=== PATIENT | female | born 1930 | race Caucasian/White ===

== ENCOUNTER 2016-10-12 15:30 | Outpatient (CLI) | payer MEDICARE, OTHER | END 2016-10-12 23:59 | DX: N28.9 Disorder of kidney and ureter, unspecified (principal); Z79.4 Long term (current) use of insulin; L03.213 Periorbital cellulitis; J04.0 Acute laryngitis; J20.9 Acute bronchitis, unspecified ==

== ENCOUNTER 2016-10-14 14:18 | Emergency (ER) | payer MEDICARE, OTHER | END 2016-10-14 17:34 | disposition home or self-care (01) | DX: R07.89 Other chest pain (principal); J06.9 Acute upper respiratory infection, unspecified; B97.89 Other viral agents as the cause of diseases classified elsewhere; I45.10 Unspecified right bundle-branch block; I11.0 Hypertensive heart disease with heart failure; I50.9 Heart failure, unspecified; E11.9 Type 2 diabetes mellitus without complications; Z79.4 Long term (current) use of insulin; Z79.82 Long term (current) use of aspirin ==

== ENCOUNTER 2016-10-18 16:15 | Outpatient (CLI) | payer MEDICARE, OTHER | END 2016-10-18 16:16 | disposition home or self-care (01) | DX: J01.90 Acute sinusitis, unspecified (principal) ==

== ENCOUNTER 2016-10-25 14:45 | Outpatient (CLI) | payer MEDICARE, OTHER | END 2016-10-25 14:46 | DX: D64.9 Anemia, unspecified (principal) ==

== ENCOUNTER 2016-11-09 15:00 | Outpatient (CLI) | payer MEDICARE, OTHER | END 2016-11-09 15:01 | DX: D64.9 Anemia, unspecified (principal) ==

== ENCOUNTER 2017-02-03 13:09 | Outpatient (CLI) | payer MEDICARE, OTHER | END 2017-02-03 13:10 | disposition home or self-care (01) | LOC: RT 13:09 | PROVIDERS: ATTEND Family Medicine | DX: R05 Cough (principal); R06.00 Dyspnea, unspecified | CPT/HCPCS: 94010; 94729 ==

== ENCOUNTER 2017-02-08 14:03 | Outpatient (CLI) | payer MEDICARE, OTHER ==
--- NOTE | 2017-02-09 16:32 | Mammography Report ---
DIGITAL SCREENING MAMMOGRAM: 02/08/2017 CLINICAL INDICATION: An 86-year-old, for screening. COMPARISON: 01/2016, 01/2015, 01/2014, 01/2013, 01/2012, 01/2011, 01/2010, 01/2009, 01/2008. TECHNIQUE: Routine CC and MLO projections were obtained of the breasts. FINDINGS: The breasts again demonstrate scattered fibroglandular densities bilaterally. Coarse and p unctate, typically benign calcifications are present. No suspicious masses, clustered microcalcificat ions, or regions of architectural distortion are identified. IMPRESSION: BENIGN FINDINGS. RECOMMENDATION: ROUTINE ANNUAL SCREENING UNLESS OTHERWISE CLINICALLY INDICATED. BIRADS CATEGORY 2-BENIGN FINDINGS. STANDARD QUALIFYING STATEMENTS 1. This examination was reviewed with the aid of Computer-Aided Detection (CAD). 2. A negative or benign imaging report should not delay biopsy if clinically suspicious findings are present. Consider surgical consultation if warranted. More than 5% of cancers are not identified by i maging. 3. Dense breasts may obscure an underlying neoplasm. JOB #: [id number] EXT JOB #:[id number]
== END 2017-02-08 14:04 | disposition home or self-care (01) ==
LOC: DI.N 14:03
PROVIDERS: ATTEND Family Medicine
DX: Z12.31 Encounter for screening mammogram for malignant neoplasm of breast (principal)
CPT/HCPCS: 77067

== ENCOUNTER 2017-03-16 09:20 | Outpatient (CLI) | payer MEDICARE, OTHER | END 2017-03-16 09:21 | LOC: LAB.WCP 09:20 | PROVIDERS: ATTEND Family Medicine | DX: N39.0 Urinary tract infection, site not specified (principal) | CPT/HCPCS: 87086 ==

== ENCOUNTER 2017-04-14 08:39 | Outpatient (CLI) | payer MEDICARE, OTHER ==
[2017-04-14 12:39] LABS: BASOPHILS % (AUTO) 0.5 %; EOSINOPHILS # (AUTO) 0.2 10^3/uL (0.0-0.7); EOSINOPHILS % (AUTO) 4.1 %; HCT - HEMATOCRIT 35.1 % (37.0-47.0); HGB - HEMOGLOBIN 11.8 g/dL (12.0-16.0); LYMPHOCYTES # (AUTO) 2.8 10^3/uL (1.5-3.5); MEAN CORPUSCULAR HEMOGLOBIN 31.2 pg (27.0-31.0); MEAN CORPUSCULAR HGB CONC 33.7 g/dL (32.0-36.0); MEAN CORPUSCULAR VOLUME 92.5 fL (81.0-99.0); MEAN PLATELET VOLUME 9.2 fL (7.9-10.8); MONOCYTES # (AUTO) 0.4 10^3/uL (0.0-1.0); MONOCYTES % (AUTO) 6.8 %; NEUTROPHILS # (AUTO) 2.3 10^3/uL (1.5-6.6); NEUTROPHILS % (AUTO) 39.6 %; NUCLEATED RED BLOOD CELLS AUTO 0.1 /100WBC; RED BLOOD COUNT 3.79 10^6/uL (4.20-5.40); RED CELL DISTRIBUTION WIDTH 14.1 % (12.0-15.0); UNCORRECTED WHITE BLOOD COUNT 5.8 x10^3/uL; WHITE BLOOD COUNT 5.8 x10^3/uL (4.8-10.8)
[2017-04-14 12:57] LABS: ALBUMIN/GLOBULIN RATIO 1.2 (1.0-2.2); BILIRUBIN,TOTAL 0.9 mg/dL (0.2-1.0); BUN - BLOOD UREA NITROGEN 38 mg/dL (6-20); CALCIUM 8.8 mg/dL (8.5-10.3); CARBON DIOXIDE - CO2 25 mmol/L (21-32); CHLORIDE 108 mmol/L (101-111); CHOL/HDL RATIO 3.6 (<4.4); CHOLESTEROL 162 mg/dL; CREATININE 2.4 mg/dL (0.4-1.0); GFR - MDRD 19 (>89); GLUCOSE 67 mg/dL (70-100); HDL CHOLESTEROL 45 mg/dL; HEMOGLOBIN A1C 0.61 g/dL; LDL/HDL RATIO 1.8 (<4.4); POTASSIUM 4.2 mmol/L (3.5-5.0); SODIUM 141 mmol/L (135-145); TOTAL PROTEIN 6.7 g/dL (6.7-8.2); TRIGLYCERIDES 183 mg/dL; VLDL CHOLESTEROL 37 mg/dL
== END 2017-04-14 08:40 | disposition home or self-care (01) ==
LOC: LAB.WCP 08:39
PROVIDERS: ATTEND Family Medicine
DX: I10 Essential (primary) hypertension (principal); E11.29 Type 2 diabetes mellitus with other diabetic kidney complication; E78.5 Hyperlipidemia, unspecified
CPT/HCPCS: 36415; 80053; 80061; 82043; 83036; 85025

== ENCOUNTER → 2017-05-08 | Outpatient (CLI) | payer MEDICARE, OTHER | LOC: LAB.WCP 08:00 | PROVIDERS: ATTEND Internal Medicine Nephrology | DX: R80.9 Proteinuria, unspecified (principal) | CPT/HCPCS: 82570; 84156 ==

== ENCOUNTER 2017-05-22 08:00 | Outpatient (CLI) | payer MEDICARE, OTHER ==
[2017-05-22 19:29] LABS: CALCIUM 8.7 mg/dL (8.5-10.3); CREATININE 2.1 mg/dL (0.4-1.0)
== END 2017-05-22 08:01 | disposition home or self-care (01) ==
LOC: LAB.WCP 08:00
PROVIDERS: ATTEND Student in an Organized Health Care Education/Training Program
DX: N05.9 Unspecified nephritic syndrome with unspecified morphologic changes (principal)
CPT/HCPCS: 36415; 80048

== ENCOUNTER 2017-05-24 15:22 | Outpatient (CLI) | payer MEDICARE, OTHER ==
--- NOTE | 2017-05-25 09:45 | Ultrasound Report ---
RENAL ULTRASOUND: 05/24/2017 CLINICAL INDICATION: Stage IV kidney disease. TECHNIQUE: Real-time scanning was performed with customer assistance representative static images obtained. FINDINGS: The right kidney measures 9.1 x 4.6 x 4.3 cm, and the left kidney measures 9.6 x 4.9 x 4.1 cm. Both kidneys demonstrate increased cortical echogenicity. No hydronephrosis or focal renal les ion is seen. Prevoid, the bladder measures 7.8 x 6.4 x 5.8 cm. No focal bladder wall lesion is seen. Bilateral u reteral jets are visualized. No postvoid residual is present. IMPRESSION: ECHOGENIC KIDNEYS, COMPATIBLE WITH MEDICAL RENAL DISEASE. NO HYDRONEPHROSIS OR POSTVOID RESIDUAL. JOB #: [id number] EXT JOB #:[id number]
== END 2017-05-24 15:23 | disposition home or self-care (01) ==
LOC: DI 15:22
PROVIDERS: ATTEND Internal Medicine Nephrology
DX: N18.4 Chronic kidney disease, stage 4 (severe) (principal)
CPT/HCPCS: 76770

== ENCOUNTER 2017-05-30 12:39 | Outpatient (CLI) | payer MEDICARE, OTHER | END 2017-05-30 12:40 | disposition home or self-care (01) | LOC: DI 12:39 | PROVIDERS: ATTEND Family Medicine | DX: I48.91 Unspecified atrial fibrillation (principal); I51.7 Cardiomegaly | CPT/HCPCS: 93306 ==

== ENCOUNTER 2017-06-16 08:00 | Outpatient (CLI) | payer MEDICARE, OTHER ==
[2017-06-16 20:04] LABS: CALCIUM 8.4 mg/dL (8.5-10.3); CREATININE 2.4 mg/dL (0.4-1.0); POTASSIUM 4.2 mmol/L (3.5-5.0)
== END 2017-06-16 08:01 | disposition home or self-care (01) ==
LOC: LAB.WCP 08:00
PROVIDERS: ATTEND Internal Medicine Nephrology
DX: N05.9 Unspecified nephritic syndrome with unspecified morphologic changes (principal)
CPT/HCPCS: 36415; 80048

== ENCOUNTER 2017-07-31 08:00 | Outpatient (CLI) | payer MEDICARE, OTHER ==
[2017-07-31 19:22] LABS: CALCIUM 8.5 mg/dL (8.5-10.3); CREATININE 2.9 mg/dL (0.4-1.0); PHOSPHORUS 4.8 mg/dL (2.5-4.6); POTASSIUM 3.5 mmol/L (3.5-5.0)
== END 2017-07-31 08:01 | disposition home or self-care (01) ==
LOC: LAB.WCP 08:00
PROVIDERS: ATTEND Internal Medicine Nephrology
DX: N05.9 Unspecified nephritic syndrome with unspecified morphologic changes (principal); R06.2 Wheezing; I10 Essential (primary) hypertension; E83.30 Disorder of phosphorus metabolism, unspecified; N25.81 Secondary hyperparathyroidism of renal origin
CPT/HCPCS: 36415; 80048; 83880; 83970; 84100

== ENCOUNTER 2017-08-06 09:26 | Emergency (ER) | payer MEDICARE, OTHER ==
[2017-08-06 09:38] VITALS: BP 144/54
[2017-08-06] MEDS ORDERED: ACETAMINOPHEN 325 MG TABLET PO STA (10:14)
--- NOTE | 2017-08-06 10:16 | ED Physician Documentation ---
PD HPI HEENT - Stated complaint Stated Complaint: R EAR PX - Chief complaint Chief Complaint: Heent - History obtained from History obtained from: Patient, Friend - History of Present Illness Timing - onset: How many weeks ago (1) Timing - duration: Weeks (1) Timing - details: Gradual onset, Still present Location: Right ear Associated symptoms: Congestion, Rhinorrhea, Cough. No: Fever Similar symptoms before: Diagnosis (ear infection) Recently seen: Not recently seen - Additional information Additional information: 87-year-old female has had a cough and congestion for the past week. She has developed some yellow and green phlegm from her nose and coughing. She is not having chest pain or shortness of breath she has not had a fever. She has developed ear pain this morning and she is coming to the emergency department. She has pain in the right ear only. She has last seen her primary care doctor in follow-up in June for a prior URI. Review of Systems Constitutional: denies: Fever Eyes: denies: Decreased vision Ears: reports: Ear pain Nose: reports: Rhinorrhea / runny nose, Congestion Throat: denies: Sore throat Cardiac: denies: Chest pain / pressure, Palpitations Respiratory: reports: Cough. 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: Hysterectomy - Present Medications Home Medications: Ambulatory Orders Medication Instructions Recorded Confirmed Aspirin 81 mg PO DAILY 07/06/14 08/06/17 Insulin Glargine,Hum.rec.anlog 15 units SUBQ QPM 07/06/14 08/06/17 [Lantus Solostar] Insulin Glulisine [Apidra Solostar] 4 units SUBQ 0800,1700 07/06/14 08/06/17 Lisinopril 20 mg PO BID 07/06/14 08/06/17 Simvastatin [Zocor] 20 mg PO QPM 07/06/14 08/06/17 Insulin Glulisine [Apidra] 8 unit SUBQ 1200 01/20/16 08/06/17 Azithromycin [Zithromax] 250 mg PO DAILY #6 tablet 08/06/17 - Allergies Allergies/Adverse Reactions: Allergies Allergy/AdvReac Type Severity Reaction Status Date / Time butalbital [From Fiorinal] Allergy Unknown Verified 10/14/16 14:36 Sulfa (Sulfonamide Allergy Unknown Verified 08/06/17 09:38 Antibiotics) sulfamethoxazole Allergy Unknown Verified 10/14/16 14:36 [From Aprra] trimethoprim [From ] Allergy Unknown Verified 10/14/16 14:36 venom-honey bee Allergy Anaphylaxis Verified 10/14/16 14:36 [bee venom (honey bee)] - Social History Does the pt smoke?: No Smoking Status: Never smoker Does the pt drink ETOH?: No Does the pt have substance abuse?: No PD ED PE NORMAL - Vitals Vital signs reviewed: Yes (Hypertensive) - General General: No acute distress, Well developed/nourished - HEENT HEENT: Atraumatic, PERRL, EOMI, Other (There is inflammation of the right TM with flattening of the landmarks. The left TM has minimal erythema.) - Neck Neck: Supple, no meningeal sign, No bony TTP - Cardiac Cardiac: RRR, Other (2 out of 6 holosystolic murmur at left sternal border) - Respiratory Respiratory: No respiratory distress, Clear bilaterally - Abdomen Abdomen: Soft, Non tender - Back Back: No CVA TTP, No spinal TTP - Derm Derm: Normal color, Warm and dry, No rash - Extremities Extremities: No deformity, No edema - Neuro Neuro: No motor deficit, No sensory deficit Eye Opening: Spontaneous Motor: Obeys Commands Verbal: Oriented GCS Score: 15 - Psych Psych: Normal mood, Normal affect Results - Vitals Vitals: Vital Signs - 24 hr 08/06/17 09:34 Temperature 36.1 C L Heart Rate 100 Respiratory 18 Rate Blood Pressure 144/54 H O2 Saturation 93 Oxygen O2 Source Room air PD MEDICAL DECISION MAKING - ED course Complexity details: reviewed old records, considered differential, d/w patient, d/w family ED course: 87-year-old female with right otitis media is given Tylenol orally for pain control. Will place her on some azithromycin. She has diabetes and we will forego use of dexamethasone. Departure - Departure Disposition: 01 Home, Self Care Clinical Impression: Otitis media Qualifiers: Otitis media type: suppurative Chronicity: acute Laterality: right Recurrence: not specified as recurrent Spontaneous tympanic membrane rupture: without spontaneous rupture Qualified Code(s): H66.001 - Acute suppurative otitis media without spontaneous rupture of ear drum, right ear Condition: Stable Instructions: ED Otitis Media Acute Adult Follow-Up: Tabitha Kingston MD [Primary Care Provider] - Prescriptions: Azithromycin [Zithromax] 250 mg PO DAILY #6 tablet
[2017-08-06] MEDS ORDERED: ACETAMINOPHEN 325 MG TABLET PO ONE (10:26)
== END 2017-08-06 10:28 | disposition home or self-care (01) ==
LOC: ED 09:26
DX: H66.001 Acute suppurative otitis media without spontaneous rupture of ear drum, right ear (principal); I11.0 Hypertensive heart disease with heart failure; I50.9 Heart failure, unspecified; E11.9 Type 2 diabetes mellitus without complications; Z79.4 Long term (current) use of insulin; Z79.82 Long term (current) use of aspirin
CPT/HCPCS: 99283; A9270

== ENCOUNTER 2017-08-15 08:46 | Outpatient (CLI) | payer MEDICARE, OTHER ==
--- NOTE | 2017-08-15 10:18 | Nuclear Medicine Prelim Report ---
Exam: NM LUNG VENT/PERF V/Q IMPRESSION: 1. No ventilation/perfusion mismatches to indicate pulmonary emboli. Low probability for acute pulmon yuliya embolism. [facility] SITE ID: [id number]
--- NOTE | 2017-08-15 10:21 | Nuclear Medicine Report ---
EXAM: VENTILATION/PERFUSION SCAN (V/Q SCAN) EXAM DATE: 08/15/2017 09:51 AM. CLINICAL HISTORY: RESPIRATORY DISTRESS. COMPARISON: None. TECHNIQUE: Patient was administered 42.4 mCi of technetium 99m DTPA aerosol by inhalation and 8 stand turner ventilation images of the lungs were obtained. Next, the patient was injected with 5.0 mCi of carlyle hnetium 99m MAA intravenously and 8 standard perfusion images of the lungs were obtained. FINDINGS: Perfusion images demonstrate mildly inhomogeneous perfusion to the lungs bilaterally without convinci ng segmental deficit. Endotracheal images demonstrate corresponding radiotracer deposition without co nvincing mismatch. There is minimal central airway deposition. IMPRESSION: 1. No ventilation/perfusion mismatches to indicate pulmonary emboli. Low probability for acute pulmon yuliya embolism. [facility] Referring Provider Line: [phone] SITE ID: [id number]
== END 2017-08-15 08:47 | disposition home or self-care (01) ==
LOC: DI 08:46
PROVIDERS: ATTEND Family Medicine
DX: R06.09 Other forms of dyspnea (principal)
CPT/HCPCS: 78582; A9539; A9540

== ENCOUNTER 2017-08-22 08:00 | Outpatient (CLI) | payer MEDICARE, OTHER | END 2017-08-22 08:01 | disposition home or self-care (01) | LOC: LAB.WCP 08:00 | PROVIDERS: ATTEND Family Medicine | DX: I50.9 Heart failure, unspecified (principal) | CPT/HCPCS: 36415; 83880 ==

== ENCOUNTER 2017-08-29 08:00 | Outpatient (CLI) | payer MEDICARE, OTHER | END 2017-08-29 08:01 | disposition home or self-care (01) | LOC: LAB.WCP 08:00 | PROVIDERS: ATTEND Family Medicine | DX: I50.9 Heart failure, unspecified (principal) | CPT/HCPCS: 36415; 83880 ==

== ENCOUNTER 2017-09-05 14:35 | Outpatient (CLI) | payer MEDICARE, OTHER ==
[2017-09-05 19:58] LABS: CALCIUM 8.7 mg/dL (8.5-10.3); CREATININE 3.3 mg/dL (0.4-1.0)
== END 2017-09-05 14:36 | disposition home or self-care (01) ==
LOC: LAB.WCP 14:35
PROVIDERS: ATTEND Family Medicine
DX: Z79.01 Long term (current) use of anticoagulants (principal); I50.32 Chronic diastolic (congestive) heart failure; N05.9 Unspecified nephritic syndrome with unspecified morphologic changes
CPT/HCPCS: 36415; 80048; 83880; 85610; 85730

== ENCOUNTER 2017-09-21 08:00 | Outpatient (CLI) | payer MEDICARE, OTHER ==
[2017-09-21 12:54] LABS: CALCIUM 8.5 mg/dL (8.5-10.3); CREATININE 3.2 mg/dL (0.4-1.0)
== END 2017-09-21 08:01 | disposition home or self-care (01) ==
LOC: LAB.WCP 08:00
PROVIDERS: ATTEND Internal Medicine Nephrology
DX: N05.9 Unspecified nephritic syndrome with unspecified morphologic changes (principal)
CPT/HCPCS: 80048

== ENCOUNTER 2017-10-02 11:15 | Outpatient (CLI) | payer MEDICARE, OTHER ==
[2017-10-02 19:53] LABS: BASOPHILS % (AUTO) 0.5 %; EOSINOPHILS # (AUTO) 0.1 10^3/uL (0.0-0.7); EOSINOPHILS % (AUTO) 1.4 %; LYMPHOCYTES # (AUTO) 1.9 10^3/uL (1.5-3.5); LYMPHOCYTES % (AUTO) 42.9 %; MEAN CORPUSCULAR HGB CONC 32.7 g/dL (32.0-36.0); MEAN CORPUSCULAR VOLUME 91.6 fL (81.0-99.0); MEAN PLATELET VOLUME 8.8 fL (7.9-10.8); MONOCYTES # (AUTO) 0.5 10^3/uL (0.0-1.0); MONOCYTES % (AUTO) 10.4 %; NEUTROPHILS % (AUTO) 44.8 %; PLT - PLATELET COUNT 138 10^3/uL (130-450); RED BLOOD COUNT 2.99 10^6/uL (4.20-5.40); RED CELL DISTRIBUTION WIDTH 14.5 % (12.0-15.0); WHITE BLOOD COUNT 4.5 x10^3/uL (4.8-10.8)
[2017-10-02 20:15] LABS: CALCIUM 7.9 mg/dL (8.5-10.3); CREATININE 2.3 mg/dL (0.4-1.0)
[2017-10-02 22:36] LABS: PLATELET ESTIMATE, MANUAL NORMAL (130-450,000) (NORMAL); PLATELET MORPHOLOGY NORMAL APPEARANCE (NORMAL)
== END 2017-10-02 11:16 | disposition home or self-care (01) ==
LOC: LAB.WCP 11:15
PROVIDERS: ATTEND Internal Medicine Nephrology
DX: N05.9 Unspecified nephritic syndrome with unspecified morphologic changes (principal); I50.32 Chronic diastolic (congestive) heart failure; D70.9 Neutropenia, unspecified
CPT/HCPCS: 36415; 80048; 83880; 85025

== ENCOUNTER 2017-10-15 02:39 | Outpatient (CLI) | payer MEDICARE, OTHER | END 2017-10-15 02:40 | disposition critical access hospital (66) | LOC: EMS 02:39 | PROVIDERS: ATTEND Surgery | DX: R06.02 Shortness of breath (principal) | CPT/HCPCS: A0425; A0427 ==

== ENCOUNTER 2017-10-15 02:59 | Inpatient (IN) | payer MEDICARE, OTHER ==
[2017-10-15 03:43] LABS: BASOPHILS % (AUTO) 0.6 %; EOSINOPHILS # (AUTO) 0.1 10^3/uL (0.0-0.7); EOSINOPHILS % (AUTO) 1.5 %; HGB - HEMOGLOBIN 8.8 g/dL (12.0-16.0); LYMPHOCYTES # (AUTO) 1.8 10^3/uL (1.5-3.5); LYMPHOCYTES % (AUTO) 40.1 %; MEAN CORPUSCULAR HEMOGLOBIN 30.7 pg (27.0-31.0); MEAN CORPUSCULAR HGB CONC 34.2 g/dL (32.0-36.0); MEAN CORPUSCULAR VOLUME 89.8 fL (81.0-99.0); MEAN PLATELET VOLUME 7.4 fL (7.9-10.8); MONOCYTES # (AUTO) 0.5 10^3/uL (0.0-1.0); MONOCYTES % (AUTO) 10.6 %; NEUTROPHILS # (AUTO) 2.2 10^3/uL (1.5-6.6); NEUTROPHILS % (AUTO) 47.2 %; PLT - PLATELET COUNT 146 10^3/uL (130-450); RED BLOOD COUNT 2.87 10^6/uL (4.20-5.40); RED CELL DISTRIBUTION WIDTH 14.8 % (12.0-15.0); WHITE BLOOD COUNT 4.6 x10^3/uL (4.8-10.8)
[2017-10-15] MEDS ORDERED: IPRATROPIUM/ALBUTEROL 3 ML NEB INH STA (03:44)
[2017-10-15] MEDS ORDERED: LEVALBUTEROL 1.25 MG/3 ML NEB INH STA (03:44)
[2017-10-15 03:52] LABS: CALCIUM 8.7 mg/dL (8.5-10.3); CREATININE 2.7 mg/dL (0.4-1.0)
--- NOTE | 2017-10-15 03:56 | ED Physician Documentation ---
PD HPI DYSPNEA - Stated complaint Stated Complaint: SOA/CHEST PAIN - Chief complaint Chief Complaint: Resp - History obtained from History obtained from: Patient - History of Present Illness Timing - onset: How many days ago (4-5 days ago) Timing - details: Gradual onset, Waxing and waning Improved by: Rest Worsened by: Exertion, Coughing Associated symptoms: Cough, Chest pain / discomfort (transient chest pain associated with coughing). No: Fever Similar symptoms before: Has not had sx before Recently seen: Clinic (evaluated at outpatient clinic 2 days ago for cough, dyspnea, and was prescribed proair MDI but she reports no noticeable improvement with this medication) - Additional information Additional information: c/o several days of gradual onset, gradually worsening dyspnea and productive cough. Tonight she has also developed nausea, vomiting. Review of Systems Constitutional: reports: Fatigue. denies: Fever, Chills, Sweats Nose: reports: Reviewed and negative Throat: reports: Reviewed and negative Cardiac: reports: Chest pain / pressure (only with coughing). denies: Palpitations, Pedal edema, Calf pain Respiratory: reports: Dyspnea, Cough. denies: Wheezing GI: reports: Nausea, Vomiting. denies: Abdominal Pain, Constipation, Diarrhea : denies: Dysuria, Frequency Skin: denies: Rash Neurologic: reports: Generalized weakness. 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: Hysterectomy - Present Medications Home Medications: Ambulatory Orders Medication Instructions Recorded Confirmed Insulin Glargine,Hum.rec.anlog 20 units SUBQ QPM 07/06/14 10/15/17 [Lantus Solostar] Simvastatin [Zocor] 20 mg PO QPM 07/06/14 10/15/17 Insulin Glulisine [Apidra] 6 unit SUBQ BIDWM 01/20/16 10/15/17 Doxazosin [Cardura] 4 mg PO QPM 10/15/17 10/15/17 Furosemide [Lasix] 40 mg PO DAILY 10/15/17 10/15/17 Insulin Glulisine [Apidra Solostar] 8 unit SUBQ 1200 10/15/17 10/15/17 Lisinopril [Lisinopril] 20 mg PO BID 10/15/17 10/15/17 Nitroglycerin 0.1 mg/Hr Patch 1 each TOP DAILY 10/15/17 10/15/17 [Nitro-Dur] amLODIPine [Norvasc] 5 mg PO QPM 10/15/17 10/15/17 hydrALAZINE [Apresoline] 25 mg PO QID 10/15/17 10/15/17 hydroCHLOROthiazide [Hydrodiuril] 25 mg PO DAILY 10/15/17 10/15/17 - Allergies Allergies/Adverse Reactions: Allergies Allergy/AdvReac Type Severity Reaction Status Date / Time butalbital [From Fiorinal] Allergy Unknown Verified 10/14/16 14:36 Sulfa (Sulfonamide Allergy Unknown Verified 08/06/17 09:38 Antibiotics) sulfamethoxazole Allergy Unknown Verified 10/14/16 14:36 [From Aprra] trimethoprim [From ] Allergy Unknown Verified 10/14/16 14:36 venom-honey bee Allergy Anaphylaxis Verified 10/14/16 14:36 [bee venom (honey bee)] - Social History Does the pt smoke?: No Smoking Status: Never smoker Does the pt drink ETOH?: No Does the pt have substance abuse?: No PD ED PE NORMAL - Vitals Vital signs reviewed: Yes - General General: Alert and oriented X 3, Well developed/nourished, Other (appears anxious; vomiting ("dry heaving") at times during H+P) - HEENT HEENT: Moist mucous membranes - Neck Neck: Supple, no meningeal sign - Cardiac Cardiac: RRR, No murmur - Respiratory Respiratory: No respiratory distress, Clear bilaterally - Abdomen Abdomen: Normal bowel sounds, Soft, Non tender, Non distended - Back Back: No CVA TTP - Derm Derm: Normal color - Extremities Extremities: No edema - Neuro Neuro: Alert and oriented X 3 Results - Vitals Vitals: Oxygen O2 Source Room air - EKG (time done) No standard instances Rate: Rate (enter#) (101), Tachy Rhythm: Sinus tachycardia [place]: Normal Intervals: Normal [place], RBBB QRS: Normal Ischemia: Normal ST segments - Labs Labs: Microbiology 10/15/17 03:45 Blood Culture - Preliminary Blood NO GROWTH AFTER 1 DAY 10/15/17 03:40 Blood Culture - Preliminary Blood NO GROWTH AFTER 1 DAY Laboratory Tests 10/15/17 10/15/17 10/15/17 03:25 03:25 03:25 WBC 4.6 L RBC 2.87 L Hgb 8.8 L Hct 25.8 L MCV 89.8 MCH 30.7 MCHC 34.2 RDW 14.8 Plt Count 146 MPV 7.4 L Neut # 2.2 Lymph # 1.8 [place] # 0.5 Eos # 0.1 Baso # 0.0 Absolute Nucleated RBC 0.00 Nucleated RBC % 0.0 Sodium 136 Potassium 3.1 L Chloride 101 Carbon Dioxide 22 Anion Gap 13.0 BUN 63 H Creatinine 2.7 H Estimated GFR (MDRD) 17 L Glucose 208 H Lactic Acid Calcium 8.7 Troponin I 0.06 B-Natriuretic Peptide Influenza A (Rapid) Influenza B (Rapid) Influenza Types A,B Ag 10/15/17 10/15/17 10/15/17 03:25 03:36 03:42 WBC RBC Hgb Hct MCV MCH MCHC RDW Plt Count MPV Neut # Lymph # [place] # Eos # Baso # Absolute Nucleated RBC Nucleated RBC % Sodium Potassium Chloride Carbon Dioxide Anion Gap BUN Creatinine Estimated GFR (MDRD) Glucose Lactic Acid 1.2 Calcium Troponin I B-Natriuretic Peptide 318 H Influenza A (Rapid) Negative Influenza B (Rapid) Negative Influenza Types A,B Ag - - Rads (name of study) chest xray Radiology: Prelim report reviewed, See rad report PD MEDICAL DECISION MAKING - ED course Complexity details: reviewed results, re-evaluated patient, considered differential, d/w patient ED course: patient continued to have nausea and vomiting during ED stay despite IV fluids and zofran. will admit for further testing, observation, and treatment Departure - Departure Disposition: [facility] DC/Xfer Clinical Impression: Vomiting Qualifiers: Vomiting type: unspecified Vomiting Intractability: intractable Nausea presence : with nausea Qualified Code(s): R11.2 - Nausea with vomiting, unspecified Chest pain Qualifiers: Chest pain type: unspecified Qualified Code(s): R07.9 - Chest pain, unspecified Condition: Stable Discharge Date/Time: 10/15/17 07:55
--- NOTE | 2017-10-15 04:46 | XRAY Preliminary Report ---
Exam: XR CHEST 2 VIEW X-RAY IMPRESSION: 1. Large lung volumes and borderline heart size. [facility] SITE ID: [id number]
--- NOTE | 2017-10-15 04:46 | XRAY Report ---
EXAM: CHEST RADIOGRAPHY EXAM DATE: 10/15/2017 04:34 AM. CLINICAL HISTORY: Cough, dyspnea. COMPARISON: 06/19/2017. TECHNIQUE: 2 views. FINDINGS: Lungs/Pleura: Large lung volumes. No alveolar consolidation or pleural effusion seen. No pneumothorax . Mediastinum: Heart size upper normal. Aortic atherosclerosis. Other: Osteopenia. Rotator cuff atrophy in the shoulders. IMPRESSION: 1. Large lung volumes and borderline heart size. [facility] Referring Provider Line: [phone] SITE ID: [id number]
[2017-10-15] MEDS ORDERED: ONDANSETRON 4 MG/2 ML VIAL IVP STA ×3 (04:48→06:55)
[2017-10-15] MEDS ORDERED: SODIUM CHLORIDE 0.9% 500 ML IV STA (05:21)
[2017-10-15] MEDS ORDERED: MORPHINE 2 MG/ML CARPUJECT IVP PRN (06:39)
--- NOTE | 2017-10-15 07:22 | HISTORY & PHYSICAL EXAMINATION ---
Chief Complaint - Chief Complaint Chief Complaint: nausea and vomiting History of Present Illness - Admitted From Admitted From:: ED - History Obtained From Records Reviewed: yes History obtained from: chart review, friend, patient Exam Limitations: physical condition - History of Present Illness HPI Comment/Other: Ayde Boudreaux is an 87-year old female with an extensive past medical history of DM type 2, hypertension, hyperlipidemia, sciatica, mild aortic stenosis, CKD stage 4-sees nephrology, and CHF. The patient pressed her life line at around 2AM with complaints of nausea and vomiting and was brought to the ED for further evaluation. She has been sick since June of 2017 and most recently got an eusthasian tube implanted in her right ear for recurrent infections. She was found to be febrile with a temp max of 37.9 in the ED, hypertensive with a blood pressure of 154/94, and tachycardic with a heart rate of 103. Her WBC was actually low at 4.6. Patient will be admitted to inpatient for further treatment of nausea, chest pain work up including serial troponins and evaluation of febrile status. 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 Her mother had a history of DM type 2, father with no known illnesses. She as 4 brothers, 3 sisters, 3 of which have of cancer, including colon cancer. She also had a twin brother who of a CVA, DC. Living arrangement: At home Living Situation: Alone Social History Notes: The patient is , her ~2 years ago at age 88 from an [place]. She has one daughter who lives in [place] and multiple grandchildren. Her granddaughter, Cary and is listed as first contact lives in [place], [place]. The patient lives in [place], alone in a 1-story home. She has a few life-long friends who are close to her, the main friend being Harriet. 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 She states that she does not drink alcohol, use illicit drugs, and has never been a smoker. - Substance History Use: Uses substance without health or social issues: NONE Abuse: Recurrent use of substance despite neg consequences: NONE Dependence: Experiences withdrawal or developed tolerances: NONE - POLST Patient has POLST: No POLST Status: Limited Interventions (Per interview with family friend, Harriet and phone interview with grand daughter, Cary, patient does not want to be left on a ventilator and/or not kept alive if she may be brain .) Meds/Allgy - Home Medications Home Medications: Ambulatory Orders Medication Instructions Recorded Confirmed Insulin Glargine,Hum.rec.anlog 20 units SUBQ QPM 07/06/14 10/15/17 [Lantus Solostar] Simvastatin [Zocor] 20 mg PO QPM 07/06/14 10/15/17 Insulin Glulisine [Apidra] 6 unit SUBQ BIDWM 01/20/16 10/15/17 Apixaban [Eliquis] 2.5 mg PO BID 10/15/17 10/15/17 Doxazosin [Cardura] 4 mg PO QPM 10/15/17 10/15/17 Furosemide [Lasix] 40 mg PO DAILY 10/15/17 10/15/17 Insulin Glulisine [Apidra Solostar] 8 unit SUBQ 1200 10/15/17 10/15/17 Lisinopril [Lisinopril] 20 mg PO BID 10/15/17 10/15/17 Nitroglycerin 0.1 mg/Hr Patch 1 each TOP DAILY 10/15/17 10/15/17 [Nitro-Dur] amLODIPine [Norvasc] 5 mg PO QPM 10/15/17 10/15/17 hydrALAZINE [Apresoline] 25 mg PO QID 10/15/17 10/15/17 hydroCHLOROthiazide [Hydrodiuril] 25 mg PO DAILY 10/15/17 10/15/17 - Allergies Allergies/Adverse Reactions: Allergies Allergy/AdvReac Type Severity Reaction Status Date / Time butalbital [From Fiorinal] Allergy Unknown Verified 10/14/16 14:36 Sulfa (Sulfonamide Allergy Unknown Verified 08/06/17 09:38 Antibiotics) sulfamethoxazole Allergy Unknown Verified 10/14/16 14:36 [From ] trimethoprim [From ] Allergy Unknown Verified 10/14/16 14:36 venom-honey bee Allergy Anaphylaxis Verified 10/14/16 14:36 [bee venom (honey bee)] Review of Systems - Constitutional Constitutional: reports: Fatigue, Fever, Weakness, Poor appetite - Eyes Eyes: reports: Corrective lenses - Ears, Nose & Throat Ears, Nose & Throat: reports: Ear pain, Hearing loss, Nasal congestion - Cardiovascular Cariovascular: reports: Chest pain (resolved, but was a primary complaint.), Lightheadedness, Decr. exercise tolerance. denies: Irregular heart rate, Palpitations - Respiratory Respiratory: reports: Cough, SOB with exertion - Gastrointestinal Gastrointestinal: reports: Diarrhea, Nausea, Vomiting, Reflux/heartburn, Poor appetite - Genitourinary Genitourinary: reports: Frequency, Urgency, Incontinence, Nocturia - Musculoskeletal Musculoskeletal: reports: Limited range of motion, Joint swelling - Integumentary Integumentary: denies: Rash, Pruritis - Neurological Neurological: denies: Focal weakness, Headache, Dizziness - Psychiatric Psychiatric: denies: Depression, Anxiety - Endocrine Endocrine: reports: Intolerance to cold - Hematologic/Lymphatic Hematologic/Lymphatic: reports: Anemia, Recurrent infections - All Other Systems All Other Systems: reports: Reviewed and negative Exam - Vital Signs Reviewed Vital Signs: Yes Vital Signs: Vital Signs x48h Temp Pulse Resp BP Pulse Ox 10/15/17 07:04 37.5 C 88 18 148/47 H 93 - Physical Exam General Appearance: positive: Alert, Moderate distress, Anxious, Lethargic Eyes Bilateral: positive: Normal inspection ENT: positive: ENT inspection nml, Pharynx nml, Dry mucous membranes Neck: positive: Nml inspection, Thyroid nml, No JVD, Stiff neck Respiratory: positive: Chest non-tender, No respiratory distress, Other (coarse crackles bilateral lower lobes.) Cardiovascular: positive: No gallop, Irregularly irregular, Systolic murmur, Decreased pulse(s) Peripheral Pulses: positive: 1+ Abdomen: positive: Tenderness, Hepatomegaly, Abnml bowel sounds Back: positive: Nml inspection Skin: positive: No rash, Warm, Dry, Pallor Extremities: positive: Non-tender, Full ROM, Nml appearance, No pedal edema Neurologic/Psychiatric: positive: Disoriented to time, Weakness, Sensory loss, Depressed mood/affect Reflexes: Bicep (R): 2+, Bicep (L): 2+ Conclusion/Plan - Problem List (1) Diabetes mellitus type 2 in nonobese Conclusion/Plan: Patient is a known diabetic and is insulin dependent on daily Lantus. Plan: Continue home doses and monitor blood sugars. (2) CHF (congestive heart failure) Conclusion/Plan: Patient last had an echocardiogram in May 2017. 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 Patient remains on medical management including a diuretic and PAOLA/ARB. Repeat echocardiogram was completed and shows worsening aortic stenosis. Plan: Maintain fluid balance and continue medications with the exception of diuretic due to IV resuscitation. Qualifiers: Congestive heart failure type: combined (3) Community acquired pneumonia Conclusion/Plan: Upon admission, a chest x-ray did not indicate pneumonia possibly due to patient being low on fluids. An abdominal CT was obtained due to nausea and confirms pneumonia. Patient had a temp max today of 39.2. Plan: Azithromycin IV for treatment of CAP. Attempt to obtain sputum cultures. Await blood culture results. Qualifiers: Lung location: lower lobe of lung (4) Intractable nausea and vomiting Conclusion/Plan: Upon transport to the nursing floor patient was noted to be dry heaving, with ongoing nausea. Per chart review, patient was having this in the middle of the night and this is also her primary complaint to me. Plan: Treat with anti-emetics and gentle IVFs. - Lab Results Lab results reviewed: Yes Fish Bones: 10/16/17 05:23 10/16/17 05:23 - Diagnostic Imaging Results Diagnostic Imaging Results: positive: Prelim report reviewed, Final report reviewed Diagnostic Imaging Results Comments: EXAM: CHEST RADIOGRAPHY EXAM DATE: 10/15/2017 04:34 AM. CLINICAL HISTORY: Cough, dyspnea. COMPARISON: 06/19/2017. TECHNIQUE: 2 views. FINDINGS: Lungs/Pleura: Large lung volumes. No alveolar consolidation or pleural effusion seen. No pneumothorax. Mediastinum: Heart size upper normal. Aortic atherosclerosis. Other: Osteopenia. Rotator cuff atrophy in the shoulders. IMPRESSION: 1. Large lung volumes and borderline heart size. EXAM: CT ABDOMEN AND PELVIS EXAM DATE: 10/15/2017 09:07 AM. CLINICAL HISTORY: Nausea and vomiting. COMPARISONS: None. TECHNIQUE: Routine helical CT imaging was performed through the abdomen and pelvis. IV contrast: None. Enteric contrast: No. Reconstructions: Coronal and sagittal. In accordance with CT protocol optimization, one or more of the following dose reduction techniques were utilized for this exam: automated exposure control, adjustment of mA and/or KV based on patient size, or use of iterative reconstructive technique. FINDINGS: Lung Bases: Patchy consolidation at the lung bases bilaterally most pronounced at the right lower lobe and to a lesser degree the right middle and left lower lobe, suggesting pneumonia. Liver: Nodular contour suggesting cirrhosis. No convincing focal lesion. Gallbladder/Bile Ducts: Tiny calcified dependent gallstone. No secondary signs of inflammation or evidence of ductal enlargement. Spleen: Normal. Pancreas: Normal. Adrenal Glands: Normal. Kidneys: No hydronephrosis. 8 mm exophytic right lower pole renal cortical hypodensity, indeterminate by noncontrast CT although possibly cyst. Ultrasound correlation suggested. Peritoneal Cavity/Bowel: No free air or free fluid. Scattered primarily sigmoid colonic diverticulosis. No evidence of obstruction. Appendix is not clearly visualized; no pericecal inflammatory changes are evident. Pelvic Organs: Urinary bladder is decompressed. Uterus is absent. Ovaries are not identified and may be absent. Vasculature: No aneurysms or other significant abnormality. Fairly diffuse atherosclerotic calcification of the aorta. Bones: No definite acute fracture or suspicious bony lesion. Large superior endplate Schmorl's node and minimal central depression at L2. Other: Small epigastric fat-containing ventral hernia. IMPRESSION: 1. Bibasal pulmonary consolidation most pronounced at the right lower lobe, consistent with pneumonia. 2. Cirrhosis. 3. Cholelithiasis. 4. Diverticulosis. 5. Indeterminate 8 mm right lower pole renal cortical hypodensity. Ultrasound correlation suggested. 6. Other findings as noted above. EXAM ECHOCARDIOGRAM: 10/15/17 The LV size is decreased. Moderate concentric LV hyertrophy. Overall LV systolic function is normal with an EF of 70-75%. Pseudonormal LV filling pattern consistent with Grade II diastolic dysfunction. No regional wall motion abnormalities are seen. The RV is normal in size and function. Moderate increase in the LA volume index. The RA size is normal. The aortic valve leaflets are mild-moderately calcified. Mild aortic stenosis with peak/mean pressure gradient of 40mmHg/23mmHg, the aortic valve area by continuity equation is 1.85. There is trace-mild aortic regurg, as compared to the 05/2017 echo, aortic stenosis has progressed. Mild mitral regurg, mild tricuspid regurg. Moderately abnormal right heart pressures. The RVSP at rest is 58mmHg. No pulmonic stenosis. - EKG Results EKG Interpreted Independently: Yes Core Measures - Anticipated LOS I expect patient to be DC'd or transferred within 96 hours.: Yes - DVT/VTE - Prophylaxis VTE/DVT Device ordered at admit?: Yes VTE/DVT Prophylaxis med ordered at admit?: Yes - Stroke - Rehab Assessment Rehab services assessment to be ordered?: Yes - AMI - Statin at Admit Aspirin Prescribed on Admit: Yes
[2017-10-15] MEDS ORDERED: PROCHLORPERAZINE INJ 10 MG in SODIUM CHLORIDE 0.9% 50 ML IV PRN (08:26)
[2017-10-15] MEDS ORDERED: INSULIN GLARGINE 300 UNIT/3 ML PEN SUBQ SCH ×3 (09:00→21:00)
[2017-10-15] MEDS ORDERED: ENOXAPARIN 40 MG/0.4 ML SYRINGE SUBQ SCH (09:00)
[2017-10-15] MEDS: POLYETHYLENE GLYCOL 3350 17 GM PACKET PO SCH (09:40)
--- NOTE | 2017-10-15 09:44 | CT Report ---
EXAM: CT ABDOMEN AND PELVIS EXAM DATE: 10/15/2017 09:07 AM. CLINICAL HISTORY: Nausea and vomiting. COMPARISONS: None. TECHNIQUE: Routine helical CT imaging was performed through the abdomen and pelvis. IV contrast: None . Enteric contrast: No. Reconstructions: Coronal and sagittal. In accordance with CT protocol optimization, one or more of the following dose reduction techniques w ere utilized for this exam: automated exposure control, adjustment of mA and/or KV based on patient s ize, or use of iterative reconstructive technique. FINDINGS: Lung Bases: Patchy consolidation at the lung bases bilaterally most pronounced at the right lower lob e and to a lesser degree the right middle and left lower lobe, suggesting pneumonia. Liver: Nodular contour suggesting cirrhosis. No convincing focal lesion. Gallbladder/Bile Ducts: Tiny calcified dependent gallstone. No secondary signs of inflammation or anisa dence of ductal enlargement. Spleen: Normal. Pancreas: Normal. Adrenal Glands: Normal. Kidneys: No hydronephrosis. 8 mm exophytic right lower pole renal cortical hypodensity, indeterminate by noncontrast CT although possibly cyst. Ultrasound correlation suggested. Peritoneal Cavity/Bowel: No free air or free fluid. Scattered primarily sigmoid colonic diverticulosi s. No evidence of obstruction. Appendix is not clearly visualized; no pericecal inflammatory changes are evident. Pelvic Organs: Urinary bladder is decompressed. Uterus is absent. Ovaries are not identified and may be absent. Vasculature: No aneurysms or other significant abnormality. Fairly diffuse atherosclerotic calcificat ion of the aorta. Bones: No definite acute fracture or suspicious bony lesion. Large superior endplate Schmorl's node a nd minimal central depression at L2. Other: Small epigastric fat-containing ventral hernia. IMPRESSION: 1. Bibasal pulmonary consolidation most pronounced at the right lower lobe, consistent with pneumonia . 2. Cirrhosis. 3. Cholelithiasis. 4. Diverticulosis. 5. Indeterminate 8 mm right lower pole renal cortical hypodensity. Ultrasound correlation suggested. 6. Other findings as noted above. [facility] Referring Provider Line: [phone] SITE ID: [id number]
[2017-10-15] MEDS: FAMOTIDINE 20 MG TABLET PO SCH (09:50)
[2017-10-15 09:52] LABS: BASOPHILS % (AUTO) 1.2 %; HGB - HEMOGLOBIN 8.5 g/dL (12.0-16.0); LYMPHOCYTES % (AUTO) 19.1 %; MEAN CORPUSCULAR HEMOGLOBIN 30.6 pg (27.0-31.0); MEAN CORPUSCULAR HGB CONC 33.9 g/dL (32.0-36.0); MEAN CORPUSCULAR VOLUME 90.2 fL (81.0-99.0); MEAN PLATELET VOLUME 7.4 fL (7.9-10.8); MONOCYTES % (AUTO) 8.2 %; NEUTROPHILS % (AUTO) 71.5 %; PLT - PLATELET COUNT 133 10^3/uL (130-450); RED BLOOD COUNT 2.79 10^6/uL (4.20-5.40); RED CELL DISTRIBUTION WIDTH 14.2 % (12.0-15.0)
[2017-10-15] MEDS: POTASSIUM CHLOR 10 MEQ/100 ML 10 MEQ/100 ML BAG IV SCH ×4 (09:54→18:01)
[2017-10-15 09:58] LABS: ABNORMAL LYMPHS % (MANUAL) 0 %
[2017-10-15 10:01] LABS: CALCIUM 8.2 mg/dL (8.5-10.3); CREATININE 2.6 mg/dL (0.4-1.0)
[2017-10-15 10:05] LABS: TROPONIN I 0.1 ng/mL (<0.49)
[2017-10-15 10:06] LABS: HB2 TOTAL 9.3 g/dL; HEMOGLOBIN A1C 0.45 g/dL; HEMOGLOBIN A1C % 6.6 % (4.6-6.2)
[2017-10-15 10:13] LABS: BAND NEUTROPHILS % (MANUAL) 36 %; LYMPHOCYTES # (MANUAL) 0.4 10^3/uL (1.5-3.5); LYMPHOCYTES % (MANUAL) 19 %; METAMYELOCYTES % (MANUAL) 6 %; NEUTROPHILS # (MANUAL) 1.5 10^3/uL (1.5-6.6); NEUTROPHILS % (MANUAL) 37 %
[2017-10-15] MEDS: INSULIN ASPART 300 UNIT/3 ML PEN SUBQ SCH ×4 (10:13→21:29)
[2017-10-15 10:14] LABS: DIFFERENTIAL COMMENT MANUAL DIFFERENTIAL; PLATELET ESTIMATE, MANUAL NORMAL (130-450,000) (NORMAL); PLATELET MORPHOLOGY NORMAL APPEARANCE (NORMAL)
[2017-10-15] MEDS: PROCHLORPERAZINE 10 MG/2 ML VIAL IVP PRN (11:58)
[2017-10-15] MEDS: SODIUM CHLORIDE FLUSH 0.9% 10 ML SYRINGE IVP SCH ×2 (11:59→21:31)
[2017-10-15] MEDS ORDERED: FUROSEMIDE 40 MG TABLET PO SCH (13:00)
[2017-10-15 15:05] LABS: ALBUMIN 3.1 g/dL (3.2-5.5); BILIRUBIN,DIRECT 0.1 mg/dL (0.1-0.5); BILIRUBIN,TOTAL 0.7 mg/dL (0.2-1.0); TOTAL PROTEIN 6.2 g/dL (6.7-8.2)
[2017-10-15] MEDS: hydrALAZINE 25 MG TABLET PO SCH ×3 (15:42→21:29)
[2017-10-15] MEDS: AZITHROMYCIN INJ 500 MG in SODIUM CHLORIDE 0.9% 250 ML IV SCH (16:00)
[2017-10-15] MEDS: APIXABAN 2.5 MG TABLET PO SCH ×2 (16:01→21:32)
[2017-10-15] MEDS: ACETAMINOPHEN 325 MG TABLET PO PRN (16:01)
[2017-10-15] MEDS ORDERED: DEXTROSE 50% ABBOJECT 25 GM/50 ML SYRINGE IVP ONE (16:36)
[2017-10-15] MEDS ORDERED: DEXTROSE 50% ABBOJECT 25 GM/50 ML SYRINGE ONE (16:40)
[2017-10-15] MEDS ORDERED: DEXTROSE 5% 1,000 ML IV SCH (17:00)
[2017-10-15] MEDS ORDERED: NS W/40 MEQ KCL 1,000 ML IV SCH (18:00)
[2017-10-15] MEDS ORDERED: SODIUM CHLORIDE 0.9% 1,000 ML IV SCH (19:00)
[2017-10-15] MEDS: SODIUM CHLORIDE 0.9% 1,000 ML IV SCH (19:15)
[2017-10-16 03:46] LABS: BILIRUBIN,URINE NEGATIVE (NEGATIVE); GLUCOSE, URINE (UA) NEGATIVE (NEGATIVE); KETONES,URINE (UA) NEGATIVE (NEGATIVE); LEUKOCYTE ESTERASE, URINE NEGATIVE (NEGATIVE); NITRITE,URINE POSITIVE (NEGATIVE); OCCULT BLOOD,URINE TRACE-LYSE (NEGATIVE); PROTEIN,URINE 100 mg/dL (NEGATIVE); UROBILINOGEN,URINE 0.2 (NORMAL) E.U./dL (NORMAL)
[2017-10-16 03:47] LABS: BACTERIA,URINE Many /HPF (None Seen); CLARITY,URINE CLEAR (CLEAR); RBC,URINE None Seen /HPF (0-5); SQUAMOUS EPITHELIAL CELL,UR RARE Squamous (<= Few)
[2017-10-16] MEDS: ACETAMINOPHEN 325 MG TABLET PO PRN ×2 (04:31→16:40)
[2017-10-16] MEDS: SODIUM CHLORIDE 0.9% 1,000 ML IV SCH (05:45)
[2017-10-16] MEDS: SODIUM CHLORIDE FLUSH 0.9% 10 ML SYRINGE IVP SCH ×3 (05:46→16:42)
[2017-10-16 05:53] LABS: BASOPHILS % (AUTO) 0.3 %; EOSINOPHILS % (AUTO) 0.1 %; LYMPHOCYTES # (AUTO) 0.9 10^3/uL (1.5-3.5); LYMPHOCYTES % (AUTO) 48.1 %; MEAN CORPUSCULAR HEMOGLOBIN 29.8 pg (27.0-31.0); MEAN CORPUSCULAR HGB CONC 33.3 g/dL (32.0-36.0); MEAN CORPUSCULAR VOLUME 89.4 fL (81.0-99.0); MEAN PLATELET VOLUME 7.5 fL (7.9-10.8); MONOCYTES # (AUTO) 0.1 10^3/uL (0.0-1.0); MONOCYTES % (AUTO) 3.9 %; NEUTROPHILS # (AUTO) 0.9 10^3/uL (1.5-6.6); NEUTROPHILS % (AUTO) 47.6 %; PLT - PLATELET COUNT 106 10^3/uL (130-450); RED BLOOD COUNT 2.32 10^6/uL (4.20-5.40); RED CELL DISTRIBUTION WIDTH 14.8 % (12.0-15.0)
[2017-10-16 05:58] LABS: HGB - HEMOGLOBIN 6.9 g/dL (12.0-16.0); WHITE BLOOD COUNT 1.9 x10^3/uL (4.8-10.8)
[2017-10-16 06:14] LABS: ALBUMIN 2.6 g/dL (3.2-5.5); BILIRUBIN,TOTAL 0.9 mg/dL (0.2-1.0); CALCIUM 7.9 mg/dL (8.5-10.3); CREATININE 2.9 mg/dL (0.4-1.0); TOTAL PROTEIN 5.3 g/dL (6.7-8.2)
[2017-10-16 07:39] LABS: DIFFERENTIAL COMMENT MANUAL=AUTO DIFF; PLATELET ESTIMATE, MANUAL DECREASED (<130,000) (NORMAL); PLATELET MORPHOLOGY 1+ LARGE PLATELETS (NORMAL)
[2017-10-16] MEDS ORDERED: DEXTROSE GEL 37.5 GM TUBE PO ONE (07:47)
[2017-10-16] MEDS: INSULIN ASPART 300 UNIT/3 ML PEN SUBQ SCH ×4 (07:57→21:03)
[2017-10-16] MEDS: POLYETHYLENE GLYCOL 3350 17 GM PACKET PO SCH (07:59)
[2017-10-16] MEDS: hydrALAZINE 25 MG TABLET PO SCH ×2 (07:59→13:18)
[2017-10-16] MEDS: APIXABAN 2.5 MG TABLET PO SCH (08:55)
[2017-10-16] MEDS: FAMOTIDINE 20 MG TABLET PO SCH (08:55)
[2017-10-16] MEDS: AZITHROMYCIN INJ 500 MG in SODIUM CHLORIDE 0.9% 250 ML IV SCH (08:56)
[2017-10-16] MEDS ORDERED: ACETAMINOPHEN 325 MG TABLET PO ONE (11:11)
[2017-10-16] MEDS ORDERED: FUROSEMIDE 20 MG/2 ML VIAL IVP PRN (11:11)
[2017-10-16] MEDS ORDERED: diphenhydrAMINE 25 MG CAPSULE PO ONE (11:13)
--- NOTE | 2017-10-16 11:34 | PROVIDER PROGRESS NOTE ---
Subjective - Prog Note Date Prog Note Date: 10/16/17 Prog Note Time: 11:34 - Subjective Pt reports feeling: No change Subjective: Sierra is much more alert today and has improved mentation. She denies chest pain , but states that her chronic low back pain is bothering her. She denies further episodes of nausea, but continues to have a poor appetite. She has family, or friend Harriet at her bedside. Current Medications - Current Medications Current Medications: Active Medications Acetaminophen (Tylenol) 650 mg PO Q4HR PRN PRN Reason: Pain 1 to 4 Last Admin: 10/16/17 16:40 Dose: 650 mg Amoxicillin (Amoxil) 250 mg PO Q6HR BULL Famotidine (Pepcid) 20 mg PO DAILY [facility] Last Admin: 10/16/17 08:55 Dose: 20 mg Furosemide (Lasix Inj 20mg Vial) 20 mg IVP ONCE PRN PRN Reason: Between units Stop: 10/17/17 11:10 Last Admin: 10/16/17 16:41 Dose: 20 mg Guaifenesin (Robitussin Dm) 10 ml PO Q6HR PRN PRN Reason: Cough Azithromycin 500 mg/ Sodium (Chloride) 250 mls @ 250 mls/hr IV DAILY [facility] Last Infusion: 10/16/17 09:56 Dose: Infused Sodium Chloride (Normal Saline 0.9%) 1,000 mls @ 100 mls/hr IV .Q10H [facility] Last Admin: 10/16/17 05:45 Dose: Not Given Sodium Chloride (Normal Saline 0.9%) 1,000 mls @ 0 mls/hr IV .Q0M BULL PRN Reason: TKO Insulin Aspart (Novolog) 1 - 9 unit SUBQ 0800,1200,1700,2100 BULL PRN Reason: Protocol Last Admin: 10/16/17 17:26 Dose: 1 unit Metoprolol Succinate (Toprol Xl) 12.5 mg PO DAILY [facility] Polyethylene Glycol (Miralax) 17 gm PO DAILY [facility] Last Admin: 10/16/17 07:59 Dose: Not Given Prochlorperazine Edisylate (Compazine Inj) 10 mg IVP Q6HR PRN PRN Reason: Nausea / Vomiting Last Admin: 10/15/17 11:58 Dose: 10 mg Sodium Chloride (Normal Saline Flush 0.9%) 10 ml IVP PRN PRN PRN Reason: NEEDED PER PROVIDER ORDERS Sodium Chloride (Normal Saline Flush 0.9%) 10 ml IVP Q8HR BULL Last Admin: 10/16/17 16:42 Dose: 10 ml Insulin Glargine,Hum.rec.anlog [Lantus Solostar] 20 units SUBQ QPM 07/06/14 Simvastatin [Zocor] 20 mg PO QPM 07/06/14 Insulin Glulisine [Apidra] 6 unit SUBQ BIDWM 01/20/16 Doxazosin [Cardura] 4 mg PO QPM 10/15/17 Furosemide [Lasix] 40 mg PO DAILY 10/15/17 Insulin Glulisine [Apidra Solostar] 8 unit SUBQ 1200 10/15/17 Lisinopril [Lisinopril] 20 mg PO BID 10/15/17 Nitroglycerin 0.1 mg/Hr Patch [Nitro-Dur] 1 each TOP DAILY 10/15/17 amLODIPine [Norvasc] 5 mg PO QPM 10/15/17 hydrALAZINE [Apresoline] 25 mg PO QID 10/15/17 hydroCHLOROthiazide [Hydrodiuril] 25 mg PO DAILY 10/15/17 Objective - Vital Signs/Intake & Output Reviewed Vital Signs: Yes Vital Signs: Vital Signs x48h Temp Pulse Resp BP Pulse Ox 10/16/17 07:33 36.4 C L 81 18 96/36 L 98 10/16/17 05:30 36.9 C 10/16/17 04:07 39.3 C H 97 20 112/69 95 Intake & Output: Intake & Output 10/13/17 10/14/17 10/15/17 10/16/17 23:59 23:59 23:59 23:59 Intake Total 2223.3 1690 Output Total 150 300 Balance 2073.3 1390 - Objective General Appearance: positive: No acute distress, Alert, Lethargic Eyes Bilateral: positive: Normal inspection Eyes: OU Conjunctivae pale ENT: positive: ENT inspection nml, Pharynx nml, Dry mucous membranes Neck: positive: Nml inspection, Thyroid nml, No JVD, Stiff neck Respiratory: positive: Chest non-tender, No respiratory distress, Wheezes, Other (crackles) Cardiovascular: positive: No gallop, Irregularly irregular, Systolic murmur, Decreased pulse(s) Peripheral Pulses: 1+ Radial (R), 1+ Radial (L) Abdomen: positive: Non-tender, No organomegaly, Nml bowel sounds, No distention Back: positive: Nml inspection Skin: positive: No rash, Warm, Dry, Diaphoresis, Pallor Extremities: positive: Non-tender, Full ROM, Nml appearance, Pedal edema Neurologic/Psychiatric: positive: Disoriented to time, Weakness, Sensory loss, Slurred/abnml speech, Depressed mood/affect, Other (CACHIL DEHE) Reflexes: Bicep (R): 1+, Bicep (L): 1+ - Lab Results Fish Bones: 10/16/17 05:23 10/16/17 05:23 Other Labs: Lab Results x24hrs 10/16/17 10/16/17 10/16/17 Range/Units 05:23 05:23 05:23 WBC (4.8-10.8) x10^3/uL RBC (4.20-5.40) 10^6/uL Hgb (12.0-16.0) g/dL Hct (37.0-47.0) % MCV (81.0-99.0) fL MCH (27.0-31.0) pg MCHC (32.0-36.0) g/dL RDW (12.0-15.0) % Plt Count (130-450) 10^3/uL MPV (7.9-10.8) fL Neut # (1.5-6.6) 10^3/uL Lymph # (1.5-3.5) 10^3/uL Wright # (0.0-1.0) 10^3/uL Eos # (0.0-0.7) 10^3/uL Baso # (0.0-0.1) 10^3/uL Absolute Nucleated RBC x10^3/uL Total Counted Band Neuts % (Manual) Abnorm Lymph % (Manual) Nucleated RBC % /100WBC Neutrophils # (Manual) Lymphocytes # (Manual) Monocytes # (Manual) Eosinophils # (Manual) Basophils # (Manual) Differential Comment Manual Slide Review Platelet Estimate (NORMAL) Platelet Morphology (NORMAL) RBC Morph Micro Appear (NORMAL) Sodium 130 L (135-145) mmol/L Potassium 3.6 (3.5-5.0) mmol/L Chloride 99 L (101-111) mmol/L Carbon Dioxide 22 (21-32) mmol/L Anion Gap 9.0 (6-13) BUN 58 H (6-20) mg/dL Creatinine 2.9 H (0.4-1.0) mg/dL Estimated GFR (MDRD) 15 L (>89) Glucose 90 (70-100) mg/dL Calcium 7.9 L (8.5-10.3) mg/dL Total Bilirubin 0.9 (0.2-1.0) mg/dL Direct Bilirubin (0.1-0.5) mg/dL AST 61 H (10-42) IU/L ALT 21 (10-60) IU/L Alkaline Phosphatase 37 L (42-121) IU/L Troponin I 0.52 H* (<0.49) ng/mL B-Natriuretic Peptide 1452 H (5-100) pg/mL Total Protein 5.3 L (6.7-8.2) g/dL Albumin 2.6 L (3.2-5.5) g/dL Globulin 2.7 (2.1-4.2) g/dL Albumin/Globulin Ratio 1.0 (1.0-2.2) Urine Color Urine Clarity (CLEAR) Urine pH (5.0-7.5) PH Ur Specific [place] (1.002-1.030) Urine Protein (NEGATIVE) mg/dL Urine Glucose (UA) (NEGATIVE) mg/dL Urine Ketones (NEGATIVE) mg/dL Urine Occult Blood (NEGATIVE) Urine Nitrite (NEGATIVE) Urine Bilirubin (NEGATIVE) Urine Urobilinogen (NORMAL) E.U./dL Ur Leukocyte Esterase (NEGATIVE) Urine RBC (0-5) /HPF Urine WBC (0-5) /HPF Ur Squamous Epith Cells (<= Few) Urine Bacteria (None Seen) /HPF Ur Microscopic Review Urine Culture Comments 10/16/17 10/16/17 10/15/17 Range/Units 05:23 00:54 14:40 WBC 1.9 L* (4.8-10.8) x10^3/uL RBC 2.32 L (4.20-5.40) 10^6/uL Hgb 6.9 L* (12.0-16.0) g/dL Hct 20.7 L (37.0-47.0) % MCV 89.4 (81.0-99.0) fL MCH 29.8 (27.0-31.0) pg MCHC 33.3 (32.0-36.0) g/dL RDW 14.8 (12.0-15.0) % Plt Count 106 L (130-450) 10^3/uL MPV 7.5 L (7.9-10.8) fL Neut # 0.9 L (1.5-6.6) 10^3/uL Lymph # 0.9 L (1.5-3.5) 10^3/uL Wright # 0.1 (0.0-1.0) 10^3/uL Eos # 0.0 (0.0-0.7) 10^3/uL Baso # 0.0 (0.0-0.1) 10^3/uL Absolute Nucleated RBC 0.00 x10^3/uL Total Counted [employer] O[employer]ATOR Band Neuts % (Manual) Not Reportable Abnorm Lymph % (Manual) Not Reportable Nucleated RBC % 0.1 /100WBC Neutrophils # (Manual) Not Reportable Lymphocytes # (Manual) Not Reportable Monocytes # (Manual) Not Reportable Eosinophils # (Manual) Not Reportable Basophils # (Manual) Not Reportable Differential Comment MANUAL=AUTO DIFF Manual Slide Review Indicated Platelet Estimate DECREASED (<130,000) (NORMAL) Platelet Morphology 1+ LARGE PLATELETS (NORMAL) RBC Morph Micro Appear 1+ BASO STIPPLING (NORMAL) Sodium (135-145) mmol/L Potassium (3.5-5.0) mmol/L Chloride (101-111) mmol/L Carbon Dioxide (21-32) mmol/L Anion Gap (6-13) BUN (6-20) mg/dL Creatinine (0.4-1.0) mg/dL Estimated GFR (MDRD) (>89) Glucose (70-100) mg/dL Calcium (8.5-10.3) mg/dL Total Bilirubin 0.7 (0.2-1.0) mg/dL Direct Bilirubin 0.1 (0.1-0.5) mg/dL AST 47 H (10-42) IU/L ALT 20 (10-60) IU/L Alkaline Phosphatase 47 (42-121) IU/L Troponin I (<0.49) ng/mL B-Natriuretic Peptide (5-100) pg/mL Total Protein 6.2 L (6.7-8.2) g/dL Albumin 3.1 L (3.2-5.5) g/dL Globulin 3.1 (2.1-4.2) g/dL Albumin/Globulin Ratio (1.0-2.2) Urine Color YELLOW Urine Clarity CLEAR (CLEAR) Urine pH 5.0 (5.0-7.5) PH Ur Specific [place] 1.015 (1.002-1.030) Urine Protein 100 H (NEGATIVE) mg/dL Urine Glucose (UA) NEGATIVE (NEGATIVE) mg/dL Urine Ketones NEGATIVE (NEGATIVE) mg/dL Urine Occult Blood TRACE-LYSE (NEGATIVE) Urine Nitrite POSITIVE H (NEGATIVE) Urine Bilirubin NEGATIVE (NEGATIVE) Urine Urobilinogen 0.2 (NORMAL) (NORMAL) E.U./dL Ur Leukocyte Esterase NEGATIVE (NEGATIVE) Urine RBC None Seen (0-5) /HPF Urine WBC 0-3 (0-5) /HPF Ur Squamous Epith Cells RARE Squamous (<= Few) Urine Bacteria Many H (None Seen) /HPF Ur Microscopic Review INDICATED Urine Culture Comments INDICATED - Diagnostic Imaging Diagnostic Imaging Results: positive: Final report reviewed Assessment/Plan - Problem List (1) Diabetes mellitus type 2 in nonobese Impression: Patient is a known diabetic and is insulin dependent on daily Lantus. Patient has had a few low early AM sugars, so Lantus will now be on hold. Plan: Continue ACHS blood glucose monitoring and consider resuming Lantus in the next few days. (2) CHF (congestive heart failure) Impression: Patient last had an echocardiogram in May 2017. 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 Patient remains on medical management including a diuretic and PAOLA/ARB. Repeat echocardiogram was completed and shows no regional wall abnormalities. I suspect that around the time of this echocardiogram is when the cardiac event may have occurred. On AM labs, patient was found to have an elevated troponin of 0.56. Both Eliquis and beta blockers are on hold due to recommendations from CHF out patient MD, Dr. Cabrera Hernandez. Plan: Maintain fluid balance in light of PRBCs today, may require additional diuresis. Qualifiers: Congestive heart failure type: combined (3) Community acquired pneumonia Impression: Upon admission, a chest x-ray did not indicate pneumonia possibly due to patient being low on fluids. An abdominal CT was obtained due to nausea and confirms pneumonia. Patient had a temp max today of 39.3, noted on 10/16/17 ~ 0400. Blood cultures remain; no growth to date. Plan: Azithromycin IV for treatment of CAP. Attempt to obtain sputum cultures. Await blood culture results. Qualifiers: Lung location: lower lobe of lung (4) Intractable nausea and vomiting Impression: Upon transport to the nursing floor patient was noted to be dry heaving, with ongoing nausea. Per chart review, patient was having this in the middle of the night and this is also her primary complaint to me at the time of admission. Patient denies this today and this is suspected to be resolved. Plan: Treat with anti-emetics and gentle IVFs. (5) NSTEMI (non-ST elevated myocardial infarction) Impression: Patient had an scantly elevated troponin on admission, of 0.06, that increased to 0.10, and this AM was "a rule in" [place] at 0.56. Cardiology, Dr. Woods was contacted who spoke with patient's primary CHF doctor, Dr. Cabrera Hernandez. A consensus was to medically manage, add a small dose of metoprolol. I mentioned to Dr. Woods that patient is now anemic, and is suspected to be having a GI bleed, so Eliquis was placed on hold. He informed me that he would put a note in the chart and update Dr. Hernandez. The next intervention may be an outpatient stress test, although she has a high pre-test probability of being positive. This would not yield any beneficial results since patient is not a candidate for angiograms given the nephrotoxic possibilities, and the likelihood of the patient progressing to a dialysis dependent state. Patient has stage 4 CKD. Plan: I will start metoprolol at 12.5mg daily and continue telemetry monitoring with daily troponins. (6) Anemia due to blood loss, acute Impression: Patient was noted to have a hemoglobin of 11.1 one year ago. Upon admission to the ED, her hemoglobin was decreased at 8.5, and this AM it was 6.9. Eliquis was stopped and a call to Dr. Hebert was made for a possible GI work up. Plan: Give 1-2 PRBCs, diuresis, and plan to call Dr. Hebert back when patient is stabilized. (7) UTI (urinary tract infection) Impression: A UA was obtained and shows +UTI, cultures are pending. Patient denies dysuria. Plan: Start PO amoxicillin and await cultures.
[2017-10-16] MEDS ORDERED: SODIUM CHLORIDE 0.9% 1,000 ML IV SCH (12:00)
[2017-10-16] MEDS: guaiFENesin/DEXTROMETHORPHAN 10 ML UDC PO PRN (18:57)
[2017-10-16] MEDS: AMOXICILLIN 250 MG CAPSULE PO SCH (18:57)
[2017-10-16] MEDS: METOPROLOL SUCCINATE 25 MG TABLET PO SCH (18:57)
[2017-10-16 22:33] LABS: HGB - HEMOGLOBIN 9.4 g/dL (12.0-16.0)
[2017-10-17] MEDS: guaiFENesin/DEXTROMETHORPHAN 10 ML UDC PO PRN ×4 (00:58→20:07)
[2017-10-17] MEDS: AMOXICILLIN 250 MG CAPSULE PO SCH ×2 (00:58→06:55)
[2017-10-17] MEDS: ACETAMINOPHEN 325 MG TABLET PO PRN ×2 (05:13→20:07)
[2017-10-17 05:34] LABS: HGB - HEMOGLOBIN 10.1 g/dL (12.0-16.0); MONOCYTES # (AUTO) 0.2 10^3/uL (0.0-1.0)
[2017-10-17 05:40] LABS: EOSINOPHILS % (AUTO) 0.2 %; NEUTROPHILS # (AUTO) 7.5 10^3/uL (1.5-6.6); WHITE BLOOD COUNT 9.5 x10^3/uL (4.8-10.8)
[2017-10-17 05:44] LABS: BASOPHILS % (AUTO) 0.2 %; LYMPHOCYTES # (AUTO) 1.8 10^3/uL (1.5-3.5); LYMPHOCYTES % (AUTO) 18.7 %; MEAN CORPUSCULAR HEMOGLOBIN 29.5 pg (27.0-31.0); MEAN CORPUSCULAR HGB CONC 33.8 g/dL (32.0-36.0); MEAN CORPUSCULAR VOLUME 87.3 fL (81.0-99.0); MONOCYTES % (AUTO) 2.5 %; NEUTROPHILS % (AUTO) 78.4 %; PLT - PLATELET COUNT 108 10^3/uL (130-450); RED BLOOD COUNT 3.43 10^6/uL (4.20-5.40); RED CELL DISTRIBUTION WIDTH 15.4 % (12.0-15.0)
[2017-10-17 05:49] LABS: ALBUMIN 2.7 g/dL (3.2-5.5); ALBUMIN/GLOBULIN RATIO 0.8 (1.0-2.2); CALCIUM 8.4 mg/dL (8.5-10.3); CREATININE 3.1 mg/dL (0.4-1.0); TOTAL PROTEIN 6.1 g/dL (6.7-8.2)
[2017-10-17 06:19] LABS: PLATELET ESTIMATE, MANUAL DECREASED (<130,000) (NORMAL); PLATELET MORPHOLOGY NORMAL APPEARANCE (NORMAL); RBC MORPHOLOGY (MULTIPLE) 1+ OVALOCYTES (NORMAL)
[2017-10-17] MEDS: SODIUM CHLORIDE FLUSH 0.9% 10 ML SYRINGE IVP SCH ×3 (06:55→17:11)
[2017-10-17] MEDS: INSULIN ASPART 300 UNIT/3 ML PEN SUBQ SCH ×4 (08:13→21:32)
[2017-10-17] MEDS: POLYETHYLENE GLYCOL 3350 17 GM PACKET PO SCH (08:13)
[2017-10-17] MEDS: METOPROLOL SUCCINATE 25 MG TABLET PO SCH (09:02)
[2017-10-17] MEDS: FAMOTIDINE 20 MG TABLET PO SCH (09:02)
[2017-10-17] MEDS: cefTRIAXone 1 GM in SODIUM CHLORIDE 0.9% MINIBAG 100 ML IV SCH ×2 (09:23→09:36)
[2017-10-17] MEDS: AZITHROMYCIN INJ 500 MG in SODIUM CHLORIDE 0.9% 250 ML IV SCH (10:11)
[2017-10-17] MEDS: PROCHLORPERAZINE 10 MG/2 ML VIAL IVP PRN (11:00)
--- NOTE | 2017-10-17 11:39 | PROVIDER PROGRESS NOTE ---
Subjective - Prog Note Date Prog Note Date: 10/17/17 Prog Note Time: 08:30 - Subjective Pt reports feeling: Worse Subjective: Patient sitting bolt upright in bed, she has tray there to eat, she reports feeling "worn out, exhausted." She reports feeling mildly SOB but more so tired. She reports +productive cough, she denies fever or chills overnight. She reports poor appetite and sitting this way is hurting her back. She would like to get up today, RN reports did so w/ 1 p assist yesterday. Current Medications - Current Medications Current Medications: Active Medications Acetaminophen (Tylenol) 650 mg PO Q4HR PRN PRN Reason: Pain 1 to 4 Last Admin: 10/17/17 05:13 Dose: 650 mg Famotidine (Pepcid) 20 mg PO DAILY [facility] Last Admin: 10/17/17 09:02 Dose: 20 mg Guaifenesin (Robitussin Dm) 10 ml PO Q6HR PRN PRN Reason: Cough Last Admin: 10/17/17 06:51 Dose: 10 ml Azithromycin 500 mg/ Sodium (Chloride) 250 mls @ 250 mls/hr IV DAILY [facility] Last Admin: 10/17/17 10:11 Dose: 250 mls/hr Sodium Chloride (Normal Saline 0.9%) 1,000 mls @ 0 mls/hr IV .Q0M BULL PRN Reason: TKO Ceftriaxone Sodium 1 gm/ (Sodium Chloride) 100 mls @ 200 mls/hr IV DAILY [facility] Last Infusion: 10/17/17 09:53 Dose: Infused Insulin Aspart (Novolog) 1 - 9 unit SUBQ 0800,1200,1700,2100 BULL PRN Reason: Protocol Last Admin: 10/17/17 08:13 Dose: Not Given Metoprolol Succinate (Toprol Xl) 12.5 mg PO DAILY [facility] Last Admin: 10/17/17 09:02 Dose: 12.5 mg Polyethylene Glycol (Miralax) 17 gm PO DAILY [facility] Last Admin: 10/17/17 08:13 Dose: Not Given Prochlorperazine Edisylate (Compazine Inj) 10 mg IVP Q6HR PRN PRN Reason: Nausea / Vomiting Last Admin: 10/17/17 11:00 Dose: 10 mg Sodium Chloride (Normal Saline Flush 0.9%) 10 ml IVP PRN PRN PRN Reason: NEEDED PER PROVIDER ORDERS Sodium Chloride (Normal Saline Flush 0.9%) 10 ml IVP Q8HR BULL Last Admin: 10/17/17 06:55 Dose: 10 ml Insulin Glargine,Hum.rec.anlog [Lantus Solostar] 20 units SUBQ QPM 07/06/14 Simvastatin [Zocor] 20 mg PO QPM 07/06/14 Insulin Glulisine [Apidra] 6 unit SUBQ BIDWM 01/20/16 Doxazosin [Cardura] 4 mg PO QPM 10/15/17 Furosemide [Lasix] 40 mg PO DAILY 10/15/17 Insulin Glulisine [Apidra Solostar] 8 unit SUBQ 1200 10/15/17 Lisinopril [Lisinopril] 20 mg PO BID 10/15/17 Nitroglycerin 0.1 mg/Hr Patch [Nitro-Dur] 1 each TOP DAILY 10/15/17 amLODIPine [Norvasc] 5 mg PO QPM 10/15/17 hydrALAZINE [Apresoline] 25 mg PO QID 10/15/17 hydroCHLOROthiazide [Hydrodiuril] 25 mg PO DAILY 10/15/17 Objective - Vital Signs/Intake & Output Reviewed Vital Signs: Yes Vital Signs: Vital Signs x48h Temp Pulse Resp BP Pulse Ox 10/17/17 08:36 36.7 C 69 16 127/49 L 97 10/17/17 05:00 36.6 C 84 20 150/54 H 93 Intake & Output: Intake & Output 10/14/17 10/15/17 10/16/17 10/17/17 23:59 23:59 23:59 23:59 Intake Total 2223.3 3410 600 Output Total 150 300 200 Balance 2073.3 3110 400 - Objective General Appearance: positive: Alert, Mild distress Eyes Bilateral: positive: PERRL, No scleral icterus ENT: positive: Pharynx nml Neck: positive: Nml inspection, No JVD Respiratory: positive: Chest non-tender, Rhonchi (bibasilar posteriorly, mild icr WOB, on 1L NC) Cardiovascular: positive: Regular rate & rhythm Peripheral Pulses: 1+ Dorsalis pedis (R), 1+ Dorsalis pedis (L), 2+ Radial (R), 2+ Radial (L) Abdomen: positive: Non-tender, Nml bowel sounds Skin: positive: Color nml, No rash, Warm, Dry Extremities: positive: Full ROM, Nml appearance. negative: Pedal edema, Calf tenderness Neurologic/Psychiatric: positive: Oriented x3, Motor nml, Sensation nml, Mood/ affect nml, Weakness (generalized) - Lab Results Fish Bones: 10/17/17 05:23 10/17/17 05:23 Other Labs: Lab Results x24hrs 10/17/17 10/17/17 10/17/17 Range/Units 11:27 07:55 05:23 WBC 9.5 (4.8-10.8) x10^3/uL RBC 3.43 L (4.20-5.40) 10^6/uL Hgb 10.1 L (12.0-16.0) g/dL Hct 30.0 L (37.0-47.0) % MCV 87.3 (81.0-99.0) fL MCH 29.5 (27.0-31.0) pg MCHC 33.8 (32.0-36.0) g/dL RDW 15.4 H (12.0-15.0) % Plt Count 108 L (130-450) 10^3/uL MPV 8.0 (7.9-10.8) fL Neut # 7.5 H (1.5-6.6) 10^3/uL Lymph # 1.8 (1.5-3.5) 10^3/uL [place] # 0.2 (0.0-1.0) 10^3/uL Eos # 0.0 (0.0-0.7) 10^3/uL Baso # 0.0 (0.0-0.1) 10^3/uL Absolute Nucleated RBC 0.01 x10^3/uL Nucleated RBC % 0.1 /100WBC Manual Slide Review Indicated Platelet Estimate DECREASED (<130,000) (NORMAL) Platelet Morphology NORMAL APPEARANCE (NORMAL) RBC Morph Micro Appear 1+ OVALOCYTES (NORMAL) Sodium (135-145) mmol/L Potassium (3.5-5.0) mmol/L Chloride (101-111) mmol/L Carbon Dioxide (21-32) mmol/L Anion Gap (6-13) BUN (6-20) mg/dL Creatinine (0.4-1.0) mg/dL Estimated GFR (MDRD) (>89) Glucose (70-100) mg/dL POC Whole Bld Glucose 164 H 87 (70 - 100) mg/dL Calcium (8.5-10.3) mg/dL Total Bilirubin (0.2-1.0) mg/dL AST (10-42) IU/L ALT (10-60) IU/L Alkaline Phosphatase (42-121) IU/L B-Natriuretic Peptide (5-100) pg/mL Total Protein (6.7-8.2) g/dL Albumin (3.2-5.5) g/dL Globulin (2.1-4.2) g/dL Albumin/Globulin Ratio (1.0-2.2) Blood Type Blood Type Recheck Antibody Screen Crossmatch IS Only 10/17/17 10/17/17 10/16/17 Range/Units 05:23 05:23 22:22 WBC (4.8-10.8) x10^3/uL RBC (4.20-5.40) 10^6/uL Hgb 9.4 L (12.0-16.0) g/dL Hct 27.8 L (37.0-47.0) % MCV (81.0-99.0) fL MCH (27.0-31.0) pg MCHC (32.0-36.0) g/dL RDW (12.0-15.0) % Plt Count (130-450) 10^3/uL MPV (7.9-10.8) fL Neut # (1.5-6.6) 10^3/uL Lymph # (1.5-3.5) 10^3/uL [place] # (0.0-1.0) 10^3/uL Eos # (0.0-0.7) 10^3/uL Baso # (0.0-0.1) 10^3/uL Absolute Nucleated RBC x10^3/uL Nucleated RBC % /100WBC Manual Slide Review Platelet Estimate (NORMAL) Platelet Morphology (NORMAL) RBC Morph Micro Appear (NORMAL) Sodium 132 L (135-145) mmol/L Potassium 3.8 (3.5-5.0) mmol/L Chloride 97 L (101-111) mmol/L Carbon Dioxide 23 (21-32) mmol/L Anion Gap 12.0 (6-13) BUN 69 H (6-20) mg/dL Creatinine 3.1 H (0.4-1.0) mg/dL Estimated GFR (MDRD) 14 L (>89) Glucose 83 (70-100) mg/dL POC Whole Bld Glucose (70 - 100) mg/dL Calcium 8.4 L (8.5-10.3) mg/dL Total Bilirubin 1.0 (0.2-1.0) mg/dL AST 76 H (10-42) IU/L ALT 23 (10-60) IU/L Alkaline Phosphatase 48 (42-121) IU/L B-Natriuretic Peptide 696 H (5-100) pg/mL Total Protein 6.1 L (6.7-8.2) g/dL Albumin 2.7 L (3.2-5.5) g/dL Globulin 3.4 (2.1-4.2) g/dL Albumin/Globulin Ratio 0.8 L (1.0-2.2) Blood Type Blood Type Recheck Antibody Screen Crossmatch IS Only 10/16/17 10/16/17 10/16/17 Range/Units 20:27 16:47 11:56 WBC (4.8-10.8) x10^3/uL RBC (4.20-5.40) 10^6/uL Hgb (12.0-16.0) g/dL Hct (37.0-47.0) % MCV (81.0-99.0) fL MCH (27.0-31.0) pg MCHC (32.0-36.0) g/dL RDW (12.0-15.0) % Plt Count (130-450) 10^3/uL MPV (7.9-10.8) fL Neut # (1.5-6.6) 10^3/uL Lymph # (1.5-3.5) 10^3/uL [place] # (0.0-1.0) 10^3/uL Eos # (0.0-0.7) 10^3/uL Baso # (0.0-0.1) 10^3/uL Absolute Nucleated RBC x10^3/uL Nucleated RBC % /100WBC Manual Slide Review Platelet Estimate (NORMAL) Platelet Morphology (NORMAL) RBC Morph Micro Appear (NORMAL) Sodium (135-145) mmol/L Potassium (3.5-5.0) mmol/L Chloride (101-111) mmol/L Carbon Dioxide (21-32) mmol/L Anion Gap (6-13) BUN (6-20) mg/dL Creatinine (0.4-1.0) mg/dL Estimated GFR (MDRD) (>89) Glucose (70-100) mg/dL POC Whole Bld Glucose 200 H 154 H 113 H (70 - 100) mg/dL Calcium (8.5-10.3) mg/dL Total Bilirubin (0.2-1.0) mg/dL AST (10-42) IU/L ALT (10-60) IU/L Alkaline Phosphatase (42-121) IU/L B-Natriuretic Peptide (5-100) pg/mL Total Protein (6.7-8.2) g/dL Albumin (3.2-5.5) g/dL Globulin (2.1-4.2) g/dL Albumin/Globulin Ratio (1.0-2.2) Blood Type Blood Type Recheck Antibody Screen Crossmatch IS Only 10/16/17 10/16/17 10/16/17 Range/Units 11:39 08:44 07:46 WBC (4.8-10.8) x10^3/uL RBC (4.20-5.40) 10^6/uL Hgb (12.0-16.0) g/dL Hct (37.0-47.0) % MCV (81.0-99.0) fL MCH (27.0-31.0) pg MCHC (32.0-36.0) g/dL RDW (12.0-15.0) % Plt Count (130-450) 10^3/uL MPV (7.9-10.8) fL Neut # (1.5-6.6) 10^3/uL Lymph # (1.5-3.5) 10^3/uL [place] # (0.0-1.0) 10^3/uL Eos # (0.0-0.7) 10^3/uL Baso # (0.0-0.1) 10^3/uL Absolute Nucleated RBC x10^3/uL Nucleated RBC % /100WBC Manual Slide Review Platelet Estimate (NORMAL) Platelet Morphology (NORMAL) RBC Morph Micro Appear (NORMAL) Sodium (135-145) mmol/L Potassium (3.5-5.0) mmol/L Chloride (101-111) mmol/L Carbon Dioxide (21-32) mmol/L Anion Gap (6-13) BUN (6-20) mg/dL Creatinine (0.4-1.0) mg/dL Estimated GFR (MDRD) (>89) Glucose (70-100) mg/dL POC Whole Bld Glucose 150 H 62 L (70 - 100) mg/dL Calcium (8.5-10.3) mg/dL Total Bilirubin (0.2-1.0) mg/dL AST (10-42) IU/L ALT (10-60) IU/L Alkaline Phosphatase (42-121) IU/L B-Natriuretic Peptide (5-100) pg/mL Total Protein (6.7-8.2) g/dL Albumin (3.2-5.5) g/dL Globulin (2.1-4.2) g/dL Albumin/Globulin Ratio (1.0-2.2) Blood Type O POSITIVE Blood Type Recheck Antibody Screen NEGATIVE Crossmatch IS Only See Detail 10/16/17 10/16/17 10/16/17 Range/Units 05:23 04:45 03:53 WBC (4.8-10.8) x10^3/uL RBC (4.20-5.40) 10^6/uL Hgb (12.0-16.0) g/dL Hct (37.0-47.0) % MCV (81.0-99.0) fL MCH (27.0-31.0) pg MCHC (32.0-36.0) g/dL RDW (12.0-15.0) % Plt Count (130-450) 10^3/uL MPV (7.9-10.8) fL Neut # (1.5-6.6) 10^3/uL Lymph # (1.5-3.5) 10^3/uL [place] # (0.0-1.0) 10^3/uL Eos # (0.0-0.7) 10^3/uL Baso # (0.0-0.1) 10^3/uL Absolute Nucleated RBC x10^3/uL Nucleated RBC % /100WBC Manual Slide Review Platelet Estimate (NORMAL) Platelet Morphology (NORMAL) RBC Morph Micro Appear (NORMAL) Sodium (135-145) mmol/L Potassium (3.5-5.0) mmol/L Chloride (101-111) mmol/L Carbon Dioxide (21-32) mmol/L Anion Gap (6-13) BUN (6-20) mg/dL Creatinine (0.4-1.0) mg/dL Estimated GFR (MDRD) (>89) Glucose (70-100) mg/dL POC Whole Bld Glucose 100 82 (70 - 100) mg/dL Calcium (8.5-10.3) mg/dL Total Bilirubin (0.2-1.0) mg/dL AST (10-42) IU/L ALT (10-60) IU/L Alkaline Phosphatase (42-121) IU/L B-Natriuretic Peptide (5-100) pg/mL Total Protein (6.7-8.2) g/dL Albumin (3.2-5.5) g/dL Globulin (2.1-4.2) g/dL Albumin/Globulin Ratio (1.0-2.2) Blood Type Blood Type Recheck O POSITIVE Antibody Screen Crossmatch IS Only 10/16/17 10/16/17 10/15/17 Range/Units 00:56 00:13 20:59 WBC (4.8-10.8) x10^3/uL RBC (4.20-5.40) 10^6/uL Hgb (12.0-16.0) g/dL Hct (37.0-47.0) % MCV (81.0-99.0) fL MCH (27.0-31.0) pg MCHC (32.0-36.0) g/dL RDW (12.0-15.0) % Plt Count (130-450) 10^3/uL MPV (7.9-10.8) fL Neut # (1.5-6.6) 10^3/uL Lymph # (1.5-3.5) 10^3/uL [place] # (0.0-1.0) 10^3/uL Eos # (0.0-0.7) 10^3/uL Baso # (0.0-0.1) 10^3/uL Absolute Nucleated RBC x10^3/uL Nucleated RBC % /100WBC Manual Slide Review Platelet Estimate (NORMAL) Platelet Morphology (NORMAL) RBC Morph Micro Appear (NORMAL) Sodium (135-145) mmol/L Potassium (3.5-5.0) mmol/L Chloride (101-111) mmol/L Carbon Dioxide (21-32) mmol/L Anion Gap (6-13) BUN (6-20) mg/dL Creatinine (0.4-1.0) mg/dL Estimated GFR (MDRD) (>89) Glucose (70-100) mg/dL POC Whole Bld Glucose 107 H 76 182 H (70 - 100) mg/dL Calcium (8.5-10.3) mg/dL Total Bilirubin (0.2-1.0) mg/dL AST (10-42) IU/L ALT (10-60) IU/L Alkaline Phosphatase (42-121) IU/L B-Natriuretic Peptide (5-100) pg/mL Total Protein (6.7-8.2) g/dL Albumin (3.2-5.5) g/dL Globulin (2.1-4.2) g/dL Albumin/Globulin Ratio (1.0-2.2) Blood Type Blood Type Recheck Antibody Screen Crossmatch IS Only 10/15/17 10/15/17 10/15/17 Range/Units 17:25 16:48 16:46 WBC (4.8-10.8) x10^3/uL RBC (4.20-5.40) 10^6/uL Hgb (12.0-16.0) g/dL Hct (37.0-47.0) % MCV (81.0-99.0) fL MCH (27.0-31.0) pg MCHC (32.0-36.0) g/dL RDW (12.0-15.0) % Plt Count (130-450) 10^3/uL MPV (7.9-10.8) fL Neut # (1.5-6.6) 10^3/uL Lymph # (1.5-3.5) 10^3/uL [place] # (0.0-1.0) 10^3/uL Eos # (0.0-0.7) 10^3/uL Baso # (0.0-0.1) 10^3/uL Absolute Nucleated RBC x10^3/uL Nucleated RBC % /100WBC Manual Slide Review Platelet Estimate (NORMAL) Platelet Morphology (NORMAL) RBC Morph Micro Appear (NORMAL) Sodium (135-145) mmol/L Potassium (3.5-5.0) mmol/L Chloride (101-111) mmol/L Carbon Dioxide (21-32) mmol/L Anion Gap (6-13) BUN (6-20) mg/dL Creatinine (0.4-1.0) mg/dL Estimated GFR (MDRD) (>89) Glucose (70-100) mg/dL POC Whole Bld Glucose 195 H 192 H 192 H (70 - 100) mg/dL Calcium (8.5-10.3) mg/dL Total Bilirubin (0.2-1.0) mg/dL AST (10-42) IU/L ALT (10-60) IU/L Alkaline Phosphatase (42-121) IU/L B-Natriuretic Peptide (5-100) pg/mL Total Protein (6.7-8.2) g/dL Albumin (3.2-5.5) g/dL Globulin (2.1-4.2) g/dL Albumin/Globulin Ratio (1.0-2.2) Blood Type Blood Type Recheck Antibody Screen Crossmatch IS Only 10/15/17 10/15/17 10/15/17 Range/Units 16:30 12:08 09:58 WBC (4.8-10.8) x10^3/uL RBC (4.20-5.40) 10^6/uL Hgb (12.0-16.0) g/dL Hct (37.0-47.0) % MCV (81.0-99.0) fL MCH (27.0-31.0) pg MCHC (32.0-36.0) g/dL RDW (12.0-15.0) % Plt Count (130-450) 10^3/uL MPV (7.9-10.8) fL Neut # (1.5-6.6) 10^3/uL Lymph # (1.5-3.5) 10^3/uL [place] # (0.0-1.0) 10^3/uL Eos # (0.0-0.7) 10^3/uL Baso # (0.0-0.1) 10^3/uL Absolute Nucleated RBC x10^3/uL Nucleated RBC % /100WBC Manual Slide Review Platelet Estimate (NORMAL) Platelet Morphology (NORMAL) RBC Morph Micro Appear (NORMAL) Sodium (135-145) mmol/L Potassium (3.5-5.0) mmol/L Chloride (101-111) mmol/L Carbon Dioxide (21-32) mmol/L Anion Gap (6-13) BUN (6-20) mg/dL Creatinine (0.4-1.0) mg/dL Estimated GFR (MDRD) (>89) Glucose (70-100) mg/dL POC Whole Bld Glucose 32 L* 143 H 299 H (70 - 100) mg/dL Calcium (8.5-10.3) mg/dL Total Bilirubin (0.2-1.0) mg/dL AST (10-42) IU/L ALT (10-60) IU/L Alkaline Phosphatase (42-121) IU/L B-Natriuretic Peptide (5-100) pg/mL Total Protein (6.7-8.2) g/dL Albumin (3.2-5.5) g/dL Globulin (2.1-4.2) g/dL Albumin/Globulin Ratio (1.0-2.2) Blood Type Blood Type Recheck Antibody Screen Crossmatch IS Only - Diagnostic Imaging Diagnostic Imaging Results: positive: Final report reviewed (CT abd/pelvis -- ordered f/u US as indicated) Assessment/Plan - Problem List (1) Community acquired pneumonia Impression: Presented with c/o N/V. CT abd revealed BLL consolidation R>L c/w pneumonia. Given her vomiting and RLL location, should probable cover for aspiration as well. Given her fever this AM and increased WOB, SOB and oxygen needs will escalate antibiotics. -Unasyn IV -Duonebs q6 -PRN albuterol -O2 to keeps sats >92, wean as tolerated -MOBILIZE to chair BID -Cough deep breathe - Qualifiers: Laterality: left Lung location: lower lobe of lung Qualified Code(s): J18.1 - Lobar pneumonia, unspecified organism (2) NSTEMI (non-ST elevated myocardial infarction) Impression: Upon admission troponin 0.06, no chest pain. Troponin max of 0.56, no ST changes on EKG. Case d/w primary cards and feels medical management is ideal. BB added and patient tolerated well thus far. 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 Having low AM BG and still taking insulin. Lantus held and BG controlled. PO intake probably not adequate. -Continue low dose SSI -CHO control diet -Resume lantus at 1/2 dose when BG tolerates (4) UTI (urinary tract infection) Impression: Asymptomatic UTI noted on admission. Cx + E.Coli, cx pending -Unasyn will cover UTI as well as pneumonia Qualifiers: Urinary tract infection type: acute cystitis Hematuria presence: without hematuria Qualified Code(s): N30.00 - Acute cystitis without hematuria (5) CHF (congestive heart failure) Impression: Grade 2 DD on ECHO, EF 70-75%. 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 BNP trending up since admission 318->1432, then given lasix with PRBCs on 10/16 and BNP down to 696. Could be volume overloaded vs stress from NSTEMI. Weight still up 4.3kg since admit. -Continue toprol XL -Hold PAOLA and lasix given increased creatinine, resume when able -Daily weight -Follow-up with HF clinic in 1 week Qualifiers: Congestive heart failure type: diastolic Congestive heart failure chronicity: acute on chronic Qualified Code(s): I50.33 - Acute on chronic diastolic (congestive) heart failure (6) Anemia Impression: Hx of anemia of CKD, with baseline Hgb of 9. On admit, hgb 8.8, then drop to 6.9 yesterday. Patient transfused 2units PRBCs. She has no evidence of active Gi bleeding and guaic was negative. Hgb now 10. -H&H in AM, if stable resume apixiban Qualifiers: Anemia type: unspecified type Qualified Code(s): D64.9 - Anemia, unspecified (7) Acute on chronic renal failure Impression: Based on RIFLE criteria patient sustained NATASHA given baseline creatinine 2.3, was 2.7 on admit and currently 3.1. Suspect mutlifactorial with poor PO intake DRY ROOM OPERATOR/dehydration, poor perfusion given BP above goal. Seems worse after lasix yesterday. CT abd/pelv with R lower pole hypodenisty, rad recc'd US for follow- up. -Renal US -Check FeNa (urine urea not available) -Delicate balance of fluids and diuretics, BP on lower side this AM so will await Fena before treating -Follow-up with MARIE Quigley in 1 week after discharge -Renally dose meds as needed -Avoid nephrotoxic agents (8) Chronic a-fib Impression: Chronic afib on apixiban, no rate control drugs at home. Rate controlled. Apixiban held yesterday due to acute anemia. -Continue toprol XL w/ parameters -Given no evidence of bleeding and high coronary risk with NSTEMI would resume apixiban in AM if H&H stable HOSPITAL ISSUES: DVT prophylaxis: SCDs given recent H&H drop CODE STATUS: full DC PLAN: She has been given outpatient resources for in home care, she is fiercely independent
[2017-10-17 12:50] LABS: CREATININE,URINE 45.3 mg/dL
[2017-10-17] MEDS ORDERED: AMPICILLIN/SULBACTAM 3 GM in SODIUM CHLORIDE 0.9% MINIBAG 100 ML IV SCH (13:00)
[2017-10-17] MEDS: IPRATROPIUM/ALBUTEROL 3 ML NEB INH SCH ×3 (13:06→19:20)
[2017-10-17] MEDS: AMPICILLIN/SULBACTAM 3 GM in SODIUM CHLORIDE 0.9% MINIBAG 100 ML IV SCH (13:51)
[2017-10-17] MEDS: SACCHAROMYCES BOULARDII 250 MG CAPSULE PO SCH ×2 (14:17→17:10)
--- NOTE | 2017-10-17 17:49 | Ultrasound Report ---
RENAL ULTRASOUND: 10/17/2017 CLINICAL INDICATION: Acute on chronic renal disease, possible cyst on CT. TECHNIQUE: Real-time scanning was performed with veterans employment representative static images obtained. FINDINGS: Renal ultrasound was attempted. The patient was unable to comply with breathing instructions, due to coughing, and image quality is degraded by breathing motion. The right kidney measures 8.9 x 4.5 x 4.0 cm. Renal cortical echotexture is increased. A 1 cm cyst is noted in the lower pole, but this does not correlate with the exophytic lesion identified on CT. No exophytic lesion is identified on ultrasound. No hydronephrosis or definite solid renal lesion is appreciated. The left kidney measures 8.8 x 5.0 x 4.8 cm. Renal echogenicity is increased. No hydronephrosis, definite solid renal lesion, or perinephric collection is seen. The urinary bladder is decompressed. IMPRESSION: LIMITED EXAMINATION, DUE TO PATIENT'S INABILITY TO COMPLY WITH BREATHING INSTRUCTIONS. NO DEFINITE SONOGRAPHIC CORRELATE TO THE EXOPHYTIC LESION IDENTIFIED ON CT. TD: 10/17/2017 17:48
[2017-10-18] MEDS: ALBUTEROL NEB 2.5 MG/3 ML INH PRN
[2017-10-18] MEDS: ACETAMINOPHEN 325 MG TABLET PO PRN ×4 (02:23→23:55)
[2017-10-18] MEDS: guaiFENesin/DEXTROMETHORPHAN 10 ML UDC PO PRN ×3 (02:23→23:56)
[2017-10-18] MEDS: SODIUM CHLORIDE FLUSH 0.9% 10 ML SYRINGE IVP SCH ×3 (04:34→20:25)
[2017-10-18 05:13] LABS: BASOPHILS % (AUTO) 0.2 %; EOSINOPHILS % (AUTO) 0.3 %; HGB - HEMOGLOBIN 9.3 g/dL (12.0-16.0); LYMPHOCYTES # (AUTO) 0.9 10^3/uL (1.5-3.5); LYMPHOCYTES % (AUTO) 7.7 %; MEAN CORPUSCULAR HEMOGLOBIN 29.6 pg (27.0-31.0); MEAN CORPUSCULAR HGB CONC 33.8 g/dL (32.0-36.0); MEAN CORPUSCULAR VOLUME 87.4 fL (81.0-99.0); MEAN PLATELET VOLUME 8.3 fL (7.9-10.8); MONOCYTES # (AUTO) 0.4 10^3/uL (0.0-1.0); NEUTROPHILS # (AUTO) 10.9 10^3/uL (1.5-6.6); NEUTROPHILS % (AUTO) 88.8 %; PLT - PLATELET COUNT 110 10^3/uL (130-450); RED BLOOD COUNT 3.14 10^6/uL (4.20-5.40); RED CELL DISTRIBUTION WIDTH 15.8 % (12.0-15.0); WHITE BLOOD COUNT 12.2 x10^3/uL (4.8-10.8)
[2017-10-18 05:15] LABS: ALBUMIN 2.6 g/dL (3.2-5.5); ALBUMIN/GLOBULIN RATIO 0.8 (1.0-2.2); CALCIUM 7.8 mg/dL (8.5-10.3); CREATININE 2.9 mg/dL (0.4-1.0); TOTAL PROTEIN 5.8 g/dL (6.7-8.2)
[2017-10-18 06:10] LABS: DIFFERENTIAL COMMENT MANUAL=AUTO DIFF; PLATELET ESTIMATE, MANUAL DECREASED (<130,000) (NORMAL); PLATELET MORPHOLOGY NORMAL APPEARANCE (NORMAL); RBC MORPHOLOGY (MULTIPLE) NORMAL APPEARANCE (NORMAL)
[2017-10-18] MEDS: IPRATROPIUM/ALBUTEROL 3 ML NEB INH SCH ×4 (07:10→19:45)
[2017-10-18] MEDS: INSULIN ASPART 300 UNIT/3 ML PEN SUBQ SCH ×4 (08:19→20:25)
[2017-10-18] MEDS: SACCHAROMYCES BOULARDII 250 MG CAPSULE PO SCH ×2 (08:20→16:48)
[2017-10-18] MEDS: METOPROLOL SUCCINATE 25 MG TABLET PO SCH (08:20)
[2017-10-18] MEDS: FAMOTIDINE 20 MG TABLET PO SCH (08:20)
[2017-10-18] MEDS: POLYETHYLENE GLYCOL 3350 17 GM PACKET PO SCH (08:21)
--- NOTE | 2017-10-18 12:51 | PROVIDER PROGRESS NOTE ---
Subjective - Prog Note Date Prog Note Date: 10/18/17 Prog Note Time: 12:51 - Subjective Pt reports feeling: Improved Subjective: Sierra states that she is not sleeping well. She denies chest pain, vomiting, increased SOB or changes in appetite. Current Medications - Current Medications Current Medications: Active Medications Acetaminophen (Tylenol) 650 mg PO Q4HR PRN PRN Reason: Pain 1 to 4 Last Admin: 10/18/17 23:55 Dose: 650 mg Albuterol () 2.5 mg INH RTQ4H PRN PRN Reason: Wheezing Last Admin: 10/19/17 00:15 Dose: 2.5 mg Albuterol/Ipratropium (Duoneb) 3 ml INH RTQID [facility] Last Admin: 10/19/17 11:40 Dose: 3 ml Amlodipine Besylate (Norvasc) 5 mg PO DAILY [facility] [place] Benzonatate (Tessalon) 100 mg PO TID PRN PRN Reason: Cough Last Admin: 10/19/17 05:21 Dose: 100 mg Famotidine (Pepcid) 20 mg PO DAILY [facility] [place] Last Admin: 10/19/17 08:15 Dose: 20 mg Furosemide (Lasix Inj 40 Mg Vial) 40 mg IVP ONCE BULL Stop: 10/19/17 13:24 Guaifenesin (Robitussin Dm) 10 ml PO Q6HR PRN PRN Reason: Cough Last Admin: 10/19/17 08:15 Dose: 10 ml Hydralazine HCl (Apresoline) 25 mg PO QID [facility] [place] Last Admin: 10/19/17 10:36 Dose: 25 mg Hydrochlorothiazide (Hydrodiuril) 25 mg PO DAILY [facility] [place] Last Admin: 10/19/17 10:36 Dose: 25 mg Ampicillin Sodium/Sulbactam (Sodium 3 gm/ Sodium Chloride) 100 mls @ 200 mls/ hr IV Q24H [facility] [place] Last Infusion: 10/18/17 19:28 Dose: Infused Insulin Aspart (Novolog) 1 - 9 unit SUBQ 0800,1200,1700,2100 BULL PRN Reason: Protocol Last Admin: 10/19/17 11:58 Dose: 9 unit Insulin Glargine (Lantus Solostar) 5 unit SUBQ AC [facility] [place] Last Admin: 10/19/17 11:58 Dose: 5 unit Lidocaine (Lidoderm Patch) 1 patch TOP DAILY [facility] [place] Last Admin: 10/19/17 10:36 Dose: 1 patch Methylprednisolone (Solu-Medrol (40mg Vial)) 40 mg IVP BID [facility] [place] Last Admin: 10/19/17 08:15 Dose: 40 mg Metoprolol Succinate (Toprol Xl) 12.5 mg PO DAILY [facility] [place] Last Admin: 10/19/17 08:15 Dose: 12.5 mg Polyethylene Glycol (Miralax) 17 gm PO DAILY [facility] [place] Last Admin: 10/19/17 08:15 Dose: Not Given Prochlorperazine Edisylate (Compazine Inj) 10 mg IVP Q6HR PRN PRN Reason: Nausea / Vomiting Last Admin: 10/17/17 11:00 Dose: 10 mg Saccharomyces Boulardii (Florastor) 250 mg PO BIDWM [facility] [place] Last Admin: 10/19/17 08:15 Dose: 250 mg Sodium Chloride (Normal Saline Flush 0.9%) 10 ml IVP PRN PRN PRN Reason: NEEDED PER PROVIDER ORDERS Last Admin: 10/18/17 14:51 Dose: 10 ml Sodium Chloride (Normal Saline Flush 0.9%) 10 ml IVP Q8HR [facility] [place] Last Admin: 10/19/17 05:14 Dose: 10 ml Insulin Glargine,Hum.rec.anlog [Lantus Solostar] 20 units SUBQ QPM 07/06/14 Simvastatin [Zocor] 20 mg PO QPM 07/06/14 Insulin Glulisine [Apidra] 6 unit SUBQ BIDWM 01/20/16 Doxazosin [Cardura] 4 mg PO QPM 10/15/17 Furosemide [Lasix] 40 mg PO DAILY 10/15/17 Insulin Glulisine [Apidra Solostar] 8 unit SUBQ 1200 10/15/17 Lisinopril [Lisinopril] 20 mg PO BID 10/15/17 Nitroglycerin 0.1 mg/Hr Patch [Nitro-Dur] 1 each TOP DAILY 10/15/17 amLODIPine [Norvasc] 5 mg PO QPM 10/15/17 hydrALAZINE [Apresoline] 25 mg PO QID 10/15/17 hydroCHLOROthiazide [Hydrodiuril] 25 mg PO DAILY 10/15/17 Objective - Vital Signs/Intake & Output Reviewed Vital Signs: Yes Vital Signs: Vital Signs x48h Temp Pulse Pulse Resp BP Pulse Ox 10/18/17 11:00 64 18 10/18/17 08:16 36.6 C 76 20 157/65 H 96 10/18/17 07:10 77 20 Intake & Output: Intake & Output 10/15/17 10/16/17 10/17/17 10/18/17 23:59 23:59 23:59 23:59 Intake Total 2223.3 3410 1400 450 Output Total 150 300 650 100 Balance 2073.3 3110 750 350 - Objective General Appearance: positive: No acute distress, Alert Eyes: OU Conjunctivae pale ENT: positive: ENT inspection nml, Pharynx nml, No signs of dehydration Neck: positive: Nml inspection, Thyroid nml, Trachea midline Respiratory: positive: Chest non-tender, No respiratory distress, Breath sounds nml, Rhonchi Cardiovascular: positive: No gallop, Irregularly irregular, Tachycardia, Systolic murmur, Decreased pulse(s) Peripheral Pulses: 1+ Radial (R), 1+ Radial (L) Abdomen: positive: Non-tender, No organomegaly, Nml bowel sounds, No distention Back: positive: Nml inspection Skin: positive: No rash, Warm, Dry, Pallor Extremities: positive: Non-tender, Full ROM, Nml appearance Neurologic/Psychiatric: positive: Oriented x3, Weakness, Sensory loss, Depressed mood/affect Reflexes: Bicep (R): 2+, Bicep (L): 2+ - Lab Results Fish Bones: 10/19/17 04:43 10/19/17 04:43 Other Labs: Lab Results x24hrs 10/18/17 10/18/17 10/18/17 Range/Units 11:43 07:52 04:32 WBC 12.2 H (4.8-10.8) x10^3/uL RBC 3.14 L (4.20-5.40) 10^6/uL Hgb 9.3 L (12.0-16.0) g/dL Hct 27.4 L (37.0-47.0) % MCV 87.4 (81.0-99.0) fL MCH 29.6 (27.0-31.0) pg MCHC 33.8 (32.0-36.0) g/dL RDW 15.8 H (12.0-15.0) % Plt Count 110 L (130-450) 10^3/uL MPV 8.3 (7.9-10.8) fL Neut # 10.9 H (1.5-6.6) 10^3/uL Lymph # 0.9 L (1.5-3.5) 10^3/uL [place] # 0.4 (0.0-1.0) 10^3/uL Eos # 0.0 (0.0-0.7) 10^3/uL Baso # 0.0 (0.0-0.1) 10^3/uL Absolute Nucleated RBC 0.03 x10^3/uL Band Neuts % (Manual) Not Reportable Abnorm Lymph % (Manual) Not Reportable Nucleated RBC % 0.2 /100WBC Neutrophils # (Manual) Not Reportable Lymphocytes # (Manual) Not Reportable Monocytes # (Manual) Not Reportable Eosinophils # (Manual) Not Reportable Basophils # (Manual) Not Reportable Differential Comment MANUAL=AUTO DIFF Platelet Estimate DECREASED (<130,000) (NORMAL) Platelet Morphology NORMAL APPEARANCE (NORMAL) RBC Morph Micro Appear NORMAL APPEARANCE (NORMAL) Sodium (135-145) mmol/L Potassium (3.5-5.0) mmol/L Chloride (101-111) mmol/L Carbon Dioxide (21-32) mmol/L Anion Gap (6-13) BUN (6-20) mg/dL Creatinine (0.4-1.0) mg/dL Estimated GFR (MDRD) (>89) Glucose (70-100) mg/dL POC Whole Bld Glucose 180 H 123 H (70 - 100) mg/dL Calcium (8.5-10.3) mg/dL Total Bilirubin (0.2-1.0) mg/dL AST (10-42) IU/L ALT (10-60) IU/L Alkaline Phosphatase (42-121) IU/L B-Natriuretic Peptide (5-100) pg/mL Total Protein (6.7-8.2) g/dL Albumin (3.2-5.5) g/dL Globulin (2.1-4.2) g/dL Albumin/Globulin Ratio (1.0-2.2) 02/21/18 02/21/18 02/20/18 Range/Units 04:32 04:32 20:55 WBC (4.8-10.8) x10^3/uL RBC (4.20-5.40) 10^6/uL Hgb (12.0-16.0) g/dL Hct (37.0-47.0) % MCV (81.0-99.0) fL MCH (27.0-31.0) pg MCHC (32.0-36.0) g/dL RDW (12.0-15.0) % Plt Count (130-450) 10^3/uL MPV (7.9-10.8) fL Neut # (1.5-6.6) 10^3/uL Lymph # (1.5-3.5) 10^3/uL [place] # (0.0-1.0) 10^3/uL Eos # (0.0-0.7) 10^3/uL Baso # (0.0-0.1) 10^3/uL Absolute Nucleated RBC x10^3/uL Band Neuts % (Manual) Abnorm Lymph % (Manual) Nucleated RBC % /100WBC Neutrophils # (Manual) Lymphocytes # (Manual) Monocytes # (Manual) Eosinophils # (Manual) Basophils # (Manual) Differential Comment Platelet Estimate (NORMAL) Platelet Morphology (NORMAL) RBC Morph Micro Appear (NORMAL) Sodium 132 L (135-145) mmol/L Potassium 3.3 L (3.5-5.0) mmol/L Chloride 101 (101-111) mmol/L Carbon Dioxide 22 (21-32) mmol/L Anion Gap 9.0 (6-13) BUN 69 H (6-20) mg/dL Creatinine 2.9 H (0.4-1.0) mg/dL Estimated GFR (MDRD) 15 L (>89) Glucose 134 H (70-100) mg/dL POC Whole Bld Glucose 195 H (70 - 100) mg/dL Calcium 7.8 L (8.5-10.3) mg/dL Total Bilirubin 1.0 (0.2-1.0) mg/dL AST 60 H (10-42) IU/L ALT 22 (10-60) IU/L Alkaline Phosphatase 55 (42-121) IU/L B-Natriuretic Peptide 529 H (5-100) pg/mL Total Protein 5.8 L (6.7-8.2) g/dL Albumin 2.6 L (3.2-5.5) g/dL Globulin 3.2 (2.1-4.2) g/dL Albumin/Globulin Ratio 0.8 L (1.0-2.2) 10/17/17 Range/Units 16:30 WBC (4.8-10.8) x10^3/uL RBC (4.20-5.40) 10^6/uL Hgb (12.0-16.0) g/dL Hct (37.0-47.0) % MCV (81.0-99.0) fL MCH (27.0-31.0) pg MCHC (32.0-36.0) g/dL RDW (12.0-15.0) % Plt Count (130-450) 10^3/uL MPV (7.9-10.8) fL Neut # (1.5-6.6) 10^3/uL Lymph # (1.5-3.5) 10^3/uL [place] # (0.0-1.0) 10^3/uL Eos # (0.0-0.7) 10^3/uL Baso # (0.0-0.1) 10^3/uL Absolute Nucleated RBC x10^3/uL Band Neuts % (Manual) Abnorm Lymph % (Manual) Nucleated RBC % /100WBC Neutrophils # (Manual) Lymphocytes # (Manual) Monocytes # (Manual) Eosinophils # (Manual) Basophils # (Manual) Differential Comment Platelet Estimate (NORMAL) Platelet Morphology (NORMAL) RBC Morph Micro Appear (NORMAL) Sodium (135-145) mmol/L Potassium (3.5-5.0) mmol/L Chloride (101-111) mmol/L Carbon Dioxide (21-32) mmol/L Anion Gap (6-13) BUN (6-20) mg/dL Creatinine (0.4-1.0) mg/dL Estimated GFR (MDRD) (>89) Glucose (70-100) mg/dL POC Whole Bld Glucose 162 H (70 - 100) mg/dL Calcium (8.5-10.3) mg/dL Total Bilirubin (0.2-1.0) mg/dL AST (10-42) IU/L ALT (10-60) IU/L Alkaline Phosphatase (42-121) IU/L B-Natriuretic Peptide (5-100) pg/mL Total Protein (6.7-8.2) g/dL Albumin (3.2-5.5) g/dL Globulin (2.1-4.2) g/dL Albumin/Globulin Ratio (1.0-2.2) - Diagnostic Imaging Diagnostic Imaging Results: positive: Final report reviewed Assessment/Plan - Problem List (1) CHF (congestive heart failure) Impression: Grade 2 DD on ECHO, EF 70-75%. On norvasc, lisinopril, hydralazine and lasix [employer]. BNP trending up since admission 318->1432, then given lasix with PRBCs on 10/16 and BNP down to 596. Could be volume overloaded vs stress from NSTEMI. Weight still up 4.3kg since admit. -Continue toprol XL -Hold PAOLA and lasix given increased creatinine, resume when able -Daily weights Qualifiers: Congestive heart failure type: diastolic Congestive heart failure chronicity: acute on chronic Qualified Code(s): I50.33 - Acute on chronic diastolic (congestive) heart failure (2) Community acquired pneumonia Impression: Presented with complaints of N/V. CT abd revealed BLL consolidation R>L c/w pneumonia. Patient has had on and off fevers, despite antibiotics, increased breathing efforts, SOB and oxygen needs. Antibiotic changed to Unasyn IV. Plan: -Unasyn IV -Duonebs q6 -PRN albuterol -O2 to keeps sats >92, wean as tolerated -MOBILIZE to chair BID -Cough deep breath Qualifiers: Laterality: left Lung location: lower lobe of lung Qualified Code(s): J18.1 - Lobar pneumonia, unspecified organism (3) E. coli UTI Impression: Asymptomatic UTI noted on admission. Cultures grew out + E.Coli. Final culture sensitivities are pending. Plan: Unasyn will cover UTI as well as pneumonia. (4) Diabetes mellitus type 2 in nonobese Impression: On lantus [employer]LYST. Having low AM BG and still taking insulin. Lantus held and BG controlled. PO intake probably not adequate. Plan: -Continue low dose SSI -CHO control diet -Resume lantus at 1/2 dose when BG tolerates (5) NSTEMI (non-ST elevated myocardial infarction) Impression: Upon admission troponin 0.06, no chest pain. Troponin max of 0.56, no ST changes on EKG. Case d/w primary cards and feels medical management is ideal. BB added and patient tolerated well thus far. 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
[2017-10-18] MEDS: BENZONATATE 100 MG CAPSULE PO PRN ×2 (13:05→20:24)
[2017-10-18] MEDS: AMPICILLIN/SULBACTAM 3 GM in SODIUM CHLORIDE 0.9% MINIBAG 100 ML IV SCH (13:06)
[2017-10-18] MEDS: SODIUM CHLORIDE FLUSH 0.9% 10 ML SYRINGE IVP PRN (14:51)
[2017-10-18] MEDS: methylPREDNISolone SUCCINATE 40 MG/ML VIAL IVP SCH ×2 (14:51→20:24)
[2017-10-19] MEDS: ALBUTEROL NEB 2.5 MG/3 ML INH PRN (00:15)
[2017-10-19] MEDS: SODIUM CHLORIDE FLUSH 0.9% 10 ML SYRINGE IVP SCH ×3 (05:14→20:15)
[2017-10-19] MEDS: BENZONATATE 100 MG CAPSULE PO PRN ×2 (05:21→20:12)
[2017-10-19 05:31] LABS: BASOPHILS % (AUTO) 0.1 %; EOSINOPHILS % (AUTO) 0.8 %; HGB - HEMOGLOBIN 10.8 g/dL (12.0-16.0); LYMPHOCYTES % (AUTO) 4.6 %; MEAN CORPUSCULAR HEMOGLOBIN 29.5 pg (27.0-31.0); MEAN CORPUSCULAR HGB CONC 33.3 g/dL (32.0-36.0); MEAN CORPUSCULAR VOLUME 88.6 fL (81.0-99.0); MEAN PLATELET VOLUME 8.1 fL (7.9-10.8); MONOCYTES % (AUTO) 1.8 %; NEUTROPHILS % (AUTO) 92.7 %; PLT - PLATELET COUNT 132 10^3/uL (130-450); RED BLOOD COUNT 3.65 10^6/uL (4.20-5.40); RED CELL DISTRIBUTION WIDTH 15.8 % (12.0-15.0); WHITE BLOOD COUNT 8.8 x10^3/uL (4.8-10.8)
[2017-10-19 05:32] LABS: ABNORMAL LYMPHS % (MANUAL) 0 %
[2017-10-19 05:33] LABS: ALBUMIN 2.8 g/dL (3.2-5.5); ALBUMIN/GLOBULIN RATIO 0.7 (1.0-2.2); BILIRUBIN,TOTAL 0.9 mg/dL (0.2-1.0); CALCIUM 8.5 mg/dL (8.5-10.3); CREATININE 2.5 mg/dL (0.4-1.0); TOTAL PROTEIN 6.7 g/dL (6.7-8.2)
[2017-10-19 05:58] LABS: BAND NEUTROPHILS % (MANUAL) 13 %; LYMPHOCYTES # (MANUAL) 0.6 10^3/uL (1.5-3.5); LYMPHOCYTES % (MANUAL) 7 %; MONOCYTES # (MANUAL) 0.2 10^3/uL (0.0-1.0); NEUTROPHILS % (MANUAL) 78 %; PLATELET ESTIMATE, MANUAL NORMAL (130-450,000) (NORMAL); RBC MORPHOLOGY (MULTIPLE) NORMAL APPEARANCE (NORMAL)
[2017-10-19 05:59] LABS: DIFFERENTIAL COMMENT MANUAL DIFFERENTIAL
[2017-10-19] MEDS: IPRATROPIUM/ALBUTEROL 3 ML NEB INH SCH ×4 (07:15→21:28)
[2017-10-19] MEDS: guaiFENesin/DEXTROMETHORPHAN 10 ML UDC PO PRN ×2 (08:15→16:42)
[2017-10-19] MEDS: SACCHAROMYCES BOULARDII 250 MG CAPSULE PO SCH ×2 (08:15→16:42)
[2017-10-19] MEDS: methylPREDNISolone SUCCINATE 40 MG/ML VIAL IVP SCH ×2 (08:15→20:15)
[2017-10-19] MEDS: FAMOTIDINE 20 MG TABLET PO SCH (08:15)
[2017-10-19] MEDS: POLYETHYLENE GLYCOL 3350 17 GM PACKET PO SCH (08:15)
[2017-10-19] MEDS: METOPROLOL SUCCINATE 25 MG TABLET PO SCH (08:15)
[2017-10-19] MEDS: INSULIN ASPART 300 UNIT/3 ML PEN SUBQ SCH ×4 (08:16→20:14)
[2017-10-19] MEDS: hydroCHLOROthiazide 25 MG TABLET PO SCH (10:36)
[2017-10-19] MEDS: hydrALAZINE 25 MG TABLET PO SCH ×4 (10:36→20:12)
[2017-10-19] MEDS: LIDOCAINE PATCH 5% TOP SCH (10:36)
[2017-10-19] MEDS: INSULIN GLARGINE 300 UNIT/3 ML PEN SUBQ SCH ×2 (11:58→16:44)
[2017-10-19] MEDS ORDERED: FUROSEMIDE 40 MG/4 ML VIAL IVP SCH (12:24)
--- NOTE | 2017-10-19 12:27 | PROVIDER PROGRESS NOTE ---
Subjective - Prog Note Date Prog Note Date: 10/19/17 Prog Note Time: 08:00 - Subjective Pt reports feeling: No change Subjective: Sierra was tearful during her exam. She denies SOB, chest pain, N/V or a new cough. She admits to generally just not feeling well. Current Medications - Current Medications Current Medications: Active Medications Acetaminophen (Tylenol) 650 mg PO Q4HR PRN PRN Reason: Pain 1 to 4 Last Admin: 10/18/17 23:55 Dose: 650 mg Albuterol () 2.5 mg INH RTQ4H PRN PRN Reason: Wheezing Last Admin: 10/19/17 00:15 Dose: 2.5 mg Albuterol/Ipratropium (Duoneb) 3 ml INH RTQID [facility] Last Admin: 10/19/17 11:40 Dose: 3 ml Amlodipine Besylate (Norvasc) 5 mg PO DAILY [facility] Benzonatate (Tessalon) 100 mg PO TID PRN PRN Reason: Cough Last Admin: 10/19/17 05:21 Dose: 100 mg Famotidine (Pepcid) 20 mg PO DAILY [facility] Last Admin: 10/19/17 08:15 Dose: 20 mg Furosemide (Lasix Inj 40 Mg Vial) 40 mg IVP ONCE ONE Stop: 10/19/17 12:25 Guaifenesin (Robitussin Dm) 10 ml PO Q6HR PRN PRN Reason: Cough Last Admin: 10/19/17 08:15 Dose: 10 ml Hydralazine HCl (Apresoline) 25 mg PO QID [facility] Last Admin: 10/19/17 10:36 Dose: 25 mg Hydrochlorothiazide (Hydrodiuril) 25 mg PO DAILY [facility] Last Admin: 10/19/17 10:36 Dose: 25 mg Ampicillin Sodium/Sulbactam (Sodium 3 gm/ Sodium Chloride) 100 mls @ 200 mls/ hr IV Q24H [facility] Last Infusion: 10/18/17 19:28 Dose: Infused Insulin Aspart (Novolog) 1 - 9 unit SUBQ 0800,1200,1700,2100 BULL PRN Reason: Protocol Last Admin: 10/19/17 11:58 Dose: 9 unit Insulin Glargine (Lantus Solostar) 5 unit SUBQ AC [facility] Last Admin: 10/19/17 11:58 Dose: 5 unit Lidocaine (Lidoderm Patch) 1 patch TOP DAILY [facility] Last Admin: 10/19/17 10:36 Dose: 1 patch Methylprednisolone (Solu-Medrol (40mg Vial)) 40 mg IVP BID [facility] Last Admin: 10/19/17 08:15 Dose: 40 mg Metoprolol Succinate (Toprol Xl) 12.5 mg PO DAILY [facility] Last Admin: 10/19/17 08:15 Dose: 12.5 mg Polyethylene Glycol (Miralax) 17 gm PO DAILY [facility] Last Admin: 10/19/17 08:15 Dose: Not Given Prochlorperazine Edisylate (Compazine Inj) 10 mg IVP Q6HR PRN PRN Reason: Nausea / Vomiting Last Admin: 10/17/17 11:00 Dose: 10 mg Saccharomyces Boulardii (Florastor) 250 mg PO BIDWM [facility] Last Admin: 10/19/17 08:15 Dose: 250 mg Sodium Chloride (Normal Saline Flush 0.9%) 10 ml IVP PRN PRN PRN Reason: NEEDED PER PROVIDER ORDERS Last Admin: 10/18/17 14:51 Dose: 10 ml Sodium Chloride (Normal Saline Flush 0.9%) 10 ml IVP Q8HR [facility] Last Admin: 10/19/17 05:14 Dose: 10 ml Insulin Glargine,Hum.rec.anlog [Lantus Solostar] 20 units SUBQ QPM 07/06/14 Simvastatin [Zocor] 20 mg PO QPM 07/06/14 Insulin Glulisine [Apidra] 6 unit SUBQ BIDWM 01/20/16 Doxazosin [Cardura] 4 mg PO QPM 10/15/17 Furosemide [Lasix] 40 mg PO DAILY 10/15/17 Insulin Glulisine [Apidra Solostar] 8 unit SUBQ 1200 10/15/17 Lisinopril [Lisinopril] 20 mg PO BID 10/15/17 Nitroglycerin 0.1 mg/Hr Patch [Nitro-Dur] 1 each TOP DAILY 10/15/17 amLODIPine [Norvasc] 5 mg PO QPM 10/15/17 hydrALAZINE [Apresoline] 25 mg PO QID 10/15/17 hydroCHLOROthiazide [Hydrodiuril] 25 mg PO DAILY 10/15/17 Objective - Vital Signs/Intake & Output Reviewed Vital Signs: Yes Vital Signs: Vital Signs x48h Temp Pulse Pulse Resp BP Pulse Ox 10/19/17 11:40 82 20 10/19/17 07:47 36.4 C L 112 H 14 190/75 H 97 10/19/17 07:15 102 H 18 Intake & Output: Intake & Output 10/16/17 10/17/17 10/18/17 10/19/17 23:59 23:59 23:59 23:59 Intake Total 3410 1400 1230 680 Output Total 300 650 700 Balance 3110 750 530 680 - Objective General Appearance: positive: No acute distress, Anxious Eyes Bilateral: positive: Normal inspection ENT: positive: ENT inspection nml, Pharynx nml Neck: positive: Nml inspection, Thyroid nml, No JVD Respiratory: positive: Chest non-tender, No respiratory distress, Breath sounds nml, Other (diminished with bilateral lobe crackles.) Cardiovascular: positive: No gallop, Irregularly irregular, Systolic murmur, Decreased pulse(s) Peripheral Pulses: 1+ Radial (R), 1+ Radial (L) Abdomen: positive: Non-tender, No organomegaly, Nml bowel sounds, No distention Back: positive: Nml inspection Skin: positive: No rash, Warm, Dry, Pallor Extremities: positive: Non-tender, Full ROM, Nml appearance, Pedal edema (trace , dependent.) Neurologic/Psychiatric: positive: Disoriented to time, Weakness, Sensory loss, Depressed mood/affect Reflexes: Bicep (R): 2+, Bicep (L): 2+ - Lab Results Fish Bones: 10/19/17 04:43 10/19/17 04:43 Other Labs: Lab Results x24hrs 10/19/17 10/19/17 10/19/17 Range/Units 11:33 07:57 04:43 WBC (4.8-10.8) x10^3/uL RBC (4.20-5.40) 10^6/uL Hgb (12.0-16.0) g/dL Hct (37.0-47.0) % MCV (81.0-99.0) fL MCH (27.0-31.0) pg MCHC (32.0-36.0) g/dL RDW (12.0-15.0) % Plt Count (130-450) 10^3/uL MPV (7.9-10.8) fL Neut # Lymph # [place] # Eos # Baso # Absolute Nucleated RBC Total Counted Band Neuts % (Manual) (0 - 10) % Abnorm Lymph % (Manual) % Nucleated RBC % Neutrophils # (Manual) (1.5-6.6) 10^3/uL Lymphocytes # (Manual) (1.5-3.5) 10^3/uL Monocytes # (Manual) (0.0-1.0) 10^3/uL Eosinophils # (Manual) (0-0.7) 10^3/uL Basophils # (Manual) (0-0.1) 10^3/uL Differential Comment Platelet Estimate (NORMAL) RBC Morph Micro Appear (NORMAL) Sodium (135-145) mmol/L Potassium (3.5-5.0) mmol/L Chloride (101-111) mmol/L Carbon Dioxide (21-32) mmol/L Anion Gap (6-13) BUN (6-20) mg/dL Creatinine (0.4-1.0) mg/dL Estimated GFR (MDRD) (>89) Glucose (70-100) mg/dL POC Whole Bld Glucose 367 H 347 H (70 - 100) mg/dL Calcium (8.5-10.3) mg/dL Total Bilirubin (0.2-1.0) mg/dL AST (10-42) IU/L ALT (10-60) IU/L Alkaline Phosphatase (42-121) IU/L B-Natriuretic Peptide 2214 H (5-100) pg/mL Total Protein (6.7-8.2) g/dL Albumin (3.2-5.5) g/dL Globulin (2.1-4.2) g/dL Albumin/Globulin Ratio (1.0-2.2) 10/19/17 10/19/17 10/18/17 Range/Units 04:43 04:43 20:21 WBC 8.8 (4.8-10.8) x10^3/uL RBC 3.65 L (4.20-5.40) 10^6/uL Hgb 10.8 L (12.0-16.0) g/dL Hct 32.3 L (37.0-47.0) % MCV 88.6 (81.0-99.0) fL MCH 29.5 (27.0-31.0) pg MCHC 33.3 (32.0-36.0) g/dL RDW 15.8 H (12.0-15.0) % Plt Count 132 (130-450) 10^3/uL MPV 8.1 (7.9-10.8) fL Neut # Not Reportable Lymph # Not Reportable [place] # Not Reportable Eos # Not Reportable Baso # Not Reportable Absolute Nucleated RBC Not Reportable Total Counted 100 Band Neuts % (Manual) 13 H (0 - 10) % Abnorm Lymph % (Manual) 0 % Nucleated RBC % Not Reportable Neutrophils # (Manual) 8.0 H (1.5-6.6) 10^3/uL Lymphocytes # (Manual) 0.6 L (1.5-3.5) 10^3/uL Monocytes # (Manual) 0.2 (0.0-1.0) 10^3/uL Eosinophils # (Manual) 0.0 (0-0.7) 10^3/uL Basophils # (Manual) 0.0 (0-0.1) 10^3/uL Differential Comment MANUAL DIFFERENTIAL Platelet Estimate NORMAL (130-450,000) (NORMAL) RBC Morph Micro Appear NORMAL APPEARANCE (NORMAL) Sodium 133 L (135-145) mmol/L Potassium 3.8 (3.5-5.0) mmol/L Chloride 97 L (101-111) mmol/L Carbon Dioxide 22 (21-32) mmol/L Anion Gap 14.0 H (6-13) BUN 61 H (6-20) mg/dL Creatinine 2.5 H (0.4-1.0) mg/dL Estimated GFR (MDRD) 18 L (>89) Glucose 320 H (70-100) mg/dL POC Whole Bld Glucose 353 H (70 - 100) mg/dL Calcium 8.5 (8.5-10.3) mg/dL Total Bilirubin 0.9 (0.2-1.0) mg/dL AST 54 H (10-42) IU/L ALT 24 (10-60) IU/L Alkaline Phosphatase 63 (42-121) IU/L B-Natriuretic Peptide (5-100) pg/mL Total Protein 6.7 (6.7-8.2) g/dL Albumin 2.8 L (3.2-5.5) g/dL Globulin 3.9 (2.1-4.2) g/dL Albumin/Globulin Ratio 0.7 L (1.0-2.2) 10/18/17 Range/Units 16:28 WBC (4.8-10.8) x10^3/uL RBC (4.20-5.40) 10^6/uL Hgb (12.0-16.0) g/dL Hct (37.0-47.0) % MCV (81.0-99.0) fL MCH (27.0-31.0) pg MCHC (32.0-36.0) g/dL RDW (12.0-15.0) % Plt Count (130-450) 10^3/uL MPV (7.9-10.8) fL Neut # Lymph # [place] # Eos # Baso # Absolute Nucleated RBC Total Counted Band Neuts % (Manual) (0 - 10) % Abnorm Lymph % (Manual) % Nucleated RBC % Neutrophils # (Manual) (1.5-6.6) 10^3/uL Lymphocytes # (Manual) (1.5-3.5) 10^3/uL Monocytes # (Manual) (0.0-1.0) 10^3/uL Eosinophils # (Manual) (0-0.7) 10^3/uL Basophils # (Manual) (0-0.1) 10^3/uL Differential Comment Platelet Estimate (NORMAL) RBC Morph Micro Appear (NORMAL) Sodium (135-145) mmol/L Potassium (3.5-5.0) mmol/L Chloride (101-111) mmol/L Carbon Dioxide (21-32) mmol/L Anion Gap (6-13) BUN (6-20) mg/dL Creatinine (0.4-1.0) mg/dL Estimated GFR (MDRD) (>89) Glucose (70-100) mg/dL POC Whole Bld Glucose 179 H (70 - 100) mg/dL Calcium (8.5-10.3) mg/dL Total Bilirubin (0.2-1.0) mg/dL AST (10-42) IU/L ALT (10-60) IU/L Alkaline Phosphatase (42-121) IU/L B-Natriuretic Peptide (5-100) pg/mL Total Protein (6.7-8.2) g/dL Albumin (3.2-5.5) g/dL Globulin (2.1-4.2) g/dL Albumin/Globulin Ratio (1.0-2.2) - Diagnostic Imaging Diagnostic Imaging Results: positive: Final report reviewed Assessment/Plan - Problem List (1) CHF (congestive heart failure) Impression: Grade 2 DD on ECHO, EF 70-75% was noted on most recent echocardiogram. Patient is on norvasc, lisinopril, hydralazine and lasix at home. BNP trending up since admission 318->1432, then given lasix with PRBCs on 10/16 and BNP down to 596. Today there was a abrupt rise in BNP of 2214. A one time dose of IV lasix 40mg, was ordered. Weight still up 4.3kg since admit. Plan: Continue toprol XL, hold PAOLA, and lasix was ordered today as a one time dose of 40mg IV push. We will continue to monitor labs, daily weights and I/O' s. Patient has gone past her usual 96 hour hospital stay due to complications such as acute [place], pneumonia, UTI and poor PO intake. She was supposed to be medically cleared today, but now has an elevated BNP that needs IV treatment. She will likely be medically appropriate for discharge tomorrow as long as her fluid balance stays tolerable. Qualifiers: Congestive heart failure type: diastolic Congestive heart failure chronicity: acute on chronic Qualified Code(s): I50.33 - Acute on chronic diastolic (congestive) heart failure (2) Community acquired pneumonia Impression: Patient presented with complaints of N/V. Abdominal CT revealed BLL consolidation R>L c/w pneumonia. Patient has had on and off fevers, despite antibiotics, increased breathing efforts, SOB and oxygen needs. Antibiotic changed to Unasyn IV. Plan: Continue Unasyn IV, Duonebs q6, PRN albuterol, O2 to keeps sats >92, wean as tolerated, MOBILIZE to chair BID, and encourage cough and deep breathing. Qualifiers: Laterality: left Lung location: lower lobe of lung Qualified Code(s): J18.1 - Lobar pneumonia, unspecified organism (3) E. coli UTI Impression: Asymptomatic UTI noted on admission. Cultures grew out + E.Coli. Final culture sensitivities are pending. Plan: Unasyn will cover UTI as well as pneumonia. (4) Diabetes mellitus type 2 in nonobese Impression: Patient was on lantus at home, but was having low AM blood sugars. Lantus held and BG controlled. PO intake probably not adequate. Plan: Continue low dose SSI, carb controlled diet, and lantus was resumed at a low dose of 5 units today. (5) NSTEMI (non-ST elevated myocardial infarction) Impression: Upon admission troponin 0.06, no chest pain. Troponin max of 0.56, no ST changes on EKG. Case d/w primary cards and feels medical management is ideal. BB added and patient tolerated well thus far. Plan: Continue toprol-xl 12.5mg w/ parameters. We will continue to hold Eliquis as per cardiology recommendation. Patient should plan to follow up with primary manager mission 1-2wk from discharge.
[2017-10-19] MEDS: AMPICILLIN/SULBACTAM 3 GM in SODIUM CHLORIDE 0.9% MINIBAG 100 ML IV SCH (13:16)
[2017-10-19] MEDS: ACETAMINOPHEN 325 MG TABLET PO PRN (20:12)
[2017-10-19] MEDS ORDERED: amLODIPine 5 MG TABLET PO SCH (21:00)
[2017-10-20] MEDS ORDERED: diphenhydrAMINE 25 MG CAPSULE PO PRN (00:06)
[2017-10-20] MEDS: guaiFENesin/DEXTROMETHORPHAN 10 ML UDC PO PRN ×3 (00:57→23:50)
[2017-10-20 05:02] LABS: ALBUMIN 2.7 g/dL (3.2-5.5); ALBUMIN/GLOBULIN RATIO 0.8 (1.0-2.2); BILIRUBIN,TOTAL 0.9 mg/dL (0.2-1.0); CALCIUM 8.6 mg/dL (8.5-10.3); CREATININE 2.6 mg/dL (0.4-1.0); TOTAL PROTEIN 6.3 g/dL (6.7-8.2)
[2017-10-20 05:09] LABS: BASOPHILS % (AUTO) 0.1 %; MEAN CORPUSCULAR VOLUME 88.5 fL (81.0-99.0); MEAN PLATELET VOLUME 8.3 fL (7.9-10.8)
[2017-10-20 05:22] LABS: HGB - HEMOGLOBIN 10.1 g/dL (12.0-16.0); LYMPHOCYTES % (AUTO) 8.3 %; MEAN CORPUSCULAR HEMOGLOBIN 29.1 pg (27.0-31.0); MEAN CORPUSCULAR HGB CONC 32.9 g/dL (32.0-36.0); MONOCYTES % (AUTO) 5.8 %; NEUTROPHILS % (AUTO) 85.8 %; PLT - PLATELET COUNT 136 10^3/uL (130-450); RED BLOOD COUNT 3.47 10^6/uL (4.20-5.40); RED CELL DISTRIBUTION WIDTH 15.7 % (12.0-15.0); WHITE BLOOD COUNT 8.9 x10^3/uL (4.8-10.8)
[2017-10-20 05:26] LABS: ABNORMAL LYMPHS % (MANUAL) 0 %
[2017-10-20 05:54] LABS: BAND NEUTROPHILS % (MANUAL) 10 %; DIFFERENTIAL COMMENT MANUAL DIFFERENTIAL; LYMPHOCYTES # (MANUAL) 0.9 10^3/uL (1.5-3.5); LYMPHOCYTES % (MANUAL) 10 %; METAMYELOCYTES % (MANUAL) 1 %; MONOCYTES # (MANUAL) 0.4 10^3/uL (0.0-1.0); NEUTROPHILS # (MANUAL) 7.6 10^3/uL (1.5-6.6); NEUTROPHILS % (MANUAL) 75 %; PLATELET ESTIMATE, MANUAL NORMAL (130-450,000) (NORMAL); RBC MORPHOLOGY (MULTIPLE) NORMAL APPEARANCE (NORMAL)
[2017-10-20] MEDS ORDERED: INSULIN GLARGINE 300 UNIT/3 ML PEN SUBQ SCH (07:00)
[2017-10-20] MEDS: IPRATROPIUM/ALBUTEROL 3 ML NEB INH SCH ×4 (07:30→20:02)
[2017-10-20] MEDS: LIDOCAINE PATCH 5% TOP SCH (08:22)
[2017-10-20] MEDS: FAMOTIDINE 20 MG TABLET PO SCH (08:23)
[2017-10-20] MEDS: SODIUM CHLORIDE FLUSH 0.9% 10 ML SYRINGE IVP PRN (08:23)
[2017-10-20] MEDS: methylPREDNISolone SUCCINATE 40 MG/ML VIAL IVP SCH (08:23)
[2017-10-20] MEDS: hydroCHLOROthiazide 25 MG TABLET PO SCH (08:24)
[2017-10-20] MEDS: SACCHAROMYCES BOULARDII 250 MG CAPSULE PO SCH ×2 (08:24→17:55)
[2017-10-20] MEDS: hydrALAZINE 25 MG TABLET PO SCH ×4 (08:25→22:05)
[2017-10-20] MEDS: amLODIPine 5 MG TABLET PO SCH (08:25)
[2017-10-20] MEDS: METOPROLOL SUCCINATE 25 MG TABLET PO SCH (08:26)
[2017-10-20] MEDS: BENZONATATE 100 MG CAPSULE PO PRN (08:27)
[2017-10-20] MEDS: POLYETHYLENE GLYCOL 3350 17 GM PACKET PO SCH (08:28)
[2017-10-20] MEDS: INSULIN ASPART 300 UNIT/3 ML PEN SUBQ SCH ×5 (08:28→22:06)
[2017-10-20] MEDS: INSULIN GLARGINE 300 UNIT/3 ML PEN SUBQ SCH (08:29)
[2017-10-20] MEDS: SODIUM CHLORIDE FLUSH 0.9% 10 ML SYRINGE IVP SCH ×4 (08:39→23:50)
[2017-10-20] MEDS ORDERED: BENZOCAINE/MENTHOL LOZENGE MM PRN (11:01)
--- NOTE | 2017-10-20 13:21 | Discharge Plan ---
"Discharge Plan for SNF / [facility] - DC Plan and Transition Orders Disposition: 03 SNF DC/Xfer Condition: Good SNF Transition Orders: Admit to: [facility] under the care of Tabitha Kingston Discharge Diagnosis: Pneumonia, UTI, acute on chronic CHF, DM type 2-insulin dependent, NSTEMI. Medicare Certification: I certify that [facility] care is medically necessary on a continuing basis for any of the conditions for which she/he is receiving care during hospitalization. Notify PCP of admission and forward orders to primary provider for signature. Weight on admission and weekly. Call PCP immediately if weight increases by 10 pounds or if patient develops dyspnea, chest pain/tightness or edema. House Bowel Program: yes If no BM after 2 days, nurse may give M.O.M. 30ml PO PRN and /or ducolax Supp 1 NM and /or JANUSZ 250mg P.O., and/or senna 1-2 tabs PO. On day 3 nurse may give repeat above order until residents constipation is resolved. Immunizations: Annual Influenza Vaccine: yes; (between Apr 28 and November 25. ) Unless allergy or already given Two-Step PPD: yes; per [facility] [id number] or appropriate documentation of approved exceptions Treatments & Other Orders: PT/OT and speech therapy if indicated. Patient has not required any swallowing tests. There were no procedures or interventions completed while in our care. Oxygen Orders: 1-4L nasal cannula, titrate to keep oxygen at least 90%. Lab Tests or X-Rays Orders: Should draw at least weekly electrolytes and CBC labs. Orthopedic Orders: N/A. Medications: PLEASE REFER TO THE DISCHARGE MEDICATION LIST. Insulin Orders? yes Diagnosis: Diabetes Initiate hypo and hyperglycemia protocols for BG <70 and BG >375. May check BG prn for signs/symptoms of dysglycemia. Frequency of BG checks: AC/Meal/HS Basal Insulin: Lantus 20 units @ HS subq injection scheduled. Correction Insulin: - Select the type of insulin below Choose: Novolog (Apidra): Scheduled TID-AC 5 units with meals in addition to sliding scale as Moderate dosing: LOW DOSE MODERATE DOSE XX MODERATE/HIGH DOSE HIGH DOSE GB UNITS GB UNITS GB UNITS GB UNITS 61-140 0 UNITS 61-140 0 UNITS 61-140 0 UNITS 61-140 0 UNITS 141-175 1 UNITS 141-175 1 UNITS 141-175 2 UNITS 141-175 3 UNITS 176-225 2 UNITS 176-225 3 UNITS 176-225 4 UNITS 176-225 5 UNITS 226-275 3 UNITS 226-275 5 UNITS 226-275 6 UNITS 226-275 7 UNITS 276-325 4 UNITS 276-325 7 UNITS 276-325 8 UNITS 276-325 9 UNITS 326-375 5 UNITS 326-375 9 UNITS 326-375 10 UNITS 326-375 11 UNITS >375 CONTACT MD >375 CONTACT MD >375 CONTACT MD >375 CONTACT MD Allergies and Adverse Reactions: Allergies Allergy/AdvReac Type Severity Reaction Status Date / Time butalbital [From [facility]] Allergy Unknown Verified 10/14/16 14:36 Sulfa (Sulfonamide Allergy Unknown Verified 08/06/17 09:38 Antibiotics) sulfamethoxazole Allergy Unknown Verified 10/14/16 14:36 [From ] trimethoprim [From ] Allergy Unknown Verified 10/14/16 14:36 venom-honey bee Allergy Anaphylaxis Verified 10/14/16 14:36 [bee venom (honey bee)] - Medications New Prescriptions: Ciprofloxacin HCl [Cipro] 500 mg PO DAILY 10 Days #10 tablet Saccharomyces Boulardii [Florastor] 250 mg PO BID 20 Days #40 capsule - Diet Type: Geriatric Texture: Regular Liquids: Thin May have monthly special meal: Yes - Therapies | Activity Therapy: Evaluation | Treat if indicated: Speech, PT, OT Rehabilitation Potential: Maximize functional status, Return to independent living, Maintain present ADL Functional Weight Bearing: Full Weight Assistance Devices: Wheelchair, Walker"
[2017-10-20] MEDS ORDERED: INSULIN ASPART 300 UNIT/3 ML PEN SUBQ SCH ×2 (14:14→15:00)
[2017-10-20] MEDS: AMPICILLIN/SULBACTAM 3 GM in SODIUM CHLORIDE 0.9% MINIBAG 100 ML IV SCH (14:29)
[2017-10-20] MEDS: FUROSEMIDE 40 MG/4 ML VIAL IVP SCH (14:37)
--- NOTE | 2017-10-20 16:17 | PROVIDER PROGRESS NOTE ---
Subjective - Prog Note Date Prog Note Date: 10/20/17 Prog Note Time: 10:00 - Subjective Pt reports feeling: Improved, No change Subjective: Sierra has no complaints and is enjoying a visit from her friend, Harriet. She denies SOB, chest pain, N/V or a new cough. She no longer requires oxygen. Current Medications - Current Medications Current Medications: Active Medications Acetaminophen (Tylenol) 650 mg PO Q4HR PRN PRN Reason: Pain 1 to 4 Last Admin: 10/21/17 02:21 Dose: 650 mg Albuterol () 2.5 mg INH RTQ4H PRN PRN Reason: Wheezing Last Admin: 10/19/17 00:15 Dose: 2.5 mg Albuterol/Ipratropium (Duoneb) 3 ml INH RTQID BULL Last Admin: 10/21/17 07:09 Dose: 3 ml Amlodipine Besylate (Norvasc) 5 mg PO DAILY [facility] Last Admin: 10/20/17 08:25 Dose: 5 mg Benzonatate (Tessalon) 100 mg PO TID PRN PRN Reason: Cough Last Admin: 10/20/17 08:27 Dose: 100 mg Diphenhydramine HCl (Benadryl) 25 mg PO QPM PRN PRN Reason: Insomnia Last Admin: 10/20/17 00:57 Dose: 25 mg Famotidine (Pepcid) 20 mg PO DAILY [facility] Last Admin: 10/20/17 08:23 Dose: 20 mg Furosemide (Lasix Inj 40 Mg Vial) 40 mg IVP DAILY [facility] Last Admin: 10/20/17 14:37 Dose: 40 mg Guaifenesin (Robitussin Dm) 10 ml PO Q6HR PRN PRN Reason: Cough Last Admin: 10/20/17 23:50 Dose: 10 ml Hydralazine HCl (Apresoline) 25 mg PO QID [facility] Last Admin: 10/20/17 22:05 Dose: 25 mg Hydrochlorothiazide (Hydrodiuril) 25 mg PO DAILY [facility] Last Admin: 10/20/17 08:24 Dose: 25 mg Ampicillin Sodium/Sulbactam (Sodium 3 gm/ Sodium Chloride) 100 mls @ 200 mls/ hr IV Q24H [facility] Last Infusion: 10/20/17 15:00 Dose: Infused Insulin Aspart (Novolog) 3 - 11 unit SUBQ 0800,1200,1700,2100 [facility] PRN Reason: Protocol Last Admin: 10/20/17 22:06 Dose: 5 unit Insulin Aspart (Novolog) 7 unit SUBQ TIDWM [facility] Last Admin: 10/20/17 17:57 Dose: 7 unit Insulin Glargine (Lantus Solostar) 10 unit SUBQ DAILY [facility] Last Admin: 10/20/17 08:29 Dose: 10 unit Lidocaine (Lidoderm Patch) 1 patch TOP DAILY [facility] Last Admin: 10/20/17 08:22 Dose: 1 patch Metoprolol Succinate (Toprol Xl) 25 mg PO DAILY [facility] Polyethylene Glycol (Miralax) 17 gm PO DAILY [facility] Last Admin: 10/20/17 08:28 Dose: Not Given Prednisone (Deltasone) 20 mg PO DAILYWM [facility] Prochlorperazine Edisylate (Compazine Inj) 10 mg IVP Q6HR PRN PRN Reason: Nausea / Vomiting Last Admin: 10/17/17 11:00 Dose: 10 mg Saccharomyces Boulardii (Florastor) 250 mg PO BIDWM [facility] Last Admin: 10/20/17 17:55 Dose: 250 mg Sodium Chloride (Normal Saline Flush 0.9%) 10 ml IVP PRN PRN PRN Reason: NEEDED PER PROVIDER ORDERS Last Admin: 10/20/17 08:23 Dose: 10 ml Sodium Chloride (Normal Saline Flush 0.9%) 10 ml IVP Q8HR [facility] Last Admin: 10/20/17 23:50 Dose: 10 ml Throat Lozenges (Cepacol) 1 lozenge MM Q2HR PRN PRN Reason: Throat pain Insulin Glargine,Hum.rec.anlog [Lantus Solostar] 20 units SUBQ QPM 07/06/14 Simvastatin [Zocor] 20 mg PO QPM 07/06/14 Insulin Glulisine [Apidra] 6 unit SUBQ BIDWM 01/20/16 Doxazosin [Cardura] 4 mg PO QPM 10/15/17 Insulin Glulisine [Apidra Solostar] 8 unit SUBQ 1200 10/15/17 Lisinopril 20 mg PO BID 10/15/17 Nitroglycerin 0.1 mg/Hr Patch [Nitro-Dur] 1 each TOP DAILY 10/15/17 amLODIPine [Norvasc] 5 mg PO QPM 10/15/17 hydrALAZINE [Apresoline] 25 mg PO QID 10/15/17 hydroCHLOROthiazide [Hydrodiuril] 25 mg PO DAILY 10/15/17 Objective - Vital Signs/Intake & Output Reviewed Vital Signs: Yes Vital Signs: Vital Signs x48h Temp Pulse Pulse Resp BP Pulse Ox 10/20/17 16:07 36.8 C 104 H 24 125/68 93 10/20/17 16:00 113 H 16 10/20/17 11:20 106 H 16 10/20/17 09:46 36.6 C 116 H 19 136/81 H 94 10/20/17 08:56 36.6 C 121 H 20 131/75 H 97 Intake & Output: Intake & Output 10/17/17 10/18/17 10/19/17 10/20/17 23:59 23:59 23:59 23:59 Intake Total 1400 1230 2070 905 Output Total 650 700 500 Balance 563 827 8399 905 - Objective General Appearance: positive: No acute distress, Alert Eyes Bilateral: positive: Normal inspection, PERRL ENT: positive: ENT inspection nml, Pharynx nml, Dry mucous membranes Neck: positive: Nml inspection, Thyroid nml, No JVD, Trachea midline Respiratory: positive: Chest non-tender, No respiratory distress, Wheezes, Other (scattered crackles.) Cardiovascular: positive: No gallop, Irregularly irregular, Systolic murmur, Decreased pulse(s) Peripheral Pulses: 1+ Radial (R), 1+ Radial (L) Abdomen: positive: Non-tender, No organomegaly, Nml bowel sounds Back: positive: Nml inspection Skin: positive: No rash, Warm, Dry Extremities: positive: Non-tender, Full ROM, Nml appearance, No pedal edema Neurologic/Psychiatric: positive: Oriented x3, CN's nml (2-12), Motor nml, Sensation nml, Depressed mood/affect Reflexes: Bicep (R): 2+, Bicep (L): 2+ - Lab Results Fish Bones: 10/20/17 04:20 10/20/17 04:20 Other Labs: Lab Results x24hrs 10/20/17 10/20/17 10/20/17 Range/Units 13:22 11:29 08:10 WBC (4.8-10.8) x10^3/uL RBC (4.20-5.40) 10^6/uL Hgb (12.0-16.0) g/dL Hct (37.0-47.0) % MCV (81.0-99.0) fL MCH (27.0-31.0) pg MCHC (32.0-36.0) g/dL RDW (12.0-15.0) % Plt Count (130-450) 10^3/uL MPV (7.9-10.8) fL Neut # Lymph # Bertie # Eos # Baso # Absolute Nucleated RBC Total Counted Band Neuts % (Manual) (0 - 10) % Abnorm Lymph % (Manual) % Metamyelocytes % ( - 0) % Nucleated RBC % Neutrophils # (Manual) (1.5-6.6) 10^3/uL Lymphocytes # (Manual) (1.5-3.5) 10^3/uL Monocytes # (Manual) (0.0-1.0) 10^3/uL Eosinophils # (Manual) (0-0.7) 10^3/uL Basophils # (Manual) (0-0.1) 10^3/uL Differential Comment Platelet Estimate (NORMAL) RBC Morph Micro Appear (NORMAL) Sodium (135-145) mmol/L Potassium (3.5-5.0) mmol/L Chloride (101-111) mmol/L Carbon Dioxide (21-32) mmol/L Anion Gap (6-13) BUN (6-20) mg/dL Creatinine (0.4-1.0) mg/dL Estimated GFR (MDRD) (>89) Glucose (70-100) mg/dL POC Whole Bld Glucose 450 H 498 H 280 H (70 - 100) mg/dL Calcium (8.5-10.3) mg/dL Total Bilirubin (0.2-1.0) mg/dL AST (10-42) IU/L ALT (10-60) IU/L Alkaline Phosphatase (42-121) IU/L B-Natriuretic Peptide (5-100) pg/mL Total Protein (6.7-8.2) g/dL Albumin (3.2-5.5) g/dL Globulin (2.1-4.2) g/dL Albumin/Globulin Ratio (1.0-2.2) 10/20/17 10/20/17 10/20/17 Range/Units 04:20 04:20 04:20 WBC 8.9 (4.8-10.8) x10^3/uL RBC 3.47 L (4.20-5.40) 10^6/uL Hgb 10.1 L (12.0-16.0) g/dL Hct 30.7 L (37.0-47.0) % MCV 88.5 (81.0-99.0) fL MCH 29.1 (27.0-31.0) pg MCHC 32.9 (32.0-36.0) g/dL RDW 15.7 H (12.0-15.0) % Plt Count 136 (130-450) 10^3/uL MPV 8.3 (7.9-10.8) fL Neut # Not Reportable Lymph # Not Reportable Bertie # Not Reportable Eos # Not Reportable Baso # Not Reportable Absolute Nucleated RBC Not Reportable Total Counted 100 Band Neuts % (Manual) 10 (0 - 10) % Abnorm Lymph % (Manual) 0 % Metamyelocytes % 1 H ( - 0) % Nucleated RBC % Not Reportable Neutrophils # (Manual) 7.6 H (1.5-6.6) 10^3/uL Lymphocytes # (Manual) 0.9 L (1.5-3.5) 10^3/uL Monocytes # (Manual) 0.4 (0.0-1.0) 10^3/uL Eosinophils # (Manual) 0.0 (0-0.7) 10^3/uL Basophils # (Manual) 0.0 (0-0.1) 10^3/uL Differential Comment MANUAL DIFFERENTIAL Platelet Estimate NORMAL (130-450,000) (NORMAL) RBC Morph Micro Appear NORMAL APPEARANCE (NORMAL) Sodium 134 L (135-145) mmol/L Potassium 3.5 (3.5-5.0) mmol/L Chloride 96 L (101-111) mmol/L Carbon Dioxide 21 (21-32) mmol/L Anion Gap 17.0 H (6-13) BUN 78 H (6-20) mg/dL Creatinine 2.6 H (0.4-1.0) mg/dL Estimated GFR (MDRD) 17 L (>89) Glucose 246 H (70-100) mg/dL POC Whole Bld Glucose (70 - 100) mg/dL Calcium 8.6 (8.5-10.3) mg/dL Total Bilirubin 0.9 (0.2-1.0) mg/dL AST 41 (10-42) IU/L ALT 23 (10-60) IU/L Alkaline Phosphatase 57 (42-121) IU/L B-Natriuretic Peptide 2076 H (5-100) pg/mL Total Protein 6.3 L (6.7-8.2) g/dL Albumin 2.7 L (3.2-5.5) g/dL Globulin 3.6 (2.1-4.2) g/dL Albumin/Globulin Ratio 0.8 L (1.0-2.2) 10/19/17 Range/Units 20:06 WBC (4.8-10.8) x10^3/uL RBC (4.20-5.40) 10^6/uL Hgb (12.0-16.0) g/dL Hct (37.0-47.0) % MCV (81.0-99.0) fL MCH (27.0-31.0) pg MCHC (32.0-36.0) g/dL RDW (12.0-15.0) % Plt Count (130-450) 10^3/uL MPV (7.9-10.8) fL Neut # Lymph # Bertie # Eos # Baso # Absolute Nucleated RBC Total Counted Band Neuts % (Manual) (0 - 10) % Abnorm Lymph % (Manual) % Metamyelocytes % ( - 0) % Nucleated RBC % Neutrophils # (Manual) (1.5-6.6) 10^3/uL Lymphocytes # (Manual) (1.5-3.5) 10^3/uL Monocytes # (Manual) (0.0-1.0) 10^3/uL Eosinophils # (Manual) (0-0.7) 10^3/uL Basophils # (Manual) (0-0.1) 10^3/uL Differential Comment Platelet Estimate (NORMAL) RBC Morph Micro Appear (NORMAL) Sodium (135-145) mmol/L Potassium (3.5-5.0) mmol/L Chloride (101-111) mmol/L Carbon Dioxide (21-32) mmol/L Anion Gap (6-13) BUN (6-20) mg/dL Creatinine (0.4-1.0) mg/dL Estimated GFR (MDRD) (>89) Glucose (70-100) mg/dL POC Whole Bld Glucose 343 H (70 - 100) mg/dL Calcium (8.5-10.3) mg/dL Total Bilirubin (0.2-1.0) mg/dL AST (10-42) IU/L ALT (10-60) IU/L Alkaline Phosphatase (42-121) IU/L B-Natriuretic Peptide (5-100) pg/mL Total Protein (6.7-8.2) g/dL Albumin (3.2-5.5) g/dL Globulin (2.1-4.2) g/dL Albumin/Globulin Ratio (1.0-2.2) - Diagnostic Imaging Diagnostic Imaging Results: positive: Final report reviewed Assessment/Plan - Problem List (1) CHF (congestive heart failure) Impression: Grade 2 DD on ECHO, EF 70-75% was noted on most recent echocardiogram. Patient is on norvasc, lisinopril, hydralazine and lasix at home. BNP trending up since admission 318->1432, then given lasix with PRBCs on 10/16 and BNP down to 596. BNP continues to be elevated at 2076. A daily dose of IV lasix 40mg, was ordered. Plan: Continue toprol XL, hold PAOLA, and lasix. We will continue to monitor labs, daily weights and I/O's. Patient has gone past her usual 96 hour hospital stay due to complications such as acute IA, pneumonia, UTI and poor PO intake. She was supposed to be medically cleared, but has a continued elevated BNP that has required IV treatment. She will likely be medically appropriate for discharge; as long as her fluid balance stays tolerable. Q Qualifiers: Congestive heart failure type: diastolic Congestive heart failure chronicity: acute on chronic Qualified Code(s): I50.33 - Acute on chronic diastolic (congestive) heart failure (2) Community acquired pneumonia Impression: Patient presented with complaints of N/V. Abdominal CT revealed BLL consolidation R>L c/w pneumonia. Patient has had on and off fevers, despite antibiotics, increased breathing efforts, SOB and oxygen needs. Antibiotic changed to Unasyn IV. Plan: Continue Unasyn IV, Duonebs q6, PRN albuterol, O2 to keeps sats >92, wean as tolerated, MOBILIZE to chair BID, and encourage cough and deep breathing. Qualifiers: Laterality: left Lung location: lower lobe of lung Qualified Code(s): J18.1 - Lobar pneumonia, unspecified organism (3) E. coli UTI Impression: Asymptomatic UTI noted on admission. Cultures grew out + E.Coli. Final culture sensitivities show treatment with Ciprofloxacin is recommended. Plan: Patient will start Ciprofloxacin upon discharge. (4) Diabetes mellitus type 2 in nonobese Impression: Patient was on lantus at home, but was having low AM blood sugars. Lantus held and BG controlled. PO intake probably not adequate. Now patient has had a spike in blood sugars due to IV steroid use. IV steroids were discontinued and patient was continued on a low dose of prednisone. Plan: Continue low dose SSI, carb controlled diet, and lantus was resumed at her home dose. (5) NSTEMI (non-ST elevated myocardial infarction) Impression: Upon admission troponin 0.06, no chest pain. Troponin max of 0.56, no ST changes on EKG. Case d/w primary cards and feels medical management is ideal. BB added and patient tolerated well thus far. Plan: Continue toprol-xl 12.5mg w/ parameters. We will continue to hold Eliquis as per cardiology recommendation. Patient should plan to follow up with primary [facility] feller 1-2wk from discharge.
[2017-10-21] MEDS: ACETAMINOPHEN 325 MG TABLET PO PRN (02:21)
[2017-10-21] MEDS: IPRATROPIUM/ALBUTEROL 3 ML NEB INH SCH (07:09)
[2017-10-21 07:44] VITALS: BP 168/61
[2017-10-21] MEDS ORDERED: predniSONE 20 MG TABLET PO SCH (08:00)
--- NOTE | 2017-10-21 08:09 | DISCHARGE SUMMARY ---
Discharge Summary Admit Date: 10/15/17 Discharge Date: 10/21/17 Discharging Provider: CORA Rogers Primary Care Provider: Tabitha Kingston Code Status: Attempt Resuscitation Condition at Discharge: Good Discharge Disposition: SNF DC/Xfer Discharge Facility [facility]: [facility] - DIAGNOSES Admission Diagnoses: Nausea with vomiting, unspecified (R11.2) Essential (primary) hypertension (I10) Heart failure, unspecified (I50.9) Discharge Diagnoses with Status of Each Condition: Diastolic CHF, acute on chronic (I50.33) chronic, stable, all home medications CAP (community acquired pneumonia) (J18.9) new on this admission, treatment to continue. E-coli UTI (N39.0) new on this admission, treatment to continue. Diabetes mellitus type 2 in nonobese (E11.9) chronic, stable. Intractable nausea and vomiting (R11.2) resolved. NSTEMI (non-ST elevated myocardial infarction) (I21.4) new on this admission, treatment to continue. Anemia due to blood loss, acute (D62) resolved, stable. - HPI History of Present Illness: Ayde Boudreaux is an 87-year old female with an extensive past medical history of DM type 2, hypertension, hyperlipidemia, sciatica, mild aortic stenosis, CKD stage 4-sees nephrology, and CHF. The patient pressed her life line at around 2AM with complaints of nausea and vomiting and was brought to the ED for further evaluation. She has been sick since June of 2017 and most recently got an eusthasian tube implanted in her right ear for recurrent infections. She was found to be febrile with a temp max of 37.9 in the ED, hypertensive with a blood pressure of 154/94, and tachycardic with a heart rate of 103. Her WBC was actually low at 4.6. Patient will be admitted to inpatient for further treatment of nausea, chest pain work up including serial troponins and evaluation of febrile status. - HOSPITAL COURSE Hospital Course: The following diagnoses were prevalent during this hospital stay: (1) CHF (congestive heart failure)- An echocardiogram was completed on this admission and showed; Grade II diastolic dysfunction, EF 70-75%. Patient is on norvasc, lisinopril, hydralazine and lasix at home. BNP trending up since admission at which time it was 318, per chart review she has been 2600 at other times. The patient was given lasix with PRBCs on 10/16. BNP went down to 596. BNP continues to be elevated at 2076 for the past several days, but patient is continuing with a daily dose of IV lasix 40mg, that was transitioned to her usual home dose at the time of discharge. Patient was started on toprol XL, which was adjusted to 25mg. Her labs were continuously monitored, daily weights and I/O's were taken. Patient has gone past her usual 96 hour hospital stay due to complications such as acute CT, pneumonia, UTI and poor PO intake. (2) Community acquired pneumonia- Patient presented with complaints of N/V. Abdominal CT revealed bilateral lower lobe consolidation; suspicious for pneumonia. Patient has had on and off fevers, despite antibiotics, so antibiotics were increased to Unasyn IV. Patient had times of increased breathing efforts, SOB and oxygen needs, but this subsided at the time of discharge and she no longer needed oxygen supplementation. Patient was seen by physical therapy and nursing staff promoted mobility from the bed to the chair BID, and encouraged cough and deep breathing. Patient was transitioned to Cipro PO to be continued at the SNF. (3) E. coli UTI- Patient did not complain of dysuria on admission, but was noted to have a + UTI. Cultures grew out + E.Coli. Final culture sensitivities show treatment with Ciprofloxacin is recommended. Patient was started on Ciprofloxacin upon discharge. (4) Diabetes mellitus type 2 in nonobese- Patient was on lantus at home, but was having low AM blood sugars. Lantus was held and blood sugars became diet controlled. Patient may have had poor PO intake just prior to admission as her primary complaint was nausea and vomiting. Patient was placed on IV steroids for persistent cough, and consequently had a spike in blood sugars. IV steroids were discontinued and patient was continued on a low dose of prednisone to be given for 3 more days. Patient was resumed on her home doses of insulin both SSI and Lantus. Recommend a carb controlled diet (5) Intractable nausea and vomiting- Upon transport to the nursing floor patient was noted to be dry heaving, with ongoing nausea. Per chart review, patient was having this in the middle of the night and this is also her primary complaint to me at the time of admission. Patient was treated with anti-emetics and gentle IVFs. This finally resolved at the time of discharge. (6) NSTEMI (non-ST elevated myocardial infarction)- Patient had an scantly elevated troponin on admission, of 0.06, that increased to 0.10, and this AM was "a rule in" CT at 0.56. Cardiology, Dr. Woods was contacted who spoke with patient's primary CHF doctor, Dr. Cabrera Hernandez. A consensus was to medically manage, add a small dose of metoprolol. I mentioned to Dr. Woods that patient is now anemic, and is suspected to be having a GI bleed, so Eliquis was placed on hold. He informed me that he would put a note in the chart and update Dr. Hernandez. The next intervention may be an outpatient stress test, although she has a high pre-test probability of being positive. This would not yield any beneficial results since patient is not a candidate for angiograms given the nephrotoxic possibilities, and the likelihood of the patient progressing to a dialysis dependent state. Patient has stage 4 CKD. Patient was started on metoprolol at 12.5mg daily, that was increased to 25mg XL by the time of discharge. She was continually monitored on telemetry monitoring with serial troponins. (7) Anemia due to blood loss, acute- Patient was noted to have a hemoglobin of 11.1 one year ago. Upon admission to the ED, her hemoglobin was decreased at 8.5, and the morning after admission it was decreased to 6.9. Eliquis was stopped. Patient was given 2 units of PRBCs, diuresis, and contact was made with Dr. Hebert, general surgery. It was concluded that the Eliquis was the likely culprit in causing the patient's diverticulosis to slough. Disposition: The patient was taken by private car to an accepting facility in [place] for strength training and rehabilitation in hopes that the patient would eventually return home. Prescriptions were faxed to SNF, and this discharge note will be forwarded to CHF team, PCP and nephrology. - ALLERGIES Allergies/Adverse Reactions: Allergies Allergy/AdvReac Type Severity Reaction Status Date / Time butalbital [From Fiorinal] Allergy Unknown Verified 10/14/16 14:36 Sulfa (Sulfonamide Allergy Unknown Verified 08/06/17 09:38 Antibiotics) sulfamethoxazole Allergy Unknown Verified 10/14/16 14:36 [From Septra] trimethoprim [From ] Allergy Unknown Verified 10/14/16 14:36 venom-honey bee Allergy Anaphylaxis Verified 10/14/16 14:36 [bee venom (honey bee)] - MEDICATIONS Home Medications: Ambulatory Orders Medication Instructions Recorded Confirmed Insulin Glargine,Hum.rec.anlog 20 units SUBQ QPM 07/06/14 10/15/17 [Lantus Solostar] Simvastatin [Zocor] 20 mg PO QPM 07/06/14 10/15/17 Benzonatate [Tessalon] 100 mg PO TID PRN capsule 10/20/17 Ciprofloxacin HCl [Cipro] 500 mg PO DAILY 10 Days #10 tablet 10/20/17 Metoprolol Succinate [Toprol Xl] 25 mg PO DAILY tablet 10/20/17 predniSONE [Deltasone] 20 mg PO DAILYWM 3 Days #3 tablet 10/20/17 Doxazosin [Cardura] 4 mg PO QPM #30 10/21/17 10/15/17 Furosemide [Lasix] 80 mg PO DAILY #30 10/21/17 10/15/17 Insulin Glulisine [Apidra Solostar] 8 unit SUBQ 1200 #1 10/21/17 10/15/17 Insulin Glulisine [Apidra] 6 unit SUBQ BIDWM #1 10/21/17 10/15/17 Lisinopril 20 mg PO BID #30 10/21/17 10/15/17 Nitroglycerin 0.1 mg/Hr Patch 1 each TOP DAILY #30 10/21/17 10/15/17 [Nitro-Dur] Saccharomyces Boulardii [Florastor] 250 mg PO BID 20 Days #40 capsule 10/21/17 amLODIPine [Norvasc] 5 mg PO QPM #30 10/21/17 10/15/17 hydrALAZINE [Apresoline] 25 mg PO QID #120 10/21/17 10/15/17 hydroCHLOROthiazide [Hydrodiuril] 25 mg PO DAILY #30 10/21/17 10/15/17 - PHYSICAL EXAM AT DISCHARGE General Appearance: positive: No acute distress, Alert Eyes Bilateral: positive: Normal inspection ENT: positive: ENT inspection nml, Pharynx nml, No signs of dehydration Neck: positive: Nml inspection, Thyroid nml, No JVD, Trachea midline, Stiff neck Respiratory: positive: Chest non-tender, No respiratory distress, Breath sounds nml Cardiovascular: positive: No gallop, Irregularly irregular, Systolic murmur, Decreased pulse(s) Peripheral Pulses: positive: 1+ Abdomen: positive: Non-tender, No organomegaly, Nml bowel sounds, No distention Back: positive: Nml inspection Skin: positive: No rash, Warm, Dry Extremities: positive: Non-tender, Full ROM, Nml appearance, Pedal edema Neurologic/Psychiatric: positive: Oriented x3, CN's nml (2-12), Motor nml, Sensation nml, Weakness, Depressed mood/affect Reflexes: Bicep (R): 2+, Bicep (L): 2+ - LABS Result Diagrams: 10/20/17 04:20 10/20/17 04:20 - DIAGNOSTIC IMAGING Diagnostic Imaging Results: Final report reviewed Diagnostic Imaging Results Comments: EXAM: CHEST RADIOGRAPHY EXAM DATE: 10/15/2017 04:34 AM. CLINICAL HISTORY: Cough, dyspnea. COMPARISON: 06/19/2017. TECHNIQUE: 2 views. FINDINGS: Lungs/Pleura: Large lung volumes. No alveolar consolidation or pleural effusion seen. No pneumothorax. Mediastinum: Heart size upper normal. Aortic atherosclerosis. Other: Osteopenia. Rotator cuff atrophy in the shoulders. IMPRESSION: 1. Large lung volumes and borderline heart size. EXAM: CT ABDOMEN AND PELVIS EXAM DATE: 10/15/2017 09:07 AM. CLINICAL HISTORY: Nausea and vomiting. COMPARISONS: None. TECHNIQUE: Routine helical CT imaging was performed through the abdomen and pelvis. IV contrast: None. Enteric contrast: No. Reconstructions: Coronal and sagittal. In accordance with CT protocol optimization, one or more of the following dose reduction techniques were utilized for this exam: automated exposure control, adjustment of mA and/or KV based on patient size, or use of iterative reconstructive technique. FINDINGS: Lung Bases: Patchy consolidation at the lung bases bilaterally most pronounced at the right lower lobe and to a lesser degree the right middle and left lower lobe, suggesting pneumonia. Liver: Nodular contour suggesting cirrhosis. No convincing focal lesion. Gallbladder/Bile Ducts: Tiny calcified dependent gallstone. No secondary signs of inflammation or evidence of ductal enlargement. Spleen: Normal. Pancreas: Normal. Adrenal Glands: Normal. Kidneys: No hydronephrosis. 8 mm exophytic right lower pole renal cortical hypodensity, indeterminate by noncontrast CT although possibly cyst. Ultrasound correlation suggested. Peritoneal Cavity/Bowel: No free air or free fluid. Scattered primarily sigmoid colonic diverticulosis. No evidence of obstruction. Appendix is not clearly visualized; no pericecal inflammatory changes are evident. Pelvic Organs: Urinary bladder is decompressed. Uterus is absent. Ovaries are not identified and may be absent. Vasculature: No aneurysms or other significant abnormality. Fairly diffuse atherosclerotic calcification of the aorta. Bones: No definite acute fracture or suspicious bony lesion. Large superior endplate Schmorl's node and minimal central depression at L2. Other: Small epigastric fat-containing ventral hernia. IMPRESSION: 1. Bibasal pulmonary consolidation most pronounced at the right lower lobe, consistent with pneumonia. 2. Cirrhosis. 3. Cholelithiasis. 4. Diverticulosis. 5. Indeterminate 8 mm right lower pole renal cortical hypodensity. Ultrasound correlation suggested. 6. Other findings as noted above. RENAL ULTRASOUND: 10/17/2017 CLINICAL INDICATION: Acute on chronic renal disease, possible cyst on CT. TECHNIQUE: Real-time scanning was performed with manufacturers service representative static images obtained. FINDINGS: Renal ultrasound was attempted. The patient was unable to comply with breathing instructions, due to coughing, and image quality is degraded by breathing motion. The right kidney measures 8.9 x 4.5 x 4.0 cm. Renal cortical echotexture is increased. A 1 cm cyst is noted in the lower pole, but this does not correlate with the exophytic lesion identified on CT. No exophytic lesion is identified on ultrasound. No hydronephrosis or definite solid renal lesion is appreciated. The left kidney measures 8.8 x 5.0 x 4.8 cm. Renal echogenicity is increased. No hydronephrosis, definite solid renal lesion, or perinephric collection is seen. The urinary bladder is decompressed. IMPRESSION: LIMITED EXAMINATION, DUE TO PATIENT'S INABILITY TO COMPLY WITH BREATHING INSTRUCTIONS. NO DEFINITE SONOGRAPHIC CORRELATE TO THE EXOPHYTIC LESION - FOLLOW UP Follow Up: Disposition: 03 SNF DC/Xfer Condition: Good SNF Transition Orders: Admit to: [facility] under the care of Tabitha Kingston Discharge Diagnosis: Pneumonia, UTI, acute on chronic CHF, DM type 2-insulin dependent, NSTEMI. Medicare Certification: I certify that [facility] is medically necessary on a continuing basis for any of the conditions for which she/he is receiving care during hospitalization. Notify PCP of admission and forward orders to primary provider for signature. Weight on admission and weekly. Call PCP immediately if weight increases by 10 pounds or if patient develops dyspnea, chest pain/tightness or edema. House Bowel Program: yes If no BM after 2 days, nurse may give M.O.M. 30ml PO PRN and /or ducolax Supp 1 CT and /or JANUSZ 250mg P.O., and/or senna 1-2 tabs PO. On day 3 nurse may give repeat above order until residents constipation is resolved. Immunizations: Annual Influenza Vaccine: yes; (between Apr 28 and November 25. ) Unless allergy or already given Two-Step PPD: yes; per [facility] [id number] or appropriate documentation of approved exceptions Treatments & Other Orders: PT/OT and speech therapy if indicated. Patient has not required any swallowing tests. There were no procedures or interventions completed while in our care. Oxygen Orders: 1-4L nasal cannula, titrate to keep oxygen at least 90%. Lab Tests or X-Rays Orders: Should draw at least weekly electrolytes and CBC labs. Orthopedic Orders: N/A. Medications: PLEASE REFER TO THE DISCHARGE MEDICATION LIST. - TIME SPENT Time Spent in Discharge (Minutes): 60
[2017-10-21] MEDS: hydroCHLOROthiazide 25 MG TABLET PO SCH (08:41)
[2017-10-21] MEDS: SACCHAROMYCES BOULARDII 250 MG CAPSULE PO SCH (08:41)
[2017-10-21] MEDS: POLYETHYLENE GLYCOL 3350 17 GM PACKET PO SCH (08:41)
[2017-10-21] MEDS: hydrALAZINE 25 MG TABLET PO SCH (08:41)
[2017-10-21] MEDS: amLODIPine 5 MG TABLET PO SCH (08:41)
[2017-10-21] MEDS: LIDOCAINE PATCH 5% TOP SCH (08:42)
[2017-10-21] MEDS: METOPROLOL SUCCINATE 25 MG TABLET PO SCH ×2 (08:42→08:55)
[2017-10-21] MEDS: FAMOTIDINE 20 MG TABLET PO SCH (08:42)
[2017-10-21] MEDS: INSULIN GLARGINE 300 UNIT/3 ML PEN SUBQ SCH (08:43)
[2017-10-21] MEDS: INSULIN ASPART 300 UNIT/3 ML PEN SUBQ SCH ×2 (08:44→08:45)
[2017-10-21] MEDS: FUROSEMIDE 40 MG/4 ML VIAL IVP SCH (08:49)
[2017-10-21] MEDS: SODIUM CHLORIDE FLUSH 0.9% 10 ML SYRINGE IVP PRN (08:51)
[2017-10-21] MEDS ORDERED: amLODIPine 5 MG TABLET PO ONE (08:53)
[2017-10-21] MEDS ORDERED: CIPROFLOXACIN 250 MG TABLET PO SCH (09:00)
[2017-10-21] MEDS: guaiFENesin/DEXTROMETHORPHAN 10 ML UDC PO PRN (10:58)
[2017-10-22] MEDS ORDERED: METOPROLOL SUCCINATE 25 MG TABLET PO SCH (09:00)
[2017-10-22] MEDS ORDERED: FUROSEMIDE 40 MG/4 ML VIAL IVP SCH (09:00)
== END 2017-10-21 11:10 | DRG 280 ==
LOC: EDUNIT# → ED 02:59 → SUPCPDRO 02:59 → MS3 06:39
PROVIDERS: ADMIT Internal Medicine; ATTEND Nurse Practitioner
PROC: 30253N1 (ICD-10-PCS; principal; 2017-10-16)
DX: R11.2 Nausea with vomiting, unspecified (principal); R07.9 Chest pain, unspecified; I21.4 Non-ST elevation (NSTEMI) myocardial infarction; I11.0 Hypertensive heart disease with heart failure; I50.9 Heart failure, unspecified; I50.33 Acute on chronic diastolic (congestive) heart failure; J18.9 Pneumonia, unspecified organism; N39.0 Urinary tract infection, site not specified; D62 Acute posthemorrhagic anemia; N18.4 Chronic kidney disease, stage 4 (severe); I13.0 Hypertensive heart and chronic kidney disease with heart failure and stage 1 through stage 4 chronic kidney disease, or unspecified chronic kidney disease; K92.2 Gastrointestinal hemorrhage, unspecified; N17.9 Acute kidney failure, unspecified; B96.20 Unspecified Escherichia coli [E. coli] as the cause of diseases classified elsewhere; E11.9 Type 2 diabetes mellitus without complications; E78.5 Hyperlipidemia, unspecified; I35.0 Nonrheumatic aortic (valve) stenosis; E11.22 Type 2 diabetes mellitus with diabetic chronic kidney disease; M54.9 Dorsalgia, unspecified; G89.29 Other chronic pain; Z83.3 Family history of diabetes mellitus
CPT/HCPCS: 36415; 71046; 74176; 76770; 80048; 80053; 80076; 81001; 81003; 82270; 82550; 82553; 82570; 83036; 83605; 83735; 83880; 84100; 84300; 84443; 84484; 85014; 85018; 85025; 86850; 86900; 86901; 86920; 87040; 87070; 87086; 87205; 87275; 87276; 93005; 93306; 94640; 96361; 96374; 96376; 99284

== ENCOUNTER 2017-12-11 10:49 | Outpatient (CLI) | payer MEDICARE, OTHER | END 2017-12-11 10:50 | disposition critical access hospital (66) | LOC: EMS 10:49 | PROVIDERS: ATTEND Surgery | DX: R42 Dizziness and giddiness (principal); H53.8 Other visual disturbances | CPT/HCPCS: A0425; A0429 ==

== ENCOUNTER 2017-12-11 11:10 | Emergency (ER) | payer MEDICARE, OTHER ==
[2017-12-11 11:59] LABS: BASOPHILS % (AUTO) 0.4 %; EOSINOPHILS # (AUTO) 0.1 10^3/uL (0.0-0.7); HGB - HEMOGLOBIN 10.3 g/dL (12.0-16.0); LYMPHOCYTES # (AUTO) 1.1 10^3/uL (1.5-3.5); LYMPHOCYTES % (AUTO) 26.7 %; MEAN CORPUSCULAR HEMOGLOBIN 31.3 pg (27.0-31.0); MEAN CORPUSCULAR HGB CONC 34.3 g/dL (32.0-36.0); MEAN CORPUSCULAR VOLUME 91.2 fL (81.0-99.0); MEAN PLATELET VOLUME 7.5 fL (7.9-10.8); MONOCYTES # (AUTO) 0.4 10^3/uL (0.0-1.0); NEUTROPHILS # (AUTO) 2.5 10^3/uL (1.5-6.6); NEUTROPHILS % (AUTO) 61.9 %; PLT - PLATELET COUNT 147 10^3/uL (130-450); RED BLOOD COUNT 3.28 10^6/uL (4.20-5.40); RED CELL DISTRIBUTION WIDTH 17.3 % (12.0-15.0); WHITE BLOOD COUNT 4.1 x10^3/uL (4.8-10.8)
--- NOTE | 2017-12-11 12:44 | CT Report ---
EXAM: CT HEAD EXAM DATE: 12/11/2017 12:36 PM. CLINICAL HISTORY: Vision changes. COMPARISON: None. TECHNIQUE: Multiaxial CT images were obtained from the foramen magnum to the vertex. Reformats: Coron al. IV contrast: None. In accordance with CT protocol optimization, one or more of the following dose reduction techniques w ere utilized for this exam: automated exposure control, adjustment of mA and/or KV based on patient s ize, or use of iterative reconstructive technique. FINDINGS: Parenchyma: No intraparenchymal hemorrhage. No evidence of mass, midline shift, or CT findings of acu te infarction. Monteiro-white differentiation is distinct. Diffuse chronic microangiopathic white matter changes are evident. Extraaxial Spaces: Normal for age. No subdural or epidural collections identified. Ventricles: The ventricles and cortical sulci are enlarged, consistent with age-related tissue loss. Sinuses and orbits: Opacification of some right mastoid air cells which may represent mastoiditis, of indeterminate chronicity. Otherwise, the imaged paranasal sinuses, orbits, and mastoids show no sign ificant abnormality. Bones: No evidence of fracture or calvarial defect. Other: None. IMPRESSION: 1. Generalized age-related cortical atrophic changes without evidence of acute intracranial abnormali ty. 2. Possible right mastoiditis, of indeterminate chronicity. [facility] Referring Provider Line: [phone] SITE ID: [id number]
--- NOTE | 2017-12-11 12:44 | CT Preliminary Report ---
Exam: CT HEAD W/O IMPRESSION: 1. Generalized age-related cortical atrophic changes without evidence of acute intracranial abnormali ty. 2. Possible right mastoiditis, of indeterminate chronicity. [facility] SITE ID: [id number]
[2017-12-11 12:45] LABS: CALCIUM 8.4 mg/dL (8.5-10.3)
[2017-12-11] MEDS ORDERED: SODIUM CHLORIDE 0.9% 1,000 ML IV ONE (13:23)
--- NOTE | 2017-12-11 13:35 | ED Physician Documentation ---
History of Present Illness - Stated complaint Stated Complaint: VISION DISTURBANCE - Chief complaint Chief Complaint: Neuro - Additonal information Additional information: hx from EMS and pt pt was admitted in Sep now has rx for nitro patch she has noted recently that after applying her nitro patch she feels very weak and has blurry vision today she went to the clinic in the [place] feeling fine went home to change her nitro patch and promptly developed the same sx again - weak and blurred vision no focal weakness or trouble speaking no LUNDBERG CP AP no fever cough [facility] EMS called and found pt with low BP or 90 now her BP in better (s intervention) and her sx are gone Review of Systems Constitutional: denies: Fever, Chills Eyes: reports: Decreased vision Cardiac: denies: Chest pain / pressure Respiratory: denies: Dyspnea GI: denies: Abdominal Pain, Nausea, Vomiting, Diarrhea : denies: Dysuria Neurologic: reports: Generalized weakness. 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 HEENT: Cataracts - Present Medications Home Medications: Ambulatory Orders Medication Instructions Recorded Confirmed Insulin Glargine,Hum.rec.anlog 20 units SUBQ QPM 07/06/14 10/15/17 [Lantus Solostar] Simvastatin [Zocor] 20 mg PO QPM 07/06/14 10/15/17 Benzonatate [Tessalon] 100 mg PO TID PRN capsule 10/20/17 Ciprofloxacin HCl [Cipro] 500 mg PO DAILY 10 Days #10 tablet 10/20/17 Metoprolol Succinate [Toprol Xl] 25 mg PO DAILY tablet 10/20/17 predniSONE [Deltasone] 20 mg PO DAILYWM 3 Days #3 tablet 10/20/17 Doxazosin [Cardura] 4 mg PO QPM #30 10/21/17 10/15/17 Furosemide [Lasix] 80 mg PO DAILY #30 10/21/17 10/15/17 Insulin Glulisine [Apidra Solostar] 8 unit SUBQ 1200 #1 10/21/17 10/15/17 Insulin Glulisine [Apidra] 6 unit SUBQ BIDWM #1 10/21/17 10/15/17 Lisinopril 20 mg PO BID #30 10/21/17 10/15/17 Nitroglycerin 0.1 mg/Hr Patch 1 each TOP DAILY #30 10/21/17 10/15/17 [Nitro-Dur] Saccharomyces Boulardii [Florastor] 250 mg PO BID 20 Days #40 capsule 10/21/17 amLODIPine [Norvasc] 5 mg PO QPM #30 10/21/17 10/15/17 hydrALAZINE [Apresoline] 25 mg PO QID #120 10/21/17 10/15/17 hydroCHLOROthiazide [Hydrodiuril] 25 mg PO DAILY #30 10/21/17 10/15/17 Nitroglycerin 0.1 mg/Hr Patch 1 each TOP DAILY #30 patch 12/11/17 [Nitro-Dur] - Allergies Allergies/Adverse Reactions: Allergies Allergy/AdvReac Type Severity Reaction Status Date / Time butalbital [From Fiorinal] Allergy Unknown Verified 12/11/17 11:16 Sulfa (Sulfonamide Allergy Unknown Verified 12/11/17 11:16 Antibiotics) sulfamethoxazole Allergy Unknown Verified 12/11/17 11:16 [From Septra] trimethoprim [From Septra] Allergy Unknown Verified 12/11/17 11:16 venom-honey bee Allergy Anaphylaxis Verified 12/11/17 11:16 [bee venom (honey bee)] - Social History Does the pt smoke?: No Smoking Status: Never smoker Does the pt drink ETOH?: No Does the pt have substance abuse?: No - Immunizations Immunizations are current?: No - POLST Patient has POLST: No POLST Status: Limited Interventions (Per interview with family friend, Harriet and phone interview with grand daughter, Cary, patient does not want to be left on a ventilator and/or not kept alive if she may be brain .) PD ED PE NORMAL - Vitals Vital signs reviewed: Yes - General General: Alert and oriented X 3 - HEENT HEENT: PERRL, EOMI - Neck Neck: Supple, no meningeal sign - Cardiac Cardiac: RRR - Respiratory Respiratory: No respiratory distress, Clear bilaterally - Neuro Neuro: Alert and oriented X 3, documentum consultant 2-12 intact, No motor deficit, No sensory deficit, Normal speech, Other (NIHSS zero) Eye Opening: Spontaneous Motor: Obeys Commands Verbal: Oriented GCS Score: 15 Results - Vitals Vitals: Vital Signs - 24 hr 12/11/17 12/11/17 11:11 15:38 Temperature 36.1 C L Heart Rate 75 69 Respiratory 18 18 Rate Blood Pressure 144/51 H 134/62 H O2 Saturation 97 97 Oxygen O2 Source Room air - EKG (time done) 1417 Rate: Rate (enter#) (70) Rhythm: NSR [place]: Normal Intervals: 1st degree AVB, Prolonged QT Ischemia: Normal ST segments - Labs Labs: Laboratory Tests 12/11/17 12/11/17 12/11/17 11:56 11:56 12:39 WBC 4.1 L RBC 3.28 L Hgb 10.3 L Hct 29.9 L MCV 91.2 MCH 31.3 H MCHC 34.3 RDW 17.3 H Plt Count 147 MPV 7.5 L Neut # 2.5 Lymph # 1.1 L [place] # 0.4 Eos # 0.1 Baso # 0.0 Absolute Nucleated RBC 0.00 Nucleated RBC % 0.1 Sodium 130 L Potassium 3.9 Chloride 94 L Carbon Dioxide 24 Anion Gap 12.0 BUN 80 H* Creatinine 3.0 H Estimated GFR (MDRD) 15 L Glucose 331 H Calcium 8.4 L Troponin I 0.04 Urine Color Urine Clarity Urine pH Ur Specific [place] Urine Protein Urine Glucose (UA) Urine Ketones Urine Occult Blood Urine Nitrite Urine Bilirubin Urine Urobilinogen Ur Leukocyte Esterase Urine RBC Urine WBC Ur Squamous Epith Cells Urine Bacteria Ur Microscopic Review Urine Culture Comments 12/11/17 14:10 WBC RBC Hgb Hct MCV MCH MCHC RDW Plt Count MPV Neut # Lymph # [place] # Eos # Baso # Absolute Nucleated RBC Nucleated RBC % Sodium Potassium Chloride Carbon Dioxide Anion Gap BUN Creatinine Estimated GFR (MDRD) Glucose Calcium Troponin I Urine Color YELLOW Urine Clarity CLEAR Urine pH 7.0 Ur Specific [place] 1.010 Urine Protein 30 H Urine Glucose (UA) NEGATIVE Urine Ketones NEGATIVE Urine Occult Blood NEGATIVE Urine Nitrite NEGATIVE Urine Bilirubin NEGATIVE Urine Urobilinogen 0.2 (NORMAL) Ur Leukocyte Esterase NEGATIVE Urine RBC None Seen Urine WBC 0-3 Ur Squamous Epith Cells NONE SEEN Urine Bacteria Rare Ur Microscopic Review INDICATED Urine Culture Comments NOT INDICATED - Rads (name of study) CTH Radiology: Prelim report reviewed, See rad report (age related atrophy, R mastoid opacified unclear duration) carotid doppler Radiology: See rad report (neg) PD MEDICAL DECISION MAKING - ED course ED course: anemia and renal insuff and hyperglycemia not new reviewed dc summary from Sep pt admitted for fever and found on CT to have pna, also to have a UTI, and CHF (with EF 70-75%) and a NSTEMI was on nitro patch when admitted so that is not a new rx after all by hx numerous episodes of weakness and vision changes temporally related to changing nitro patch q AM considered TIA as cause EKG NSR so embolic source unlikely carotid doppler no acute CTH neg with vision abn posterior brain would be the concern but sx are resolved now so do not think ER MRI is necessary given resolved sx and nl ER wp feel can dc pt would consider MRI and echo if sx persist I do note that at hospital dc last Sep pt nitro was 0.1 per hr and now she had 0.2 she sates this change happened when dc from rehab - perhaps that is the etiology will rx 0.1 again also note she has a 1st degree block and borderline prolonged QT on EKG - rec she d/w her cardio to see if meds should be adjusted changed Departure - Departure Disposition: 01 Home, Self Care Clinical Impression: Adverse effects of medication Qualifiers: Encounter type: initial encounter Qualified Code(s): T88.7XXA - Unspecified adverse effect of drug or medicament, initial encounter Condition: Good Follow-Up: Tabitha Kingston MD [Primary Care Provider] - Prescriptions: Nitroglycerin 0.1 mg/Hr Patch [Nitro-Dur] 1 each TOP DAILY #30 patch Comments: It seems that the problem is that you nitro patch dose got increased from 0.1 to 0.2 This is causing you to have low blood pressure and likely the cause of your blurry vision Otherwise your ER work up suggests you are at low risk for a stoke (your heart is in a regular rhythm, the CT scan of your brain was fine, the ultrasound of you neck showed no blockages) I recommend it is OK for you to go home and resume the old nitro dose. If the symptoms persist, I would suggest that you see your PMD to discuss getting a MRI and MRA of your brain and neck and perhaps an echocardiogram. Also I notice on your EKG that you have some electric abnormalities ( a first degree block and a long QT ) - please discuss with your mender knit goods to see if any of your medications might need to be adjusted On your labs it was also noted that you have kidney disease, diabetes and anemia - these are not new but please follow up with your PMD
[2017-12-11 14:32] LABS: BILIRUBIN,URINE NEGATIVE (NEGATIVE); CLARITY,URINE CLEAR (CLEAR); GLUCOSE, URINE (UA) NEGATIVE (NEGATIVE); KETONES,URINE (UA) NEGATIVE (NEGATIVE); LEUKOCYTE ESTERASE, URINE NEGATIVE (NEGATIVE); NITRITE,URINE NEGATIVE (NEGATIVE); OCCULT BLOOD,URINE NEGATIVE (NEGATIVE); PROTEIN,URINE 30 mg/dL (NEGATIVE); UROBILINOGEN,URINE 0.2 (NORMAL) E.U./dL (NORMAL)
[2017-12-11 14:43] LABS: BACTERIA,URINE Rare /HPF (None Seen); RBC,URINE None Seen /HPF (0-5); SQUAMOUS EPITHELIAL CELL,UR NONE SEEN (<= Few)
[2017-12-11 15:39] VITALS: BP 134/62
--- NOTE | 2017-12-11 16:15 | Ultrasound Report ---
CAROTID DUPLEX: 12/11/2017 CLINICAL INDICATION: TIA symptoms. TECHNIQUE: Real-time sonographic vascular imaging was performed by the load blocker through the carotid arteries utilizing both color-flow and Doppler spectral analysis. Multiple primary care sales representative static images were saved for review. RIGHT Vessel PSV cm/sec EDV cm/sec ICA/CCA RSV Ratio Degree of Stenosis Plaque Estimate % RCCA Prox 79 -- -- RCCA Dist 64 7 -- RECA 216 -- -- RT BULB 100 7 1.5 MARIELA Prox 62 13 0.96 MARIELA Mid 52 10 0.81 MARIELA Dist 88 19 1.3 RVA 33 -- -- RVA flow direction: Antegrade LEFT Vessel PSV cm/sec EDV cm/sec ICA/CCA RSV Ratio Degree of Stenosis Plaque Estimate % LCCA Prox 87 -- -- LCCA Dist 63 7 -- LECA 188 1 -- LFT BULB 115 6 1.8 LICA Prox 98 21 1.5 LICA Mid 91 18 1.4 LICA Dist 94 19 1.5 LVA 31 -- -- LVA flow direction: Antegrade Velocity criteria are extrapolated from diameter data as defined by the Society of Radiologists in Ultrasound Consensus Conference Radiology 2003; 229; 340-346. Degree of Stenosis % ICA PSV cm/sec ICA EDV cm/sec ICA/CCA PSV Ratio Plaque Estimate % Normal < 125 < 40 < 2.0 None <50 < 125 < 40 < 2.0 < 50 50-69 125-130 40-100 2.0-4.0 >/=50 >/=70 but less than near occlusion > 230 > 100 > 4.0 >/=50 Near occlusion High, low or undetectable Variable Variable Visible Total occlusion Undetectable Not applicable Not applicable No detectable lumen FINDINGS RIGHT: There is mild calcified plaquing in the right carotid bifurcation, without evidence of a focal hemodynamically significant stenosis. LEFT: There is moderate calcified plaquing in the left carotid bifurcation, without evidence of a focal hemodynamically significant carotid stenosis. The vertebral arteries demonstrate antegrade flow bilaterally. IMPRESSION: NO EVIDENCE OF A FOCAL HEMODYNAMICALLY SIGNIFICANT CAROTID STENOSIS. TD: 12/11/2017 15:23 [facility]
== END 2017-12-11 17:01 | disposition home or self-care (01) ==
LOC: EDUNIT# → ED 11:10
DX: T50.995A Adverse effect of other drugs, medicaments and biological substances, initial encounter (principal); E87.1 Hypo-osmolality and hyponatremia; I45.10 Unspecified right bundle-branch block; I45.81 Long QT syndrome; I10 Essential (primary) hypertension; I50.9 Heart failure, unspecified; E11.9 Type 2 diabetes mellitus without complications; Z79.4 Long term (current) use of insulin
CPT/HCPCS: 36415; 70450; 80048; 81001; 81003; 84484; 85025; 87086; 93005; 93880; 96360; 99283; 99284

== ENCOUNTER 2018-01-15 11:17 | Outpatient (CLI) | payer MEDICARE, OTHER ==
[2018-01-15 18:52] LABS: BASOPHILS % (AUTO) 0.3 %; EOSINOPHILS # (AUTO) 0.1 10^3/uL (0.0-0.7); HGB - HEMOGLOBIN 9.3 g/dL (12.0-16.0); LYMPHOCYTES # (AUTO) 2.2 10^3/uL (1.5-3.5); LYMPHOCYTES % (AUTO) 39.1 %; MEAN CORPUSCULAR HEMOGLOBIN 29.8 pg (27.0-31.0); MEAN CORPUSCULAR HGB CONC 31.8 g/dL (32.0-36.0); MEAN CORPUSCULAR VOLUME 93.7 fL (81.0-99.0); MEAN PLATELET VOLUME 8.4 fL (7.9-10.8); MONOCYTES # (AUTO) 0.5 10^3/uL (0.0-1.0); MONOCYTES % (AUTO) 8.6 %; NEUTROPHILS # (AUTO) 2.8 10^3/uL (1.5-6.6); PLT - PLATELET COUNT 218 10^3/uL (130-450); RED BLOOD COUNT 3.11 10^6/uL (4.20-5.40); RED CELL DISTRIBUTION WIDTH 15.5 % (12.0-15.0); WHITE BLOOD COUNT 5.7 x10^3/uL (4.8-10.8)
[2018-01-15 22:32] LABS: CALCIUM 8.7 mg/dL (8.5-10.3); CREATININE 2.7 mg/dL (0.4-1.0)
[2018-01-15 22:47] LABS: URIC ACID 10.5 mg/dL (2.6-7.2)
== END 2018-01-15 11:18 ==
LOC: LAB.WCP 11:17
PROVIDERS: ATTEND Family Medicine
DX: M10.341 Gout due to renal impairment, right hand (principal); D64.9 Anemia, unspecified
CPT/HCPCS: 36415; 80048; 82728; 83540; 84466; 84550; 85025

== ENCOUNTER 2018-02-08 17:02 | Outpatient (CLI) | payer MEDICARE, OTHER | END 2018-02-08 17:03 | disposition critical access hospital (66) | LOC: EMS 17:02 | PROVIDERS: ATTEND Surgery | DX: M54.9 Dorsalgia, unspecified (principal) | CPT/HCPCS: A0425; A0429 ==

== ENCOUNTER 2018-02-08 17:21 | Emergency (ER) | payer MEDICARE, OTHER ==
[2018-02-08 17:35] VITALS: BP 125/42
[2018-02-08] MEDS ORDERED: ACETAMINOPHEN 325 MG TABLET PO STA (17:35)
[2018-02-08] MEDS ORDERED: LIDOCAINE PATCH 5% TOP STA (17:35)
--- NOTE | 2018-02-08 17:38 | ED Physician Documentation ---
History of Present Illness - Stated complaint Stated Complaint: BACK PAIN - Chief complaint Chief Complaint: General - History obtained from History obtained from: Patient, Family, EMS - History of Present Illness Timing: Other (She has had 3 weeks of bilateral shoulder blade pain that is worse if she coughs and she does have a productive cough. Also worse if she is moving about, but gets Better if she puts a heat pad on and takes Tylenol. 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 HEENT: Cataracts - Present Medications Home Medications: Ambulatory Orders Medication Instructions Recorded Confirmed Insulin Glargine,Hum.rec.anlog 20 units SUBQ QPM 07/06/14 10/15/17 [Lantus Solostar] Simvastatin [Zocor] 20 mg PO QPM 07/06/14 10/15/17 Benzonatate [Tessalon] 100 mg PO TID PRN capsule 10/20/17 Ciprofloxacin HCl [Cipro] 500 mg PO DAILY 10 Days #10 tablet 10/20/17 Metoprolol Succinate [Toprol Xl] 25 mg PO DAILY tablet 10/20/17 predniSONE [Deltasone] 20 mg PO DAILYWM 3 Days #3 tablet 10/20/17 Doxazosin [Cardura] 4 mg PO QPM #30 10/21/17 10/15/17 Furosemide [Lasix] 80 mg PO DAILY #30 10/21/17 10/15/17 Insulin Glulisine [Apidra Solostar] 8 unit SUBQ 1200 #1 10/21/17 10/15/17 Insulin Glulisine [Apidra] 6 unit SUBQ BIDWM #1 10/21/17 10/15/17 Lisinopril 20 mg PO BID #30 10/21/17 10/15/17 Nitroglycerin 0.1 mg/Hr Patch 1 each TOP DAILY #30 10/21/17 10/15/17 [Nitro-Dur] Saccharomyces Boulardii [Florastor] 250 mg PO BID 20 Days #40 capsule 10/21/17 amLODIPine [Norvasc] 5 mg PO QPM #30 10/21/17 10/15/17 hydrALAZINE [Apresoline] 25 mg PO QID #120 10/21/17 10/15/17 hydroCHLOROthiazide [Hydrodiuril] 25 mg PO DAILY #30 10/21/17 10/15/17 Nitroglycerin 0.1 mg/Hr Patch 1 each TOP DAILY #30 patch 12/11/17 [Nitro-Dur] Lidocaine Patch 5% [Lidoderm Patch] 1 each TOP DAILY #10 patch 02/08/18 - Allergies Allergies/Adverse Reactions: Allergies Allergy/AdvReac Type Severity Reaction Status Date / Time butalbital [From Fiorinal] Allergy Unknown Verified 12/11/17 11:16 Sulfa (Sulfonamide Allergy Unknown Verified 12/11/17 11:16 Antibiotics) sulfamethoxazole Allergy Unknown Verified 12/11/17 11:16 [From Septra] trimethoprim [From Septra] Allergy Unknown Verified 12/11/17 11:16 venom-honey bee Allergy Anaphylaxis Verified 12/11/17 11:16 [bee venom (honey bee)] - Social History Does the pt smoke?: No Smoking Status: Never smoker Does the pt drink ETOH?: No Does the pt have substance abuse?: No - Immunizations Immunizations are current?: No - POLST Patient has POLST: No POLST Status: Limited Interventions (Per interview with family friend, Harriet and phone interview with grand daughter, Cary, patient does not want to be left on a ventilator and/or not kept alive if she may be brain .) PD ED PE NORMAL - Vitals Vital signs reviewed: Yes - General General: Alert and oriented X 3, No acute distress - Neck Neck: Supple, no meningeal sign, No bony TTP - Cardiac Cardiac: RRR, Other (She is tender over the parathoracic muscles bilaterally which reproduces her pain. She has a 4 out of 6 holosystolic murmur) - Respiratory Respiratory: No respiratory distress, Clear bilaterally - Abdomen Abdomen: Non tender - Extremities Extremities: No edema, No calf tenderness / cord - Neuro Neuro: Alert and oriented X 3 Results - Vitals Vitals: Vital Signs - 24 hr 02/08/18 17:29 Temperature 36.8 C Heart Rate 52 L Respiratory 16 Rate Blood Pressure 125/42 L O2 Saturation 99 Oxygen O2 Source Room air - EKG (time done) 1735 Rate: Rate (enter#) (69) Rhythm: NSR [place]: Normal Intervals: Prolonged [place], RBBB Ischemia: Normal ST segments Computer interpretation: Agree with computer - Rads (name of study) 2v chest Radiology: EMP read contemporaneously (NAD) PD MEDICAL DECISION MAKING - ED course ED course: 87-year-old woman with what seems like muscle spasm in the rhomboid muscles/ parathoracic muscles. Chest x-ray is negative and she felt better with the lidocaine patch. Equal radial pulses. - Sepsis Event Vital Signs: Vital Signs - 24 hr 02/08/18 17:29 Temperature 36.8 C Heart Rate 52 L Respiratory 16 Rate Blood Pressure 125/42 L O2 Saturation 99 Oxygen O2 Source Room air Departure - Departure Disposition: 01 Home, Self Care Clinical Impression: Back muscle spasm Condition: Good Record reviewed to determine appropriate education?: Yes Instructions: ED Spasm Back No Trauma Prescriptions: Lidocaine Patch 5% [Lidoderm Patch] 1 each TOP DAILY #10 patch Comments: Continue your current medications and you can take Tylenol in addition to the lidocaine patch as needed for pain. Return for worse or new symptoms. Follow- up with your doctor next week if not better.
--- NOTE | 2018-02-08 18:39 | XRAY Report ---
Procedure Date: 02/08/2018 Accession Number: [id number] / [id number] Procedure: XR - Chest 2 View X-Ray CPT Code: 48081 FULL RESULT: EXAM: CHEST RADIOGRAPHY EXAM DATE: 02/08/2018 06:15 PM. CLINICAL HISTORY: Back pain, cough COMPARISON: 10/15/2017. TECHNIQUE: 2 views. FINDINGS: Lungs/Pleura: No focal opacities evident. No pleural effusion. No pneumothorax. Lungs are well expanded. Mediastinum: Normal heart size. There is thoracic aortic calcification. Other: None. IMPRESSION: No acute intrathoracic plain film abnormality. RADIA
== END 2018-02-08 19:07 | disposition home or self-care (01) ==
LOC: EDUNIT# → ED 17:21
DX: M62.830 Muscle spasm of back (principal); E11.9 Type 2 diabetes mellitus without complications; Z79.4 Long term (current) use of insulin
CPT/HCPCS: 71046; 93005; 99281; 99284; A9270

== ENCOUNTER 2018-02-14 | Outpatient (CLI) | END 2018-02-14 12:45 | disposition critical access hospital (66) | CPT/HCPCS: A0425; A0427 ==

== ENCOUNTER 2018-02-14 13:04 | Emergency (ER) | payer MEDICARE, OTHER ==
[2018-02-14 14:23] LABS: BASOPHILS % (AUTO) 0.4 %; EOSINOPHILS # (AUTO) 0.4 10^3/uL (0.0-0.7); EOSINOPHILS % (AUTO) 7.1 %; HGB - HEMOGLOBIN 8.7 g/dL (12.0-16.0); LYMPHOCYTES # (AUTO) 1.6 10^3/uL (1.5-3.5); LYMPHOCYTES % (AUTO) 24.9 %; MEAN CORPUSCULAR HEMOGLOBIN 30.3 pg (27.0-31.0); MEAN CORPUSCULAR HGB CONC 33.2 g/dL (32.0-36.0); MEAN CORPUSCULAR VOLUME 91.1 fL (81.0-99.0); MEAN PLATELET VOLUME 6.8 fL (7.9-10.8); MONOCYTES # (AUTO) 0.4 10^3/uL (0.0-1.0); MONOCYTES % (AUTO) 6.9 %; NEUTROPHILS # (AUTO) 3.8 10^3/uL (1.5-6.6); NEUTROPHILS % (AUTO) 60.7 %; PLT - PLATELET COUNT 273 10^3/uL (130-450); RED BLOOD COUNT 2.86 10^6/uL (4.20-5.40); RED CELL DISTRIBUTION WIDTH 13.7 % (12.0-15.0); WHITE BLOOD COUNT 6.3 x10^3/uL (4.8-10.8)
--- NOTE | 2018-02-14 14:48 | ED Physician Documentation ---
PD HPI SYNCOPE - Stated complaint Stated Complaint: DIZZY - Chief complaint Chief Complaint: Cardiac - History obtained from History obtained from: Patient, Family - History of Present Illness Timing - onset: Today (she was at PMD office for regular appt and felt lightheaded. BP noted to be low at 70s systolic. EMS called. EMS found BP 117 systolic. She is feeling better. Says she did not feel well the past 2 days with nausea, and had some diarrhea yesterday. No chest pain, no bloody stools.) Preceding symptoms: Nausea / vomiting (no vomiting but nausea and some diarrhea yesterday.), Light headed, Generalized weakness, Other (has had some cough for several days as well.). No: Headache, Chest pain, Dyspnea, Abdominal pain Associated symptoms: No: Chest pain, Abdominal pain Contributing factors: Decreased PO intake. No: Recent med change, Noxious stimulae Injury occurred: No: Fell, Head injury Treatment FIELD CAPTAIN: Fluids Similar symptoms before: Has not had sx before Recently seen: Clinic (was at office today when symptoms occurred.) Review of Systems Constitutional: denies: Fever Nose: denies: Rhinorrhea / runny nose, Congestion Throat: denies: Sore throat Cardiac: denies: Chest pain / pressure, Palpitations Respiratory: reports: Dyspnea, Cough (has had some mild productive cough the past few days, along with the malaise and some diarrhea/nausea. history of COPD. ) GI: reports: Nausea, Diarrhea. denies: Abdominal Pain, Vomiting, Bloody / black stool : denies: Dysuria, Frequency Musculoskeletal: denies: Neck pain, Back pain, Extremity swelling Neurologic: reports: Generalized weakness. denies: Focal weakness, Numbness, Near syncope (but felt lightheaded) Psychiatric: denies: Anxiety, Insomnia Immunocompromised: denies: Immunocompromised PD PAST MEDICAL HISTORY - Past Medical History Cardiovascular: Congestive heart failure, Hypertension Respiratory: COPD Neuro: None Endocrine/Autoimmune: Type 2 diabetes GI: None : None HEENT: None Psych: None Musculoskeletal: None Derm: None - Past Surgical History Past Surgical History: Yes General: Colonoscopy /RARE/ENDANGERED SPECIES SPECIALIST: Hysterectomy HEENT: Cataracts - Present Medications Home Medications: Ambulatory Orders Medication Instructions Recorded Confirmed Insulin Glargine,Hum.rec.anlog 20 units SUBQ QPM 07/06/14 10/15/17 [Lantus Solostar] Simvastatin [Zocor] 20 mg PO QPM 07/06/14 10/15/17 Benzonatate [Tessalon] 100 mg PO TID PRN capsule 10/20/17 Ciprofloxacin HCl [Cipro] 500 mg PO DAILY 10 Days #10 tablet 10/20/17 Metoprolol Succinate [Toprol Xl] 25 mg PO DAILY tablet 10/20/17 predniSONE [Deltasone] 20 mg PO DAILYWM 3 Days #3 tablet 10/20/17 Doxazosin [Cardura] 4 mg PO QPM #30 10/21/17 10/15/17 Furosemide [Lasix] 80 mg PO DAILY #30 10/21/17 10/15/17 Insulin Glulisine [Apidra Solostar] 8 unit SUBQ 1200 #1 10/21/17 10/15/17 Insulin Glulisine [Apidra] 6 unit SUBQ BIDWM #1 10/21/17 10/15/17 Lisinopril 20 mg PO BID #30 10/21/17 10/15/17 Nitroglycerin 0.1 mg/Hr Patch 1 each TOP DAILY #30 10/21/17 10/15/17 [Nitro-Dur] Saccharomyces Boulardii [Florastor] 250 mg PO BID 20 Days #40 capsule 10/21/17 amLODIPine [Norvasc] 5 mg PO QPM #30 10/21/17 10/15/17 hydrALAZINE [Apresoline] 25 mg PO QID #120 10/21/17 10/15/17 hydroCHLOROthiazide [Hydrodiuril] 25 mg PO DAILY #30 10/21/17 10/15/17 Nitroglycerin 0.1 mg/Hr Patch 1 each TOP DAILY #30 patch 12/11/17 [Nitro-Dur] Lidocaine Patch 5% [Lidoderm Patch] 1 each TOP DAILY #10 patch 02/08/18 Dexamethasone [Decadron] 4 mg PO DAILY #5 tablet 02/14/18 Doxycycline Monohydrate 100 mg PO BID #10 tablet 02/14/18 - Allergies Allergies/Adverse Reactions: Allergies Allergy/AdvReac Type Severity Reaction Status Date / Time butalbital [From Fiorinal] Allergy Unknown Verified 02/14/18 13:14 Sulfa (Sulfonamide Allergy Unknown Verified 02/14/18 13:14 Antibiotics) sulfamethoxazole Allergy Unknown Verified 02/14/18 13:14 [From ] trimethoprim [From ] Allergy Unknown Verified 02/14/18 13:14 venom-honey bee Allergy Anaphylaxis Verified 02/14/18 13:14 [bee venom (honey bee)] - Social History Does the pt smoke?: No Smoking Status: Never smoker Does the pt drink ETOH?: No Does the pt have substance abuse?: No - Family History Family history: reports: Non contributory - Immunizations Immunizations are current?: No - POLST Patient has POLST: No POLST Status: Limited Interventions (Per interview with family friend, Harriet and phone interview with grand daughter, Cary, patient does not want to be left on a ventilator and/or not kept alive if she may be brain .) PD ED PE NORMAL - Vitals Vital signs reviewed: Yes - General General: Alert and oriented X 3, No acute distress, Well developed/nourished - HEENT HEENT: Pharynx benign - Neck Neck: Supple, no meningeal sign, No adenopathy - Cardiac Cardiac: RRR, No murmur - Respiratory Respiratory: No: Clear bilaterally (faint wheezing diffusely; no coarse sounds. ) - Abdomen Abdomen: Soft, Non tender - Female Female : Deferred - Rectal Rectal: Deferred - Back Back: No CVA TTP - Derm Derm: Normal color, Warm and dry - Extremities Extremities: No tenderness to palpate, Normal ROM s pain, No edema, No calf tenderness / cord - Neuro Neuro: Alert and oriented X 3, No motor deficit, Normal speech Eye Opening: Spontaneous Motor: Obeys Commands Verbal: Oriented GCS Score: 15 - Psych Psych: Normal mood Results - Vitals Vitals: Oxygen O2 Source Room air - EKG (time done) 13:23 Rate: Rate (enter#) (98) [place]: Normal Intervals: Normal DC, RBBB QRS: Normal Ischemia: Non specific changes. No: ST elevation c/w ischemia, ST depression Compare to prior EKG: Unchanged from prior EKG - Labs Labs: Laboratory Tests 02/14/18 02/14/18 02/14/18 14:16 14:17 14:17 WBC 6.3 RBC 2.86 L Hgb 8.7 L Hct 26.1 L MCV 91.1 MCH 30.3 MCHC 33.2 RDW 13.7 Plt Count 273 MPV 6.8 L Neut # (Auto) 3.8 Lymph # (Auto) 1.6 Drew # (Auto) 0.4 Eos # (Auto) 0.4 Baso # (Auto) 0.0 Absolute Nucleated RBC 0.00 Nucleated RBC % 0.0 Sodium 128 L Potassium 4.2 Chloride 94 L Carbon Dioxide 22 Anion Gap 12.0 BUN 107 H* Creatinine 3.4 H Estimated GFR (MDRD) 13 L Glucose 173 H Calcium 8.2 L Phosphorus 5.9 H Magnesium 2.9 H Total Bilirubin 0.6 AST 22 ALT 10 Alkaline Phosphatase 65 Total Protein 6.9 Albumin 2.5 L Globulin 4.3 H Albumin/Globulin Ratio 0.6 L Lipase 35 - Rads (name of study) chest xray Radiology: Prelim report reviewed (chronic changes; no infiltrates) PD MEDICAL DECISION MAKING - ED course Complexity details: reviewed results (she had had less intake with some nausea, had some diarrhea yesterday, feeling weak today. Also with some dyspnea. ), considered differential (she is feeling well on arrival to ED and wanting to go home. Convinced her to get some fluids and labs. ), d/w patient - Sepsis Event Vital Signs: Oxygen O2 Source Room air Departure - Departure Disposition: 01 Home, Self Care Clinical Impression: COPD exacerbation, Transient hypotension, Renal insufficiency Diarrhea Qualifiers: Diarrhea type: unspecified type Qualified Code(s): R19.7 - Diarrhea, unspecified Condition: Stable Record reviewed to determine appropriate education?: Yes Follow-Up: Tabitha Kingston MD [Primary Care Provider] - Roland Quigley MD [Provider Admit Priv/Credential] - Prescriptions: Dexamethasone [Decadron] 4 mg PO DAILY #5 tablet Doxycycline Monohydrate 100 mg PO BID #10 tablet Comments: I think you were under hydrated perhaps from that illness recently and your blood pressure was low leading to the lightheadedness. Your blood pressure seems better with some fluids. We will treat the cough that you have had as well presuming some bronchitis/COPD exacerbation. Continue regular fluids. Decadron daily for 5 more days for airway inflammation. Use your albuterol nebulizer at home twice daily for the next week. Doxycycline antibiotic twice daily as prescribed. Hold your furosemide (Lasix) for 2 days. Follow-up with your primary care or Dr. Quigley in a couple of days, call today or tomorrow for an appointment. Return sooner if worsening symptoms. Discharge Date/Time: 02/14/18 16:55
[2018-02-14 14:49] LABS: ALBUMIN 2.5 g/dL (3.2-5.5); ALBUMIN/GLOBULIN RATIO 0.6 (1.0-2.2); BILIRUBIN,TOTAL 0.6 mg/dL (0.2-1.0); CALCIUM 8.2 mg/dL (8.5-10.3); CREATININE 3.4 mg/dL (0.4-1.0); TOTAL PROTEIN 6.9 g/dL (6.7-8.2)
[2018-02-14] MEDS ORDERED: SODIUM CHLORIDE 0.9% 1,000 ML IV ONE (15:14)
[2018-02-14 15:15] LABS: MAGNESIUM 2.9 mg/dL (1.7-2.8); PHOSPHORUS 5.9 mg/dL (2.5-4.6)
--- NOTE | 2018-02-14 16:01 | XRAY Report ---
Procedure Date: 02/14/2018 Accession Number: [id number] / [id number] Procedure: XR - Chest 2 View X-Ray CPT Code: 04597 FULL RESULT: EXAM: CHEST RADIOGRAPHY EXAM DATE: 02/14/2018 03:49 PM. CLINICAL HISTORY: Chest pain left sided. COMPARISON: 02/08/2018. TECHNIQUE: 2 views. FINDINGS: Lungs/Pleura: Hyperexpanded with flattened diaphragm and coarse lung markings typical of COPD. No localized infiltrate, consolidation, effusion, or pneumothorax. Mediastinum: Heart and mediastinal contours are unremarkable. Upper lobe vessels not distended. Other: Degenerative changes. IMPRESSION: Chronic findings. No acute disease. RADIA
[2018-02-14] MEDS ORDERED: DOXYCYCLINE 100 MG TABLET PO STA (16:20)
[2018-02-14] MEDS ORDERED: DEXAMETHASONE 10 MG/ML VIAL IVP STA (16:20)
[2018-02-14 16:45] VITALS: BP 120/60
== END 2018-02-14 16:55 | disposition home or self-care (01) ==
LOC: EDUNIT# → ED 13:04
DX: J44.1 Chronic obstructive pulmonary disease with (acute) exacerbation (principal); I95.9 Hypotension, unspecified; N28.9 Disorder of kidney and ureter, unspecified; R19.7 Diarrhea, unspecified; I45.10 Unspecified right bundle-branch block; I11.0 Hypertensive heart disease with heart failure; I50.9 Heart failure, unspecified; E11.9 Type 2 diabetes mellitus without complications; Z79.4 Long term (current) use of insulin
CPT/HCPCS: 36415; 71046; 80053; 83690; 83735; 84100; 85025; 93005; 96361; 96374; 99283; 99284; A9270

== ENCOUNTER 2018-02-15 14:46 | Outpatient (CLI) | payer MEDICARE, OTHER ==
--- NOTE | 2018-02-15 15:57 | CT Report ---
Procedure Date: 02/15/2018 Accession Number: [id number] / [id number] Procedure: CT - Head W/O CPT Code: FULL RESULT: EXAM: CT HEAD EXAM DATE: 02/15/2018 03:22 PM. CLINICAL HISTORY: ELDERLY FALL. COMPARISON: 12/11/17. TECHNIQUE: Multiaxial CT images were obtained from the foramen magnum to the vertex. Reformats: Coronal. IV contrast: None. In accordance with CT protocol optimization, one or more of the following dose reduction techniques were utilized for this exam: automated exposure control, adjustment of mA and/or KV based on patient size, or use of iterative reconstructive technique. FINDINGS: Parenchyma: No intracranial hemorrhage. No evidence of mass, midline shift or CT findings of acute territorial infarction. Monteiro-white differentiation is distinct. Diffuse chronic microangiopathic ischemic changes and mild global volume loss as before. Extraaxial Spaces: No subdural or epidural collections identified. Ventricles: No hydrocephalus Sinuses: Bilateral lens extractions. Redemonstration of opacification of the right mastoid air cells. Bones: No evidence of acute fracture or calvarial defect. Other: Calcification of the cavernous carotids. IMPRESSION: No acute intracranial abnormalities. RADIA
== END 2018-02-15 14:47 | disposition home or self-care (01) ==
LOC: DI 14:46
PROVIDERS: ATTEND Family Medicine
DX: S09.90XA Unspecified injury of head, initial encounter (principal)
CPT/HCPCS: 70450

== ENCOUNTER 2018-02-27 05:10 | Outpatient (CLI) | payer MEDICARE, OTHER | END 2018-02-27 05:11 | disposition critical access hospital (66) | LOC: EMS 05:10 | PROVIDERS: ATTEND Surgery | DX: R41.82 Altered mental status, unspecified (principal); R11.0 Nausea; R68.89 Other general symptoms and signs | CPT/HCPCS: A0425; A0427 ==

== ENCOUNTER 2018-02-27 05:30 | Inpatient (IN) | payer MEDICARE, OTHER ==
--- NOTE | 2018-02-27 05:40 | ED Physician Documentation ---
History of Present Illness - Stated complaint Stated Complaint: AMS - History obtained from History obtained from: Patient, EMS - History of Present Illness Timing: Yesterday - Additonal information Additional information: Patient is an 87 year old female with a history of diabetes and chf who was brought in by ems for altered mental status and moaning. Patient originally called her lifeline because she was not feeling well. Patient also called her daughter. When ems arrived patient was moaning but able to answer questions. patient's blood glucose was 48. patient was given orange juice and her blood sugar improved to 134. Patient still was not feeling well so they brought the patient in for evaluation. Of further note patient ran out of her normal insulin and took an unknown amount of a different insulin. Patient also had two episodes of diarrhea. Review of Systems Constitutional: reports: Chills Cardiac: denies: Chest pain / pressure, Palpitations Respiratory: denies: Cough, Wheezing GI: reports: Diarrhea. denies: Abdominal Pain, Nausea, Vomiting : denies: Dysuria, Frequency Neurologic: reports: Generalized weakness. denies: Focal weakness, Numbness, Headache, LOC Immunocompromised: denies: Immunocompromised PD PAST MEDICAL HISTORY - Past Medical History Cardiovascular: Congestive heart failure, Hypertension Respiratory: COPD Endocrine/Autoimmune: Type 2 diabetes GI: None : None HEENT: None Psych: None Musculoskeletal: None Derm: None - Past Surgical History Past Surgical History: Yes General: Colonoscopy /[employer]: Hysterectomy HEENT: Cataracts - Present Medications Home Medications: Ambulatory Orders Medication Instructions Recorded Confirmed Simvastatin [Zocor] 20 mg PO QPM 07/06/14 02/27/18 Metoprolol Succinate [Toprol Xl] 25 mg PO DAILY tablet 10/20/17 02/27/18 Insulin Glulisine [Apidra Solostar] 8 unit SUBQ 1200 #1 10/21/17 02/27/18 Insulin Glulisine [Apidra] 6 unit SUBQ BIDWM #1 10/21/17 02/27/18 hydroCHLOROthiazide [Hydrodiuril] 25 mg PO DAILY #30 10/21/17 02/27/18 Nitroglycerin 0.1 mg/Hr Patch 1 each TOP DAILY #30 patch 12/11/17 02/27/18 [Nitro-Dur] Lidocaine Patch 5% [Lidoderm Patch] 1 each TOP DAILY #10 patch 02/08/18 02/27/18 Allopurinol 50 mg PO DAILY 02/27/18 02/27/18 Ferrous Sulfate 325 mg PO DAILY 02/27/18 02/27/18 Furosemide 40 mg PO DAILY 02/27/18 02/27/18 Insulin Glargine [Lantus Solostar] 10 unit SUBQ QPM #1 pen 03/02/18 Lisinopril [Prinivil] 20 mg PO DAILY #30 tablet 03/02/18 - Allergies Allergies/Adverse Reactions: Allergies Allergy/AdvReac Type Severity Reaction Status Date / Time butalbital [From Fiorinal] Allergy Unknown Verified 02/27/18 05:42 Sulfa (Sulfonamide Allergy Unknown Verified 02/27/18 05:42 Antibiotics) sulfamethoxazole Allergy Unknown Verified 02/27/18 05:42 [From Septra] trimethoprim [From Aprra] Allergy Unknown Verified 02/27/18 05:42 venom-honey bee Allergy Anaphylaxis Verified 02/27/18 05:42 [bee venom (honey bee)] - Social History Does the pt smoke?: No Smoking Status: Never smoker Does the pt drink ETOH?: No Does the pt have substance abuse?: No - Immunizations Immunizations are current?: No - POLST Patient has POLST: No POLST Status: Limited Interventions (Per interview with family friend, Harriet and phone interview with grand daughter, Cary, patient does not want to be left on a ventilator and/or not kept alive if she may be brain .) PD ED PE NORMAL - Vitals Vital signs reviewed: Yes (hypothermic) - General General: Alert and oriented X 3 - HEENT HEENT: Atraumatic - Cardiac Cardiac: No murmur - Abdomen Abdomen: Soft, Non tender, Non distended - Derm Derm: Normal color, Warm and dry - Extremities Extremities: No deformity - Neuro Neuro: Alert and oriented X 3, Other (awake and alert but continues to moan) Eye Opening: To Voice Motor: Obeys Commands Verbal: Oriented GCS Score: 14 PD ED PE EXPANDED - HEENT HEENT: Dry mucous membranes - Cardiac Cardiac: Irregularly irregular Results - Vitals Vitals: Oxygen O2 Source Room air - EKG (time done) 0600 Rate: Rate (enter#) (95) Rhythm: Atrial fibrillation Other comments: Other comments (poor quality, apparent j wave in V3) Compare to prior EKG: Unchanged from prior EKG - Labs Labs: Microbiology 02/27/18 06:05 Blood Culture - Final Blood NO GROWTH AFTER 5 DAYS 02/27/18 06:05 Blood Culture - Final Blood NO GROWTH AFTER 5 DAYS 02/27/18 07:40 Campylobacter Antigen Assay - Final Stool Stool Culture - Final NO SALMONELLA, SHIGELLA, E. COLI 0157, AEROMONAS, EDWARDSIELLA, PLESIOMONAS, YERSINIA, OR VIBRIO ISOLATED. SHIGA TOXIN TEST NOT PERFORMED DUE TO LACK OF GROWTH OF POTENTIAL PATHOGENS IN ENRICHMENT BROTH. 02/27/18 07:40 Clostridium difficile (PCR) - Final Stool Laboratory Tests 02/27/18 02/27/18 02/27/18 06:05 06:05 06:05 WBC 3.7 L RBC 3.00 L Hgb 9.1 L Hct 27.4 L MCV 91.6 MCH 30.3 MCHC 33.1 RDW 13.7 Plt Count 183 MPV 7.3 L Neut # (Auto) 3.1 Lymph # (Auto) 0.3 L Page # (Auto) 0.3 Eos # (Auto) 0.1 Baso # (Auto) 0.0 Absolute Nucleated RBC 0.00 Nucleated RBC % 0.0 Sodium 130 L Potassium 3.5 Chloride 98 L Carbon Dioxide 19 L Anion Gap 13.0 BUN 72 H Creatinine 3.1 H Estimated GFR (MDRD) 14 L Glucose 268 H POC Whole Bld Glucose Lactic Acid Calcium 7.9 L Total Bilirubin 0.5 AST 29 ALT 12 Alkaline Phosphatase 67 Troponin I 0.06 B-Natriuretic Peptide Total Protein 6.6 L Albumin 2.7 L Globulin 3.9 Albumin/Globulin Ratio 0.7 L Lipase 60 H TSH Urine Color Urine Clarity Urine pH Ur Specific [place] Urine Protein Urine Glucose (UA) Urine Ketones Urine Occult Blood Urine Nitrite Urine Bilirubin Urine Urobilinogen Ur Leukocyte Esterase Urine RBC Urine WBC Ur Squamous Epith Cells Urine Bacteria Ur Microscopic Review Urine Culture Comments 02/27/18 02/27/18 02/27/18 06:05 06:05 06:05 WBC RBC Hgb Hct MCV MCH MCHC RDW Plt Count MPV Neut # (Auto) Lymph # (Auto) Page # (Auto) Eos # (Auto) Baso # (Auto) Absolute Nucleated RBC Nucleated RBC % Sodium Potassium Chloride Carbon Dioxide Anion Gap BUN Creatinine Estimated GFR (MDRD) Glucose POC Whole Bld Glucose Lactic Acid 1.7 Calcium Total Bilirubin AST ALT Alkaline Phosphatase Troponin I B-Natriuretic Peptide Total Protein Albumin Globulin Albumin/Globulin Ratio Lipase TSH 4.49 Urine Color YELLOW Urine Clarity CLEAR Urine pH 6.0 Ur Specific [place] 1.020 Urine Protein 30 H Urine Glucose (UA) 100 H Urine Ketones NEGATIVE Urine Occult Blood TRACE-INTA Urine Nitrite NEGATIVE Urine Bilirubin NEGATIVE Urine Urobilinogen 0.2 (NORMAL) Ur Leukocyte Esterase NEGATIVE Urine RBC 0-5 Urine WBC 0-3 Ur Squamous Epith Cells RARE Squamous Urine Bacteria Rare Ur Microscopic Review INDICATED Urine Culture Comments NOT INDICATED 02/27/18 02/27/18 06:05 06:06 WBC RBC Hgb Hct MCV MCH MCHC RDW Plt Count MPV Neut # (Auto) Lymph # (Auto) Page # (Auto) Eos # (Auto) Baso # (Auto) Absolute Nucleated RBC Nucleated RBC % Sodium Potassium Chloride Carbon Dioxide Anion Gap BUN Creatinine Estimated GFR (MDRD) Glucose POC Whole Bld Glucose 282 H Lactic Acid Calcium Total Bilirubin AST ALT Alkaline Phosphatase Troponin I B-Natriuretic Peptide 625 H Total Protein Albumin Globulin Albumin/Globulin Ratio Lipase TSH Urine Color Urine Clarity Urine pH Ur Specific [place] Urine Protein Urine Glucose (UA) Urine Ketones Urine Occult Blood Urine Nitrite Urine Bilirubin Urine Urobilinogen Ur Leukocyte Esterase Urine RBC Urine WBC Ur Squamous Epith Cells Urine Bacteria Ur Microscopic Review Urine Culture Comments - Rads (name of study) chest x-ray Radiology: Final report received (no infiltrate or edema) PD MEDICAL DECISION MAKING - ED course Complexity details: reviewed old records, reviewed results, re-evaluated patient , considered differential, d/w patient, d/w assessment consultant ED course: Patient was seen and examined at bedside. IV access was gained and labs were drawn. rectal temp was performed and patient was found to by hypothermic at 33 celcius. labs were drawn. urine was collected and chest x-ray was ordered. external heating was placed on the patient. repeat blood glucose was over 200. ekg was performed, it appeared similar to previous but it also appeared to have J/thomas waves in V3. chest x-ray showed new infiltrate. Patient was treated with rocephin 1gm. rectal probe was placed. Case was discussed with the night hospitalist who was going to talk with the day team with the impression that the patient would be admitted. patient's tsh was to be follow up by the morning physician. - Sepsis Event Vital Signs: Oxygen O2 Source Room air Departure - Departure Disposition: 66 [facility] DC/Xfer Clinical Impression: Hypothermia, Pneumonia Condition: Stable Discharge Date/Time: 02/27/18 09:04
--- NOTE | 2018-02-27 06:06 | XRAY Report ---
Procedure Date: 02/27/2018 Accession Number: [id number] / [id number] Procedure: XR - Chest 1 View X-Ray CPT Code: 42647 FULL RESULT: EXAM: CHEST RADIOGRAPHY EXAM DATE: 02/27/2018 05:52 AM. CLINICAL HISTORY: Doesn't feel well. COMPARISON: 02/14/2018. TECHNIQUE: 1 view. FINDINGS: Lungs/Pleura: New bilateral interstitial infiltrates or edema. No pleural effusion seen. No pneumothorax. Mediastinum: Heart size normal to upper normal. Aortic atherosclerosis. Other: Osteopenia. IMPRESSION: 1. New bilateral interstitial infiltrates or edema. RADIA
[2018-02-27 06:16] LABS: BASOPHILS % (AUTO) 0.4 %; EOSINOPHILS # (AUTO) 0.1 10^3/uL (0.0-0.7); EOSINOPHILS % (AUTO) 1.6 %; HGB - HEMOGLOBIN 9.1 g/dL (12.0-16.0); LYMPHOCYTES # (AUTO) 0.3 10^3/uL (1.5-3.5); LYMPHOCYTES % (AUTO) 8.4 %; MEAN CORPUSCULAR HEMOGLOBIN 30.3 pg (27.0-31.0); MEAN CORPUSCULAR HGB CONC 33.1 g/dL (32.0-36.0); MEAN CORPUSCULAR VOLUME 91.6 fL (81.0-99.0); MEAN PLATELET VOLUME 7.3 fL (7.9-10.8); MONOCYTES # (AUTO) 0.3 10^3/uL (0.0-1.0); MONOCYTES % (AUTO) 6.9 %; NEUTROPHILS # (AUTO) 3.1 10^3/uL (1.5-6.6); NEUTROPHILS % (AUTO) 82.7 %; PLT - PLATELET COUNT 183 10^3/uL (130-450); RED CELL DISTRIBUTION WIDTH 13.7 % (12.0-15.0); WHITE BLOOD COUNT 3.7 x10^3/uL (4.8-10.8)
[2018-02-27] MEDS ORDERED: SODIUM CHLORIDE 0.9% 500 ML IV ONE (06:17)
[2018-02-27 06:21] LABS: BILIRUBIN,URINE NEGATIVE (NEGATIVE); GLUCOSE, URINE (UA) 100 mg/dL (NEGATIVE); KETONES,URINE (UA) NEGATIVE (NEGATIVE); LEUKOCYTE ESTERASE, URINE NEGATIVE (NEGATIVE); NITRITE,URINE NEGATIVE (NEGATIVE); OCCULT BLOOD,URINE TRACE-INTA (NEGATIVE); PROTEIN,URINE 30 mg/dL (NEGATIVE); UROBILINOGEN,URINE 0.2 (NORMAL) E.U./dL (NORMAL)
[2018-02-27 06:25] LABS: CLARITY,URINE CLEAR (CLEAR)
[2018-02-27 06:29] LABS: ALBUMIN 2.7 g/dL (3.2-5.5); ALBUMIN/GLOBULIN RATIO 0.7 (1.0-2.2); BILIRUBIN,TOTAL 0.5 mg/dL (0.2-1.0); CALCIUM 7.9 mg/dL (8.5-10.3); CREATININE 3.1 mg/dL (0.4-1.0); TOTAL PROTEIN 6.6 g/dL (6.7-8.2)
[2018-02-27] MEDS ORDERED: cefTRIAXone 1 GM in SODIUM CHLORIDE 0.9% MINIBAG 100 ML IV STA (06:29)
[2018-02-27 06:33] LABS: BACTERIA,URINE Rare /HPF (None Seen); RBC,URINE 0-5 /HPF (0-5); SQUAMOUS EPITHELIAL CELL,UR RARE Squamous (<= Few)
[2018-02-27] MEDS ORDERED: SODIUM CHLORIDE FLUSH 0.9% 10 ML SYRINGE IVP PRN (08:13)
[2018-02-27] MEDS ORDERED: BENZONATATE 100 MG CAPSULE PO PRN (08:29)
[2018-02-27] MEDS ORDERED: DOXYCYCLINE MONOHYDRATE 100 MG PO SCH (09:00)
[2018-02-27] MEDS ORDERED: hydrALAZINE 25 MG TABLET PO SCH (09:00)
[2018-02-27] MEDS ORDERED: CIPROFLOXACIN HCL 500 MG PO SCH (09:00)
[2018-02-27] MEDS ORDERED: hydroCHLOROthiazide 25 MG TABLET PO SCH (09:00)
[2018-02-27] MEDS ORDERED: DEXAMETHASONE 4 MG TABLET PO SCH (09:00)
[2018-02-27] MEDS ORDERED: POLYETHYLENE GLYCOL 3350 17 GM PACKET PO SCH (09:00)
[2018-02-27] MEDS: AZITHROMYCIN INJ 500 MG in SODIUM CHLORIDE 0.9% 250 ML IV SCH (11:05)
[2018-02-27] MEDS: SODIUM CHLORIDE FLUSH 0.9% 10 ML SYRINGE IVP SCH ×3 (11:54→23:47)
[2018-02-27] MEDS: NITROGLYCERIN 0.1 MG/HR PATCH TOP SCH (13:25)
[2018-02-27] MEDS: FUROSEMIDE 40 MG TABLET PO SCH (13:25)
[2018-02-27] MEDS: METOPROLOL SUCCINATE 25 MG TABLET PO SCH (13:26)
[2018-02-27] MEDS: INSULIN ASPART 300 UNIT/3 ML PEN SUBQ SCH ×3 (13:27→20:40)
[2018-02-27] MEDS: SACCHAROMYCES BOULARDII 250 MG CAPSULE PO SCH ×2 (13:28→20:46)
--- NOTE | 2018-02-27 17:36 | HISTORY & PHYSICAL EXAMINATION ---
Chief Complaint - Chief Complaint Chief Complaint: altered mental status History of Present Illness - Admitted From Admitted From:: Home - History Obtained From History obtained from: Patient, ED physician - History of Present Illness HPI Comment/Other: Madai Boudreaux is a very pleasant 87-year-old female with an extensive past medical history significant for diabetes, congestive heart failure, hypertension , hyperlipidemia, mild aortic stenosis, chronic kidney disease stage IV, and sciatica who has been weak for the last several days and today he just felt ill so she placed her life alert alarm. When EMS got to her home they noted that she was having difficulty making her needs known and was mumbling. The patient' s mental status started to clear over the next several hours and she now appears to be close to baseline. While in the emergency department the pt was found to have bilateral pneumonia, hyponatremia, and renal insufficiency with a creatinine of 3.1. History - Past Medical History Cardiovascular: reports: Congestive heart failure, Hypertension, High cholesterol, Atrial fibrillation, Valve disorder Respiratory: reports: COPD Neuro: reports: None Endocrine/Autoimmune: reports: Type 2 diabetes GI: reports: None : reports: None HEENT: reports: None Psych: reports: None Musculoskeletal: reports: Fatigue Derm: reports: None MRSA Hx?: No - Past Surgical History General: reports: Colonoscopy Ortho: reports: Other /STATISTICAL TYPIST: reports: Hysterectomy HEENT: reports: Cataracts - Family & Social History Family History: Mother: , Father: Family History Comment/Other: The patient's parents are . Her mother had a history of DM type 2, father with no known illnesses. She as 4 brothers, 3 sisters, 3 of which have of cancer, including colon cancer. She also had a twin brother who of a CVA, CT. Social History Notes: The patient is , her ~2 years ago at age 88 [address]. She has one daughter who lives in [place] and multiple grandchildren. Her granddaughter, Cary and is listed as first contact lives in [place], [place]. The patient lives in [place], alone in a 1-story home. She has a few life-long friends who are close to her, the main friend being Harriet. 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 She states that she does not drink alcohol, use illicit drugs, and has never been a smoker. - Substance History Use: Uses substance without health or social issues: NONE Abuse: Recurrent use of substance despite neg consequences: NONE Dependence: Experiences withdrawal or developed tolerances: NONE - POLST Patient has POLST: No POLST Status: Limited Interventions (Per interview with family friend, Harriet and phone interview with grand daughter, Cary, patient does not want to be left on a ventilator and/or not kept alive if she may be brain .) Meds/Allgy - Home Medications Home Medications: Ambulatory Orders Medication Instructions Recorded Confirmed Insulin Glargine,Hum.rec.anlog 15 units SUBQ QPM 07/06/14 02/27/18 [Lantus Solostar] Simvastatin [Zocor] 20 mg PO QPM 07/06/14 02/27/18 Metoprolol Succinate [Toprol Xl] 25 mg PO DAILY tablet 10/20/17 02/27/18 Insulin Glulisine [Apidra Solostar] 8 unit SUBQ 1200 #1 10/21/17 02/27/18 Insulin Glulisine [Apidra] 6 unit SUBQ BIDWM #1 10/21/17 02/27/18 hydroCHLOROthiazide [Hydrodiuril] 25 mg PO DAILY #30 10/21/17 02/27/18 Nitroglycerin 0.1 mg/Hr Patch 1 each TOP DAILY #30 patch 12/11/17 02/27/18 [Nitro-Dur] Lidocaine Patch 5% [Lidoderm Patch] 1 each TOP DAILY #10 patch 02/08/18 02/27/18 Allopurinol [Allopurinol] 50 mg PO DAILY 02/27/18 02/27/18 Ferrous Sulfate 325 mg PO DAILY 02/27/18 02/27/18 Furosemide [Furosemide] 40 mg PO DAILY 02/27/18 02/27/18 Lisinopril [Lisinopril] 10 mg PO DAILY 02/27/18 02/27/18 - Allergies Allergies/Adverse Reactions: Allergies Allergy/AdvReac Type Severity Reaction Status Date / Time butalbital [From Fiorinal] Allergy Unknown Verified 02/27/18 05:42 Sulfa (Sulfonamide Allergy Unknown Verified 02/27/18 05:42 Antibiotics) sulfamethoxazole Allergy Unknown Verified 02/27/18 05:42 [From Aprra] trimethoprim [From ] Allergy Unknown Verified 02/27/18 05:42 venom-honey bee Allergy Anaphylaxis Verified 02/27/18 05:42 [bee venom (honey bee)] Review of Systems - Constitutional Constitutional: reports: Fatigue, Weakness, Poor appetite. denies: Fever, Chills, Malaise - Eyes Eyes: denies: Pain, Irritation, Amaurosis, Blurred vision - Ears, Nose & Throat Ears, Nose & Throat: reports: Hearing loss. denies: Ear pain, Tinnitus, Vertigo , Nasal pain, Nasal discharge, Nosebleeds, Nasal obstruction, Sore throat, Mouth lesions - Cardiovascular Cariovascular: denies: Irregular heart rate, Palpitations, Chest pain, Edema - Respiratory Respiratory: reports: Cough, SOB with exertion. denies: Sputum production, Wheezing, Snoring, Hemoptysis, Orthopnea - Gastrointestinal Gastrointestinal: denies: Abdominal pain, Abdominal distention, Constipation, Diarrhea, Change in bowel habits, Rectal bleeding - Genitourinary Genitourinary: denies: Dysuria, Frequency, Urgency, Hematuria - Musculoskeletal Musculoskeletal: denies: Muscle pain, Back pain, Muscle aches, Stiffness - Integumentary Integumentary: denies: Rash, Pruritis, Lesions, Dryness - Neurological Neurological: reports: General weakness. denies: Focal weakness, Headache, Dizziness, Numbness, Memory problems - Psychiatric Psychiatric: denies: Depression, Anxiety, Suicidal, Hallucinations - Endocrine Endocrine: denies: Polyuria, Polydypsia, Polyphagia - Hematologic/Lymphatic Hematologic/Lymphatic: denies: Anemia, Bruising, Petechiae, Lymphadenopathy - All Other Systems All Other Systems: reports: Reviewed and negative Exam - Vital Signs Reviewed Vital Signs: Yes Vital Signs: Vital Signs x48h Temp Pulse Resp BP Pulse Ox 02/27/18 16:23 36.8 C 62 16 100/62 99 02/27/18 13:00 36.5 C 61 16 100/39 L 99 - Physical Exam General Appearance: positive: Alert, Mild distress, Anxious Eyes Bilateral: positive: Normal inspection, PERRL, EOMI, No lid inflammation, Conjunctivae nml, No scleral icterus ENT: positive: ENT inspection nml, Pharynx nml, No signs of dehydration Neck: positive: Nml inspection, Thyroid nml, No JVD, Trachea midline. negative : Thyromegaly Respiratory: positive: Chest non-tender, No respiratory distress, Breath sounds nml. negative: Wheezes, Rales, Rhonchi Cardiovascular: positive: Regular rate & rhythm, No murmur, No gallop Peripheral Pulses: positive: 1+ Abdomen: positive: Non-tender, No organomegaly, Nml bowel sounds, No distention. negative: Guarding, Rebound Back: positive: Nml inspection. negative: CVA tenderness (R), CVA tenderness (L ) Skin: positive: Color nml, No rash, Warm, Dry. negative: Cyanosis Extremities: positive: Non-tender, Full ROM, Nml appearance, No pedal edema Neurologic/Psychiatric: positive: Oriented x3, CN's nml (2-12), Motor nml, Sensation nml, Mood/affect nml Conclusion/Plan - Problem List (1) Bilateral pneumonia Conclusion/Plan: Community-acquired. Unsure of etiology or causative agent. Patient does have markings on chest x-ray which are consistent with bilateral pneumonia. We will start her on ceftriaxone and azithromycin and rule out pulmonary edema with a BNP.We will give her supplemental oxygen and bronchodilators as needed. (2) CHF (congestive heart failure) Conclusion/Plan: The patient had an echocardiogram in September 2017 which showed moderate concentric left ventricular hypertrophy and an overall left ventricular systolic function which is rated as normal with an ejection fraction of 70-75%. There is also noted there was mild to moderate aortic stenosis and moderately abnormal right heart pressures. We will continue the patient on a diuretic and an PAOLA/ARB and monitor strict I&O's while she is inpatient. Qualifiers: Qualified Code(s): I50.33 - Acute on chronic diastolic (congestive) heart failure (3) Diabetes mellitus type 2 in nonobese Conclusion/Plan: We have started the patient on a carb controlled diet with Lantus, mealtime insulin dosing, and a sliding scale coverage. We will check the patient's hemoglobin A1c. (4) Coronary artery disease Conclusion/Plan: We will continue the patient on her nitroglycerin patch.No complaints of chest pain at this time. (5) Hyperlipidemia Conclusion/Plan: Patient has a history of hyperlipidemia and takes Zocor at home. We will continue this while she is inpatient. (6) History of gout Conclusion/Plan: The patient has a history of gout and takes allopurinol at home; we will continue this while she is inpatient. (7) HTN (hypertension) Conclusion/Plan: We will continue the patient on lisinopril, metoprolol, and Lasix. Blood pressures are Low normal at this time. - Lab Results Lab results reviewed: Yes Fish Bones: 02/27/18 06:05 02/27/18 06:05 - Diagnostic Imaging Results Diagnostic Imaging Results: positive: Final report reviewed Diagnostic Imaging Results Comments: EXAM: CHEST RADIOGRAPHY EXAM DATE: 02/27/2018 05:52 AM. CLINICAL HISTORY: Doesn't feel well. COMPARISON: 02/14/2018. TECHNIQUE: 1 view. FINDINGS: Lungs/Pleura: New bilateral interstitial infiltrates or edema. No pleural effusion seen. No pneumothorax. Mediastinum: Heart size normal to upper normal. Aortic atherosclerosis. Other: Osteopenia. IMPRESSION: 1. New bilateral interstitial infiltrates or edema. Core Measures - Anticipated LOS I expect patient to be DC'd or transferred within 96 hours.: Yes - DVT/VTE - Prophylaxis VTE/DVT Device ordered at admit?: Yes
[2018-02-27] MEDS: ATORVASTATIN 10 MG TABLET PO SCH (20:46)
[2018-02-27] MEDS ORDERED: INSULIN GLARGINE 300 UNIT/3 ML PEN SUBQ SCH (21:00)
[2018-02-27] MEDS ORDERED: DOXAZOSIN 4 MG TABLET PO SCH (21:00)
[2018-02-27] MEDS ORDERED: amLODIPine 5 MG TABLET PO SCH (21:00)
[2018-02-28 05:48] LABS: HGB - HEMOGLOBIN 7.6 g/dL (12.0-16.0); MEAN CORPUSCULAR VOLUME 90.8 fL (81.0-99.0); MEAN PLATELET VOLUME 7.4 fL (7.9-10.8); RED BLOOD COUNT 2.52 10^6/uL (4.20-5.40); RED CELL DISTRIBUTION WIDTH 13.6 % (12.0-15.0)
[2018-02-28 05:59] LABS: CALCIUM 7.7 mg/dL (8.5-10.3)
[2018-02-28 06:51] LABS: HEMOGLOBIN A1C 0.48 g/dL; HEMOGLOBIN A1C % 7.6 % (4.6-6.2)
[2018-02-28] MEDS ORDERED: ACETAMINOPHEN 500 MG TABLET PO PRN (06:51)
[2018-02-28] MEDS: AZITHROMYCIN INJ 500 MG in SODIUM CHLORIDE 0.9% 250 ML IV SCH (08:35)
[2018-02-28] MEDS: SPIRONOLACTONE 25 MG TABLET PO SCH (08:36)
[2018-02-28] MEDS: NITROGLYCERIN 0.1 MG/HR PATCH TOP SCH (08:36)
[2018-02-28] MEDS: SACCHAROMYCES BOULARDII 250 MG CAPSULE PO SCH ×2 (08:36→21:43)
[2018-02-28] MEDS: METOPROLOL SUCCINATE 25 MG TABLET PO SCH (08:36)
[2018-02-28] MEDS: FUROSEMIDE 40 MG TABLET PO SCH (08:36)
[2018-02-28] MEDS: SODIUM CHLORIDE FLUSH 0.9% 10 ML SYRINGE IVP SCH ×2 (08:36→18:31)
[2018-02-28] MEDS: LISINOPRIL 5 MG TABLET PO SCH (08:36)
[2018-02-28] MEDS: INSULIN ASPART 300 UNIT/3 ML PEN SUBQ SCH ×7 (08:36→21:45)
--- NOTE | 2018-02-28 15:07 | PROVIDER PROGRESS NOTE ---
Subjective - Prog Note Date Prog Note Date: 02/28/18 Prog Note Time: 13:25 - Subjective Pt reports feeling: Improved Subjective: The patient feels much improved, and says she was "really out of it" yesterday. She is much more awake and alert, she is not moaning, she denies any pain, shortness of breath, fever or chills. Current Medications - Current Medications Current Medications: Active Medications Generic Name Dose Route Start Last Admin Trade Name Freq PRN Reason Stop Dose Admin Acetaminophen 500 mg 02/28/18 06:51 Tylenol PO Q4HR PRN Pain or Fever > 38C (100.4F) Atorvastatin Calcium 10 mg 02/27/18 21:00 02/27/18 20:46 Lipitor PO 10 mg QPM BULL Administration Benzonatate 100 mg 02/27/18 08:29 Tessalon PO TID PRN Cough Furosemide 80 mg 02/27/18 12:00 02/28/18 08:36 Lasix PO 80 mg DAILY BULL Administration Azithromycin 500 mg/ Sodium 250 mls @ 250 mls/hr 02/27/18 09:00 02/28/18 09: 45 Chloride IV Infused DAILY BULL Infusion Insulin Aspart 6 unit 02/27/18 17:00 02/28/18 08:37 Novolog SUBQ Not Given BIDWM BULL Insulin Aspart 8 unit 02/27/18 12:00 02/28/18 12:12 Novolog SUBQ 8 unit 1200 BULL Administration Insulin Aspart 1 - 9 unit 02/27/18 21:00 02/28/18 12:12 Novolog SUBQ 3 unit 0800,1200,1700,2100 BULL Administration Protocol Insulin Glargine 15 unit 02/27/18 21:00 02/27/18 20:46 Lantus Solostar SUBQ 15 unit QPM BULL Administration Lisinopril 10 mg 02/28/18 09:00 02/28/18 08:36 Zestril PO 10 mg DAILY BULL Administration Metoprolol Succinate 25 mg 02/27/18 12:00 02/28/18 08:36 Toprol Xl PO 25 mg DAILY BULL Administration Nitroglycerin 1 patch 02/27/18 12:00 02/28/18 08:36 Nitro-Dur TOP 1 patch DAILY BULL Administration Saccharomyces Boulardii 250 mg 02/27/18 12:00 02/28/18 08:36 Florastor PO 250 mg BID BULL Administration Sodium Chloride 10 ml 02/27/18 08:13 Normal Saline Flush 0.9% IVP PRN PRN NEEDED PER PROVIDER ORDERS Sodium Chloride 10 ml 02/27/18 09:00 02/28/18 08:36 Normal Saline Flush 0.9% IVP 10 ml 0100,0900,1700 BULL Administration Spironolactone 25 mg 02/28/18 08:00 02/28/18 08:36 Aldactone PO 25 mg DAILY BULL Administration Insulin Glargine,Hum.rec.anlog [Lantus Solostar] 15 units SUBQ QPM 07/06/14 Simvastatin [Zocor] 20 mg PO QPM 07/06/14 Allopurinol [Allopurinol] 50 mg PO DAILY 02/27/18 Ferrous Sulfate 325 mg PO DAILY 02/27/18 Furosemide [Furosemide] 40 mg PO DAILY 02/27/18 Lisinopril [Lisinopril] 10 mg PO DAILY 02/27/18 Objective - Vital Signs/Intake & Output Reviewed Vital Signs: Yes Vital Signs: Vital Signs x48h Temp Pulse Pulse Resp BP BP Pulse Ox 02/28/18 10:53 77 110/62 02/28/18 10:42 37.5 C 62 18 119/61 94 Intake & Output: Intake & Output 02/25/18 02/26/18 02/27/18 02/28/18 23:59 23:59 23:59 23:59 Intake Total 1210 1030 Output Total 500 1600 Balance 710 -570 - Objective General Appearance: positive: No acute distress, Alert Eyes Bilateral: positive: Normal inspection, PERRL, EOMI, No lid inflammation, Conjunctivae nml, No scleral icterus ENT: positive: ENT inspection nml, Pharynx nml, No signs of dehydration Neck: positive: Nml inspection, Thyroid nml, No JVD, Trachea midline. negative : Thyromegaly Respiratory: positive: Chest non-tender, No respiratory distress, Breath sounds nml. negative: Wheezes, Rales, Rhonchi Cardiovascular: positive: Regular rate & rhythm, No murmur, No gallop Abdomen: positive: Non-tender, No organomegaly, Nml bowel sounds, No distention. negative: Guarding, Rebound Back: positive: Nml inspection. negative: CVA tenderness (R), CVA tenderness (L ) Skin: positive: Color nml, No rash, Warm, Dry, Pallor. negative: Cyanosis Extremities: positive: Non-tender, Full ROM, Nml appearance, No pedal edema Neurologic/Psychiatric: positive: Oriented x3, CN's nml (2-12), Motor nml, Sensation nml, Mood/affect nml - Lab Results Fish Bones: 02/28/18 05:30 02/28/18 05:30 Other Labs: Lab Results x24hrs 02/28/18 02/28/18 02/28/18 Range/Units 11:45 08:26 07:38 WBC (4.8-10.8) x10^3/uL RBC (4.20-5.40) 10^6/uL Hgb (12.0-16.0) g/dL Hct (37.0-47.0) % MCV (81.0-99.0) fL MCH (27.0-31.0) pg MCHC (32.0-36.0) g/dL RDW (12.0-15.0) % Plt Count (130-450) 10^3/uL MPV (7.9-10.8) fL Sodium (135-145) mmol/L Potassium (3.5-5.0) mmol/L Chloride (101-111) mmol/L Carbon Dioxide (21-32) mmol/L Anion Gap (6-13) BUN (6-20) mg/dL Creatinine (0.4-1.0) mg/dL Estimated GFR (MDRD) (>89) Glucose (70-100) mg/dL POC Whole Bld Glucose 194 H 136 H 56 L* (70 - 100) mg/dL Glycated Hemoglobin (4.6-6.2) % Estim Average Glucose (70-100) Calcium (8.5-10.3) mg/dL B-Natriuretic Peptide (5-100) pg/mL 02/28/18 02/28/18 02/28/18 Range/Units 05:30 05:30 05:30 WBC (4.8-10.8) x10^3/uL RBC (4.20-5.40) 10^6/uL Hgb (12.0-16.0) g/dL Hct (37.0-47.0) % MCV (81.0-99.0) fL MCH (27.0-31.0) pg MCHC (32.0-36.0) g/dL RDW (12.0-15.0) % Plt Count (130-450) 10^3/uL MPV (7.9-10.8) fL Sodium 130 L (135-145) mmol/L Potassium 3.8 (3.5-5.0) mmol/L Chloride 101 (101-111) mmol/L Carbon Dioxide 19 L (21-32) mmol/L Anion Gap 10.0 (6-13) BUN 68 H (6-20) mg/dL Creatinine 3.0 H (0.4-1.0) mg/dL Estimated GFR (MDRD) 15 L (>89) Glucose 64 L (70-100) mg/dL POC Whole Bld Glucose (70 - 100) mg/dL Glycated Hemoglobin 7.6 H (4.6-6.2) % Estim Average Glucose 171 H (70-100) Calcium 7.7 L (8.5-10.3) mg/dL B-Natriuretic Peptide 1199 H (5-100) pg/mL 02/28/18 02/27/18 02/27/18 Range/Units 05:30 20:35 16:53 WBC 5.0 (4.8-10.8) x10^3/uL RBC 2.52 L (4.20-5.40) 10^6/uL Hgb 7.6 L (12.0-16.0) g/dL Hct 22.9 L (37.0-47.0) % MCV 90.8 (81.0-99.0) fL MCH 30.0 (27.0-31.0) pg MCHC 33.0 (32.0-36.0) g/dL RDW 13.6 (12.0-15.0) % Plt Count 182 (130-450) 10^3/uL MPV 7.4 L (7.9-10.8) fL Sodium (135-145) mmol/L Potassium (3.5-5.0) mmol/L Chloride (101-111) mmol/L Carbon Dioxide (21-32) mmol/L Anion Gap (6-13) BUN (6-20) mg/dL Creatinine (0.4-1.0) mg/dL Estimated GFR (MDRD) (>89) Glucose (70-100) mg/dL POC Whole Bld Glucose 107 H 164 H (70 - 100) mg/dL Glycated Hemoglobin (4.6-6.2) % Estim Average Glucose (70-100) Calcium (8.5-10.3) mg/dL B-Natriuretic Peptide (5-100) pg/mL - Diagnostic Imaging Diagnostic Imaging Results: positive: Final report reviewed Diagnostic Imaging Comments: EXAM: CHEST RADIOGRAPHY EXAM DATE: 02/27/2018 05:52 AM. CLINICAL HISTORY: Doesn't feel well. COMPARISON: 02/14/2018. TECHNIQUE: 1 view. FINDINGS: Lungs/Pleura: New bilateral interstitial infiltrates or edema. No pleural effusion seen. No pneumothorax. Mediastinum: Heart size normal to upper normal. Aortic atherosclerosis. Other: Osteopenia. IMPRESSION: 1. New bilateral interstitial infiltrates or edema. ABX Reporting Has patient been on IV antibiotics over the past 48 hours?: Yes Assessment/Plan - Problem List (1) Bilateral pneumonia Impression: The patient's chest x-ray was positive for bilateral pneumonia or edema. We are treating her with ceftriaxone and azithromycin however she may not have pneumonia but instead CHF. She spiked a low-grade fever last night, T-max 38.2 , for the first time since admission and has an oxygen saturation of 94% on room air. We will obtain a chest x-ray tomorrow and reassess. (2) CHF (congestive heart failure) Impression: The patient's chest x-ray was read asBilateral pneumonia versus pulmonary edema. A recent echocardiogram showed her to have an ejection fraction of 70-75 % with significant concentric hypertrophy to the left ventricle. We will repeat the echocardiogram to see if there have been any changes and continue to diurese the patient. Her BNP on admission was 625 and this climbed to 1199 today. We will will monitor the BNP daily. Qualifiers: Qualified Code(s): I50.33 - Acute on chronic diastolic (congestive) heart failure (3) Diabetes mellitus type 2 in nonobese Impression: We have started the patient on a carb controlled diet and restarted her on her home medications with sliding scale for coverage. Her hemoglobin A1c is 7.6, Indicating that she is fairly well-managed at home. (5) Hyperlipidemia Impression: Patient has a history of hyperlipidemia and takes Zocor at home. We will continue this while she is inpatient. (6) History of gout Impression: The patient has a history of gout and takes allopurinol at home; we will continue this while she is inpatient. (7) HTN (hypertension) Impression: We will continue the patient on lisinopril, metoprolol, and Lasix. Blood pressures are Low normal at this time.
[2018-02-28] MEDS: ATORVASTATIN 10 MG TABLET PO SCH (21:43)
[2018-02-28] MEDS: INSULIN GLARGINE 300 UNIT/3 ML PEN SUBQ SCH (21:45)
[2018-03-01] MEDS: SODIUM CHLORIDE FLUSH 0.9% 10 ML SYRINGE IVP SCH ×4 (00:21→23:44)
[2018-03-01 04:59] LABS: HGB - HEMOGLOBIN 8.4 g/dL (12.0-16.0); MEAN CORPUSCULAR HEMOGLOBIN 30.1 pg (27.0-31.0); MEAN PLATELET VOLUME 7.7 fL (7.9-10.8); RED BLOOD COUNT 2.81 10^6/uL (4.20-5.40); RED CELL DISTRIBUTION WIDTH 13.4 % (12.0-15.0); WHITE BLOOD COUNT 4.3 x10^3/uL (4.8-10.8)
[2018-03-01 05:07] LABS: CALCIUM 8.4 mg/dL (8.5-10.3); CREATININE 2.8 mg/dL (0.4-1.0)
--- NOTE | 2018-03-01 07:09 | XRAY Report ---
Procedure Date: 03/01/2018 Accession Number: [id number] / [id number] Procedure: XR - Chest 1 View X-Ray CPT Code: 97539 FULL RESULT: EXAM: CHEST RADIOGRAPHY EXAM DATE: 03/01/2018 06:27 AM. CLINICAL HISTORY: Pna vs chf. COMPARISON: 02/14/2018. 02/27/2018. TECHNIQUE: 1 view. FINDINGS: Lungs/Pleura: Bilateral interstitial abnormality again seen. No pneumothorax. Mediastinum: Cardiomegaly. Aortic tortuosity. Other: Degenerative changes of both shoulders. IMPRESSION: 1. Diffuse interstitial abnormality favoring edema rather than pneumonitis without significant change compared to 02/27/2018 although more prominent compared to 02/14/2018. [facility]
[2018-03-01] MEDS: INSULIN ASPART 300 UNIT/3 ML PEN SUBQ SCH ×6 (08:09→20:47)
[2018-03-01] MEDS: SPIRONOLACTONE 25 MG TABLET PO SCH (08:15)
[2018-03-01] MEDS: SACCHAROMYCES BOULARDII 250 MG CAPSULE PO SCH ×2 (08:15→20:42)
[2018-03-01] MEDS: METOPROLOL SUCCINATE 25 MG TABLET PO SCH (08:15)
[2018-03-01] MEDS: LISINOPRIL 5 MG TABLET PO SCH (08:15)
[2018-03-01] MEDS: AZITHROMYCIN INJ 500 MG in SODIUM CHLORIDE 0.9% 250 ML IV SCH (08:15)
[2018-03-01] MEDS: FUROSEMIDE 40 MG TABLET PO SCH (08:15)
[2018-03-01] MEDS: NITROGLYCERIN 0.1 MG/HR PATCH TOP SCH (08:16)
--- NOTE | 2018-03-01 11:23 | PROVIDER PROGRESS NOTE ---
Subjective - Prog Note Date Prog Note Date: 03/01/18 Prog Note Time: 11:45 - Subjective Pt reports feeling: Improved Subjective: Patient says she feels better today. She denies any fever, chills, chest pain, shortness of breath, nausea, or vomiting. She is breathing easily on room air at this time. Current Medications - Current Medications Current Medications: Active Medications Generic Name Dose Route Start Last Admin Trade Name Freq PRN Reason Stop Dose Admin Acetaminophen 500 mg 02/28/18 06:51 02/28/18 21:43 Tylenol PO 500 mg Q4HR PRN Administration Pain or Fever > 38C (100.4F) Atorvastatin Calcium 10 mg 02/27/18 21:00 02/28/18 21:43 Lipitor PO 10 mg QPM BULL Administration Benzonatate 100 mg 02/27/18 08:29 Tessalon PO TID PRN Cough Furosemide 80 mg 02/27/18 12:00 03/01/18 08:15 Lasix PO 80 mg DAILY BULL Administration Azithromycin 500 mg/ Sodium 250 mls @ 250 mls/hr 02/27/18 09:00 03/01/18 09: 15 Chloride IV Infused DAILY BULL Infusion Insulin Aspart 8 unit 02/27/18 12:00 02/28/18 12:12 Novolog SUBQ 8 unit 1200 BULL Administration Insulin Aspart 1 - 9 unit 02/27/18 21:00 03/01/18 08:09 Novolog SUBQ Not Given 0800,1200,1700,2100 BULL Protocol Insulin Aspart 6 unit 03/01/18 08:00 03/01/18 08:13 Novolog SUBQ 6 unit DAILYWM BULL Administration Insulin Glargine 10 unit 02/28/18 21:00 02/28/18 21:45 Lantus Solostar SUBQ 10 unit QPM BULL Administration Lisinopril 10 mg 02/28/18 09:00 03/01/18 08:15 Zestril PO 10 mg DAILY BULL Administration Metoprolol Succinate 25 mg 02/27/18 12:00 03/01/18 08:15 Toprol Xl PO 25 mg DAILY BULL Administration Nitroglycerin 1 patch 02/27/18 12:00 03/01/18 08:16 Nitro-Dur TOP 1 patch DAILY BULL Administration Saccharomyces Boulardii 250 mg 02/27/18 12:00 03/01/18 08:15 Florastor PO 250 mg BID BULL Administration Sodium Chloride 10 ml 02/27/18 08:13 Normal Saline Flush 0.9% IVP PRN PRN NEEDED PER PROVIDER ORDERS Sodium Chloride 10 ml 02/27/18 09:00 03/01/18 08:16 Normal Saline Flush 0.9% IVP 10 ml 0100,0900,1700 BULL Administration Spironolactone 25 mg 02/28/18 08:00 03/01/18 08:15 Aldactone PO 25 mg DAILY BULL Administration Insulin Glargine,Hum.rec.anlog [Lantus Solostar] 15 units SUBQ QPM 07/06/14 Simvastatin [Zocor] 20 mg PO QPM 07/06/14 Allopurinol [Allopurinol] 50 mg PO DAILY 02/27/18 Ferrous Sulfate 325 mg PO DAILY 02/27/18 Furosemide [Furosemide] 40 mg PO DAILY 02/27/18 Lisinopril [Lisinopril] 10 mg PO DAILY 02/27/18 Objective - Vital Signs/Intake & Output Reviewed Vital Signs: Yes Vital Signs: Vital Signs x48h Temp Pulse Resp BP Pulse Ox 03/01/18 08:09 38.7 C H 68 18 174/50 H 99 03/01/18 04:56 36.8 C 65 20 152/43 H 99 Intake & Output: Intake & Output 02/26/18 02/27/18 02/28/18 03/01/18 23:59 23:59 23:59 23:59 Intake Total 1210 1270 880 Output Total 500 1600 Balance 710 -330 880 - Objective General Appearance: positive: No acute distress, Alert Eyes Bilateral: positive: Normal inspection, PERRL, EOMI, No lid inflammation, Conjunctivae nml, No scleral icterus ENT: positive: ENT inspection nml, Pharynx nml, No signs of dehydration Neck: positive: Nml inspection, Thyroid nml, No JVD, Trachea midline. negative : Thyromegaly Respiratory: positive: Chest non-tender, No respiratory distress, Breath sounds nml. negative: Wheezes, Rales, Rhonchi Cardiovascular: positive: Regular rate & rhythm, No murmur, No gallop Abdomen: positive: Non-tender, No organomegaly, Nml bowel sounds, No distention. negative: Guarding, Rebound Back: positive: Nml inspection. negative: CVA tenderness (R), CVA tenderness (L ) Skin: positive: Color nml, No rash, Warm, Dry. negative: Cyanosis Extremities: positive: Non-tender, Full ROM, Nml appearance, No pedal edema Neurologic/Psychiatric: positive: Oriented x3, CN's nml (2-12), Motor nml, Sensation nml, Mood/affect nml - Lab Results Fish Bones: 03/01/18 04:45 03/01/18 04:45 Other Labs: Lab Results x24hrs 03/01/18 03/01/18 03/01/18 Range/Units 07:46 04:45 04:45 WBC (4.8-10.8) x10^3/uL RBC (4.20-5.40) 10^6/uL Hgb (12.0-16.0) g/dL Hct (37.0-47.0) % MCV (81.0-99.0) fL MCH (27.0-31.0) pg MCHC (32.0-36.0) g/dL RDW (12.0-15.0) % Plt Count (130-450) 10^3/uL MPV (7.9-10.8) fL Sodium 135 (135-145) mmol/L Potassium 3.9 (3.5-5.0) mmol/L Chloride 100 L (101-111) mmol/L Carbon Dioxide 25 (21-32) mmol/L Anion Gap 10.0 (6-13) BUN 64 H (6-20) mg/dL Creatinine 2.8 H (0.4-1.0) mg/dL Estimated GFR (MDRD) 16 L (>89) Glucose 150 H (70-100) mg/dL POC Whole Bld Glucose 91 (70 - 100) mg/dL Calcium 8.4 L (8.5-10.3) mg/dL B-Natriuretic Peptide 1189 H (5-100) pg/mL 03/01/18 03/01/18 03/01/18 Range/Units 04:45 03:52 03:19 WBC 4.3 L (4.8-10.8) x10^3/uL RBC 2.81 L (4.20-5.40) 10^6/uL Hgb 8.4 L (12.0-16.0) g/dL Hct 25.6 L (37.0-47.0) % MCV 91.0 (81.0-99.0) fL MCH 30.1 (27.0-31.0) pg MCHC 33.0 (32.0-36.0) g/dL RDW 13.4 (12.0-15.0) % Plt Count 178 (130-450) 10^3/uL MPV 7.7 L (7.9-10.8) fL Sodium (135-145) mmol/L Potassium (3.5-5.0) mmol/L Chloride (101-111) mmol/L Carbon Dioxide (21-32) mmol/L Anion Gap (6-13) BUN (6-20) mg/dL Creatinine (0.4-1.0) mg/dL Estimated GFR (MDRD) (>89) Glucose (70-100) mg/dL POC Whole Bld Glucose 131 H 66 L (70 - 100) mg/dL Calcium (8.5-10.3) mg/dL B-Natriuretic Peptide (5-100) pg/mL 03/01/18 02/28/18 02/28/18 Range/Units 02:52 20:42 17:12 WBC (4.8-10.8) x10^3/uL RBC (4.20-5.40) 10^6/uL Hgb (12.0-16.0) g/dL Hct (37.0-47.0) % MCV (81.0-99.0) fL MCH (27.0-31.0) pg MCHC (32.0-36.0) g/dL RDW (12.0-15.0) % Plt Count (130-450) 10^3/uL MPV (7.9-10.8) fL Sodium (135-145) mmol/L Potassium (3.5-5.0) mmol/L Chloride (101-111) mmol/L Carbon Dioxide (21-32) mmol/L Anion Gap (6-13) BUN (6-20) mg/dL Creatinine (0.4-1.0) mg/dL Estimated GFR (MDRD) (>89) Glucose (70-100) mg/dL POC Whole Bld Glucose 38 L* 167 H 113 H (70 - 100) mg/dL Calcium (8.5-10.3) mg/dL B-Natriuretic Peptide (5-100) pg/mL 02/28/18 02/28/18 02/28/18 Range/Units 16:40 16:36 11:45 WBC (4.8-10.8) x10^3/uL RBC (4.20-5.40) 10^6/uL Hgb (12.0-16.0) g/dL Hct (37.0-47.0) % MCV (81.0-99.0) fL MCH (27.0-31.0) pg MCHC (32.0-36.0) g/dL RDW (12.0-15.0) % Plt Count (130-450) 10^3/uL MPV (7.9-10.8) fL Sodium (135-145) mmol/L Potassium (3.5-5.0) mmol/L Chloride (101-111) mmol/L Carbon Dioxide (21-32) mmol/L Anion Gap (6-13) BUN (6-20) mg/dL Creatinine (0.4-1.0) mg/dL Estimated GFR (MDRD) (>89) Glucose (70-100) mg/dL POC Whole Bld Glucose 39 L* 37 L* 194 H (70 - 100) mg/dL Calcium (8.5-10.3) mg/dL B-Natriuretic Peptide (5-100) pg/mL - Diagnostic Imaging Diagnostic Imaging Results: positive: Final report reviewed Diagnostic Imaging Comments: EXAM: CHEST RADIOGRAPHY EXAM DATE: 02/27/2018 05:52 AM. CLINICAL HISTORY: Doesn't feel well. COMPARISON: 02/14/2018. TECHNIQUE: 1 view. FINDINGS: Lungs/Pleura: New bilateral interstitial infiltrates or edema. No pleural effusion seen. No pneumothorax. Mediastinum: Heart size normal to upper normal. Aortic atherosclerosis. Other: Osteopenia. IMPRESSION: 1. New bilateral interstitial infiltrates or edema. EXAM: CHEST RADIOGRAPHY EXAM DATE: 03/01/2018 06:27 AM. CLINICAL HISTORY: Pna vs chf. COMPARISON: 02/14/2018. 02/27/2018. TECHNIQUE: 1 view. FINDINGS: Lungs/Pleura: Bilateral interstitial abnormality again seen. No pneumothorax. Mediastinum: Cardiomegaly. Aortic tortuosity. Other: Degenerative changes of both shoulders. IMPRESSION: 1. Diffuse interstitial abnormality favoring edema rather than pneumonitis without significant change compared to 02/27/2018 although more prominent compared to 02/14/2018. ABX Reporting Has patient been on IV antibiotics over the past 48 hours?: Yes Assessment/Plan - Problem List (1) Bilateral pneumonia Impression: The patient's diagnosis of bilateral pneumonia was based on a chest x-ray done in the ED which identified markings as either infiltrate or edema. We have been treating her with ceftriaxone and azithromycin although she has never exhibited elevated leukocytosis. The latest chest x-ray suggests that it is more likely to be edema than pneumonitis and we will therefore stop the patient' s antibiotics and focus on fluid overload/congestive heart failure. (2) CHF (congestive heart failure) Impression: On admission the patient's BNP was 625 and about a day later it was up to 1199. Is trending back downwards, albeit very slowly. We will continue to monitor the patient's fluid status and BNP. Qualifiers: Qualified Code(s): I50.33 - Acute on chronic diastolic (congestive) heart failure (3) Diabetes mellitus type 2 in nonobese Impression: We have started the patient on a carb controlled diet and restarted her on her home medications with sliding scale for coverage. Her hemoglobin A1c is 7.6, indicating that she is fairly well-managed at home. (4) Coronary artery disease Impression: The patient has not had any complaints of chest pain. We have restarted her on her nitroglycerin patch. (5) Hyperlipidemia Impression: Patient has a history of hyperlipidemia and takes Zocor at home. We will continue this while she is inpatient. (6) History of gout Impression: The patient has a history of gout and takes allopurinol at home; we will continue this while she is inpatient. (7) HTN (hypertension) Impression: The patient is hypertensive despite being on lisinopril, metoprolol and Lasix. She was low normal yesterday. I will increase her lisinopril to 20 mg and we will continue to monitor.
[2018-03-01] MEDS ORDERED: LISINOPRIL 20 MG TABLET PO SCH (11:26)
[2018-03-01] MEDS: ATORVASTATIN 10 MG TABLET PO SCH (20:42)
[2018-03-01] MEDS: INSULIN GLARGINE 300 UNIT/3 ML PEN SUBQ SCH (20:45)
[2018-03-02 05:27] LABS: HGB - HEMOGLOBIN 8.4 g/dL (12.0-16.0); MEAN CORPUSCULAR HGB CONC 33.6 g/dL (32.0-36.0); MEAN CORPUSCULAR VOLUME 89.4 fL (81.0-99.0); MEAN PLATELET VOLUME 7.5 fL (7.9-10.8); RED BLOOD COUNT 2.79 10^6/uL (4.20-5.40); RED CELL DISTRIBUTION WIDTH 13.4 % (12.0-15.0); WHITE BLOOD COUNT 4.7 x10^3/uL (4.8-10.8)
[2018-03-02 05:41] LABS: CALCIUM 8.3 mg/dL (8.5-10.3); CREATININE 2.7 mg/dL (0.4-1.0)
[2018-03-02] MEDS: METOPROLOL SUCCINATE 25 MG TABLET PO SCH (08:02)
[2018-03-02] MEDS: SACCHAROMYCES BOULARDII 250 MG CAPSULE PO SCH (08:02)
[2018-03-02] MEDS: SPIRONOLACTONE 25 MG TABLET PO SCH (08:02)
[2018-03-02] MEDS: FUROSEMIDE 40 MG TABLET PO SCH (08:02)
[2018-03-02] MEDS: NITROGLYCERIN 0.1 MG/HR PATCH TOP SCH (08:02)
[2018-03-02] MEDS: INSULIN ASPART 300 UNIT/3 ML PEN SUBQ SCH ×4 (08:02→11:57)
[2018-03-02] MEDS: SODIUM CHLORIDE FLUSH 0.9% 10 ML SYRINGE IVP SCH (08:08)
[2018-03-02 08:17] VITALS: BP 133/52
--- NOTE | 2018-03-02 08:48 | XRAY Report ---
Procedure Date: 03/02/2018 Accession Number: [id number] / [id number] Procedure: XR - Chest 1 View X-Ray CPT Code: 95596 FULL RESULT: EXAM: CHEST RADIOGRAPHY EXAM DATE: 03/02/2018 06:21 AM. CLINICAL HISTORY: Pna vs chf. COMPARISON: None. TECHNIQUE: 1 view. FINDINGS: Lungs/Pleura: Subtle increased interstitial markings with peribronchial cuffing. No focal opacities evident. No pleural effusion. No pneumothorax. Mediastinum: Within exam limitations, the cardiomediastinal contour is normal. Other: None. IMPRESSION: 1. No focal consolidation. 2. Subtle increased interstitial markings appear by Makayla cuffing are nonspecific but can be seen in the setting of reactive airways disease, bronchitis and viral infection. RADIA
[2018-03-02] MEDS ORDERED: SODIUM CHLORIDE 1 GM TABLET PO SCH (09:00)
--- NOTE | 2018-03-02 09:23 | Discharge Plan ---
"Discharge Plan for SNF / [facility] - DC Plan and Transition Orders Disposition: 01 Home, Self Care Condition: Stable SNF Transition Orders: Admit to: [Facility] under the care of [Doctor Name] Discharge Diagnosis: [] Medicare Certification: I certify that [facility] long[facility] care is medically necessary on a continuing basis for any of the conditions for which she/he is receiving care during hospitalization. Notify PCP of admission and forward orders to primary provider for signature. Weight on admission and [Daily/Weekly/Monthly]. Call PCP immediately if weight increases by [Number] pounds or if patient develops dyspnea, chest pain/ tightness or edema. House Bowel Program: [Yes/No] If no BM after 2 days, nurse may give M.O.M. 30ml PO PRN and /or ducolax Supp 1 UT and /or JANUSZ 250mg P.O., and/or senna 1-2 tabs PO. On day 3 nurse may give repeat above order until residents constipation is resolved. Immunizations: Annual Influenza Vaccine: [Yes/No]. (between Apr 28 and November 25.) Unless allergy or already given Two-Step PPD: [Yes/No] per [facility] [id number] or appropriate documentation of approved exceptions Treatments & Other Orders: [] Oxygen Orders: [] Lab Tests or X-Rays Orders: [] Orthopedic Orders: [Remove Sutures/[place] and Comment]. Medications: PLEASE REFER TO THE DISCHARGE MEDICATION LIST. Insulin Orders? [Yes/No] Diagnosis: Diabetes Initiate hypo and hyperglycemia protocols for BG <70 and BG >375. May check BG prn for signs/symptoms of dysglycemia. Frequency of BG checks: [AC/Meal/HS] Basal Insulin: [] Lantus 100 units / ml inject subq as follows: [] [] Other: [] Correction Insulin: - Select the type of insulin below [Choose: Novolog/Humalog]100 units /ml insulin inject subq per orders indicate below [] LOW DOSE [] MODERATE DOSE [] MODERATE/HIGH DOSE [] HIGH DOSE GB UNITS GB UNITS GB UNITS GB UNITS 61-140 0 UNITS 61-140 0 UNITS 61-140 0 UNITS 61-140 0 UNITS 141-175 1 UNITS 141-175 1 UNITS 141-175 2 UNITS 141-175 3 UNITS 176-225 2 UNITS 176-225 3 UNITS 176-225 4 UNITS 176-225 5 UNITS 226-275 3 UNITS 226-275 5 UNITS 226-275 6 UNITS 226-275 7 UNITS 276-325 4 UNITS 276-325 7 UNITS 276-325 8 UNITS 276-325 9 UNITS 326-375 5 UNITS 326-375 9 UNITS 326-375 10 UNITS 326-375 11 UNITS >375 CONTACT MD >375 CONTACT MD >375 CONTACT MD >375 CONTACT MD Custom Dosing: [Choose: None/Novolog/Humalog] 100 units/ml Insulin inject subq as follows: GB Units 61-140 [] Units 141-175 [] Units 176-225 [] Units 226-275 [] Units 276-325 []Units 326-375 [] Units >375 Contact MD Allergies and Adverse Reactions: Allergies Allergy/AdvReac Type Severity Reaction Status Date / Time butalbital [From [facility]] Allergy Unknown Verified 02/27/18 05:42 Sulfa (Sulfonamide Allergy Unknown Verified 02/27/18 05:42 Antibiotics) sulfamethoxazole Allergy Unknown Verified 02/27/18 05:42 [From Aprra] trimethoprim [From ] Allergy Unknown Verified 02/27/18 05:42 venom-honey bee Allergy Anaphylaxis Verified 02/27/18 05:42 [bee venom (honey bee)] - Diet Type: No added salt Texture: Regular Liquids: Thin May have monthly special meal: Yes - Therapies | Activity Rehabilitation Potential: Maximize functional status Activity: Activity as Tolerated Weight Bearing: Full Weight Assistance Devices: Walker Follow Up: With Tabitha Kignston or your new primary care physician in 1 week"
--- NOTE | 2018-03-02 11:15 | DISCHARGE SUMMARY ---
Discharge Summary Admit Date: 02/27/18 Discharge Date: 03/02/18 Discharging Provider: Vika Katz DO Primary Care Provider: Tabitha Kingston Code Status: Attempt Resuscitation Condition at Discharge: Stable Discharge Disposition: 01 Home, Self Care - DIAGNOSES Admission Diagnoses: 1. Bilateral pneumonia 2. Congestive heart failure 3. Diabetes mellitus type 2 in nonobese 4. Coronary artery disease 5. Hyperlipidemia 6. History of count 7. Hypertension Discharge Diagnoses with Status of Each Condition: 1. Bilateral pneumonia- The patient's diagnosis of bilateral pneumonia was based on a chest x-ray done in the ED which identified markings as either infiltrate or edema. We had been treating her with ceftriaxone and azithromycin although she had never exhibited elevated leukocytosis. The latest chest x-ray suggested that it was more likely to be edema than pneumonitis and so we stopped the patient's antibiotics and focused on fluid overload/congestive heart failure. 2. Congestive heart failure- On admission the patient's BNP was 625 and about a day later it was up to 1199. Is trending back downwards, albeit very slowly, down to 947 today. She will continue her diuretics at home. 3. Diabetes mellitus type 2 in nonobese- While here we placed the patient on carb controlled diet and restarted her home medications with sliding scale for coverage. Her hemoglobin A1c was 7.6 indicating that she is fairly well managed at home and we will continue this on discharge. 4. Coronary artery disease- Patient has not had any complaints of chest pain or shown signs of cardiac ischemia. She will continue on her nitroglycerin patch at home. 5. Hyperlipidemia- Patient has a history of hyperlipidemia and takes Zocor at home. This is presumably well managed. We will restart this on her discharge medications. 6. History of gout- The patient has a history of gout and takes allopurinol at home; we continued this while she was inpatient and will again continue this at home on discharge. 7. Hypertension- Patient's blood pressure is very labile. Her last four blood pressures were 149/44, 156/82, 171/55, and 133/52. She is on 3 blood pressure medications and we will continue these at home. - HPI History of Present Illness: Ayde Boudreaux is a very pleasant 87-year-old female with an extensive past medical history significant for diabetes, congestive heart failure, hypertension , hyperlipidemia, mild aortic stenosis, chronic kidney disease stage IV, and sciatica who has been weak for the last several days and today he just felt ill so she placed her life alert alarm. When EMS got to her home they noted that she was having difficulty making her needs known and was mumbling. The patient' s mental status started to clear over the next several hours and she now appears to be close to baseline. While in the emergency department the pt was found to have bilateral pneumonia, hyponatremia, and renal insufficiency with a creatinine of 3.1. - HOSPITAL COURSE Hospital Course: The patient was admitted to the hospital in a delirious state. She returned to her baseline approximately 24 hours later, and has been lucid since that time. She was initially admitted with a diagnosis of bilateral pneumonia as per the readings of the radiologist however it appears that the patient actually had an acute exacerbation of congestive heart failure and we stopped antibiotics 2 days ago. We corrected several electrolyte imbalances and the patient is now breathing easily on room air and eating without any difficulty. She will therefore be discharged home. - ALLERGIES Allergies/Adverse Reactions: Allergies Allergy/AdvReac Type Severity Reaction Status Date / Time butalbital [From Fiorinal] Allergy Unknown Verified 02/27/18 05:42 Sulfa (Sulfonamide Allergy Unknown Verified 02/27/18 05:42 Antibiotics) sulfamethoxazole Allergy Unknown Verified 02/27/18 05:42 [From Septra] trimethoprim [From Aprra] Allergy Unknown Verified 02/27/18 05:42 venom-honey bee Allergy Anaphylaxis Verified 02/27/18 05:42 [bee venom (honey bee)] - MEDICATIONS Home Medications: Ambulatory Orders Medication Instructions Recorded Confirmed Insulin Glargine,Hum.rec.anlog 15 units SUBQ QPM 07/06/14 02/27/18 [Lantus Solostar] Simvastatin [Zocor] 20 mg PO QPM 07/06/14 02/27/18 Metoprolol Succinate [Toprol Xl] 25 mg PO DAILY tablet 10/20/17 02/27/18 Insulin Glulisine [Apidra Solostar] 8 unit SUBQ 1200 #1 10/21/17 02/27/18 Insulin Glulisine [Apidra] 6 unit SUBQ BIDWM #1 10/21/17 02/27/18 hydroCHLOROthiazide [Hydrodiuril] 25 mg PO DAILY #30 10/21/17 02/27/18 Nitroglycerin 0.1 mg/Hr Patch 1 each TOP DAILY #30 patch 12/11/17 02/27/18 [Nitro-Dur] Lidocaine Patch 5% [Lidoderm Patch] 1 each TOP DAILY #10 patch 02/08/18 02/27/18 Allopurinol 50 mg PO DAILY 02/27/18 02/27/18 Ferrous Sulfate 325 mg PO DAILY 02/27/18 02/27/18 Furosemide 40 mg PO DAILY 02/27/18 02/27/18 Lisinopril 10 mg PO DAILY 02/27/18 02/27/18 - PHYSICAL EXAM AT DISCHARGE General Appearance: positive: No acute distress, Alert, Mild distress Eyes Bilateral: positive: Normal inspection, PERRL, EOMI, No lid inflammation, Conjunctivae nml, No scleral icterus ENT: positive: ENT inspection nml, Pharynx nml, No signs of dehydration Neck: positive: Nml inspection, Thyroid nml, No JVD, Trachea midline. negative : Thyromegaly Respiratory: positive: Chest non-tender, No respiratory distress, Breath sounds nml. negative: Wheezes, Rales, Rhonchi Cardiovascular: positive: Regular rate & rhythm, No murmur, No gallop Peripheral Pulses: positive: 1+ Abdomen: positive: Non-tender, No organomegaly, Nml bowel sounds, No distention. negative: Guarding, Rebound Back: positive: Nml inspection. negative: CVA tenderness (R), CVA tenderness (L ) Skin: positive: Color nml, No rash, Warm, Dry. negative: Cyanosis Extremities: positive: Non-tender, Full ROM, Nml appearance, No pedal edema Neurologic/Psychiatric: positive: Oriented x3, CN's nml (2-12), Motor nml, Sensation nml, Mood/affect nml - LABS Result Diagrams: 03/02/18 04:55 03/02/18 04:55 - DIAGNOSTIC IMAGING Diagnostic Imaging Results: Final report reviewed Diagnostic Imaging Results Comments: EXAM: CHEST RADIOGRAPHY EXAM DATE: 02/27/2018 05:52 AM. CLINICAL HISTORY: Doesn't feel well. COMPARISON: 02/14/2018. TECHNIQUE: 1 view. FINDINGS: Lungs/Pleura: New bilateral interstitial infiltrates or edema. No pleural effusion seen. No pneumothorax. Mediastinum: Heart size normal to upper normal. Aortic atherosclerosis. Other: Osteopenia. IMPRESSION: 1. New bilateral interstitial infiltrates or edema. EXAM: CHEST RADIOGRAPHY EXAM DATE: 03/01/2018 06:27 AM. CLINICAL HISTORY: Pna vs chf. COMPARISON: 02/14/2018. 02/27/2018. TECHNIQUE: 1 view. FINDINGS: Lungs/Pleura: Bilateral interstitial abnormality again seen. No pneumothorax. Mediastinum: Cardiomegaly. Aortic tortuosity. Other: Degenerative changes of both shoulders. IMPRESSION: 1. Diffuse interstitial abnormality favoring edema rather than pneumonitis without significant change compared to 02/27/2018 although more prominent compared to 02/14/2018. - FOLLOW UP Follow Up: Follow-up with your primary care physician in 1 week. - TIME SPENT Time Spent in Discharge (Minutes): 45
--- NOTE | 2018-03-02 11:48 | Discharge Plan ---
Discharge Plan Disposition: 03 SNF DC/Xfer Condition: Stable Prescriptions: Insulin Glargine [Lantus Solostar] 10 unit SUBQ QPM #1 pen Lisinopril [Prinivil] 20 mg PO DAILY #30 tablet Diet: Low Sodium Activity Restrictions: Activity as Tolerated Shower Restrictions: No Driving Restrictions: No Assistance Devices: Walker Weight Bearing: Full Weight Instruction Topics: Vaccination Pneumococcal, Hypoglycemia, Pneumonia Prevent, Hypertension Dc, Blood Pressure Dc, Hypoglycemia Steps No Smoking: If you smoke, Please STOP! Call for help. Follow-up with: Tabitha Kingston MD [Primary Care Provider] -
== END 2018-03-02 13:25 | disposition home or self-care (01) | DRG 291 ==
LOC: EDUNIT# → ED 05:30 → SUPCPDRO 05:30 → MS2 08:13
PROVIDERS: ADMIT Hospitalist; ATTEND Hospitalist
DX: T68.XXXA Hypothermia, initial encounter (principal); X58.XXXA Exposure to other specified factors, initial encounter; J18.9 Pneumonia, unspecified organism; J44.0 Chronic obstructive pulmonary disease with (acute) lower respiratory infection; E11.9 Type 2 diabetes mellitus without complications; I11.0 Hypertensive heart disease with heart failure; I50.9 Heart failure, unspecified; I13.0 Hypertensive heart and chronic kidney disease with heart failure and stage 1 through stage 4 chronic kidney disease, or unspecified chronic kidney disease; I50.33 Acute on chronic diastolic (congestive) heart failure; N18.4 Chronic kidney disease, stage 4 (severe); E87.1 Hypo-osmolality and hyponatremia; E11.22 Type 2 diabetes mellitus with diabetic chronic kidney disease; J44.9 Chronic obstructive pulmonary disease, unspecified; E78.5 Hyperlipidemia, unspecified; I25.10 Atherosclerotic heart disease of native coronary artery without angina pectoris; I35.0 Nonrheumatic aortic (valve) stenosis; I48.91 Unspecified atrial fibrillation; M10.9 Gout, unspecified; Z79.4 Long term (current) use of insulin; Z79.899 Other long term (current) drug therapy
CPT/HCPCS: 36415; 51703; 71045; 80048; 80053; 81001; 81003; 83036; 83605; 83690; 83880; 84443; 84484; 85025; 85027; 87040; 87045; 87046; 87086; 87493; 93005; 93306; 96365; 99284; 99285